=== PATIENT | female | born 1985 | race African-American/Black ===

== ENCOUNTER 2023-06-23 09:17 | Emergency (ER) | payer SELFPAY ==
[2023-06-23 09:19] VITALS: BP 153/95; PULSE 96; RESP 16; TEMP 36.5; O2SAT 100
--- NOTE | 2023-06-23 09:30 | ED.GENADULT ---
HPI - General Adult General Chief complaint: Extremity Problem,Nontraumatic Stated complaint: R THUMB PAIN Time Seen by Provider: 06/23/23 09:21 History of Present Illness HPI narrative: Srinivas Barakat is a 37 y/o female who presents today with complaints of pain to right thumb for 2 days. She denies any known trauma or injury. Related Data Allergies Allergy/AdvReac Type Severity Reaction Status Date / Time blueberry Allergy Difficulty Verified 06/23/23 09:24 Breathing quetiapine [From Seroquel] AdvReac Other Verified 06/23/23 09:24 Review of Systems Review of Systems: CONSTITUTIONAL: Denies fever, chills, or sweats. EYES: Denies visual changes, redness, or discharge. ENT: Denies rhinorrhea, congestion, sore throat, or otalgia. CARDIOVASCULAR: Denies chest pain, palpitations, or edema. RESPIRATORY: Denies cough or dyspnea. GASTROINTESTINAL: Denies abdominal pain, nausea, vomiting, or diarrhea. GENITOURINARY: Denies dysuria or hematuria. SKIN: Denies rash or itching. MUSCULOSKELETAL: Denies back pain, Complains of pain to right thumb NEUROLOGIC: Denies headache, numbness, dizziness, or weakness. PSYCHIATRIC: Denies anxiety or depression. Exam Narrative: GENERAL: Well-appearing, well-nourished, and in no acute distress. HEAD: Normocephalic, atraumatic. EYES: PERRLA and EOMI. ENT: Nares clear, no rhinorrhea or epistaxis. Mucous membranes moist. Oropharynx without tonsillar hypertrophy exudate or other lesions. Bilateral TMs pearly willett nonbulging NECK: Supple. No adenopathy or masses. No carotid bruits or JVD CHEST: Clear to auscultation. No respiratory distress. No wheezes rales or rhonchi HEART: Regular rate and rhythm. No murmur heard. Normal peripheral pulses. ABDOMEN: Soft, nontender, nondistended, normal active bowel sounds. EXTREMITIES: Normal range of motion. Swelling around right thumbnail obvious for paronychia SKIN: Warm, dry, no rash. NEURO: No focal deficits. Alert and oriented x3. PSYCH: Normal mood and affect. Course Vital Signs Vital signs: Vital Signs Temperature 36.5 C 06/23/23 09:19 Pulse Rate 96 06/23/23 09:19 Respiratory Rate 16 09/28/23 09:19 Blood Pressure 153/95 H 06/23/23 09:19 Pulse Oximetry 100 06/23/23 09:19 Oxygen Delivery Room Air 06/23/23 09:19 Temperature 36.5 C 06/23/23 09:19 Pulse Rate 96 06/23/23 09:19 Respiratory Rate 16 06/23/23 09:19 Blood Pressure 153/95 H 06/23/23 09:19 Pulse Oximetry 100 06/23/23 09:19 Oxygen Delivery Room Air 06/23/23 09:19 Procedures Abscess I/D hand: Date of Incision: 06/23/23 Time of Incision: 09:51 Side (if applicable): right Local Anesthetic: none Technique: needle aspiration (stab incision with 21g needle ) Amount of fluid expressed (mL): 2 Packing used?: none I&D Results: Pus and Blood Abcess I&D Additional Comments: patient reports pain reilef after expressing a moderate amount of pus Medical Decision Making MDM Narrative Medical decision making narrative: On exam pt is noted to have swelling around paronychia to right thumb. NO Felon present Moderate swelling and pain noted on exam Talked with pt about doing an incision to get the area to drain and start oral antibiotics. Patient verbalizes understanding and agreement Moderate amount of pus removed from right thumb, pt tolerated and reports of pain relief after procedure Patient encouraged to continue antibiotics as ordered, follow up with PCP in1 week Return to the ED for any worsening symptoms or concerns. Differential Diagnosis Differential Diagnosis: paronychia/ acute infection/ felon Medical Records Medical records reviewed: Yes I reviewed the external patient's medical records. Vital Signs Vital Signs: Vital Signs Temperature 36.5 C 06/23/23 09:19 Pulse Rate 96 06/23/23 09:19 Respiratory Rate 16 06/23/23 09:19 Blood Pressure 153/
[2023-06-23] MEDS: NAPROXEN 500 MG TABLET PO (09:34)
[2023-06-23] MEDS: CEPHALEXIN 500 MG CAPSULE PO (09:35)
== END 2023-06-23 09:54 | disposition home or self-care (01) ==
LOC: ANHED 09:44
PROVIDERS: Emergency Provider Nurse Practitioner Family
DX: L03.011 Cellulitis of right finger (principal)
CPT/HCPCS: 10060; 26010; 87070; 87077; 87186; 87205; 99283; A9270

== ENCOUNTER 2023-07-14 13:46 | Emergency (ER) | payer SELFPAY ==
--- NOTE | ~2023-07-14 | XR_ITS ---
Right Hand Technique: PA, oblique, and lateral views were obtained. Clinical History: Pain and swelling Findings: No acute fracture or dislocation is seen. Osseous alignment is anatomic. Joint spaces are p reserved. Soft tissues are unremarkable. Impression: Unremarkable right hand. Reviewed, dictated and finalized at location . Impression: Unremarkable right hand.
[2023-07-14 13:50] VITALS: BP 122/75; PULSE 100; RESP 18; TEMP 36.1; O2SAT 100
[2023-07-14] MEDS: LIDO 1%/EPINEPHRINE 1:100,000 20 ML VIAL INFILTRATE (15:24)
--- NOTE | 2023-07-14 16:38 | ED.GENADULT ---
HPI - General Adult General Chief complaint: Extremity Injury, Upper Stated complaint: left thumb infection Time Seen by Provider: 07/14/23 14:49 History of Present Illness HPI narrative: Patient is a 37-year-old female who presents ER with infection to her left thumb. Ongoing over the last week and a half. She has been having drainage from around the fingernail of the affected finger. It all began when she had acrylic nails that then broke off and dug into the area. No fevers or chills. No streaking up the arm. There is some skin sloughing of the affected thumb. The thumb feels swollen and has increased pain with bending. Related Data Allergies Allergy/AdvReac Type Severity Reaction Status Date / Time blueberry Allergy Difficulty Verified 06/23/23 09:24 Breathing quetiapine [From Seroquel] AdvReac Other Verified 06/23/23 09:24 Review of Systems Musculoskeletal: Musculoskeletal: Reports arthralgias and Reports joint swelling Integumentary/Breasts: Skin/Breast: Denies erythema and Denies rash Comments: Infection left thumb PMFSH Past Medical History Medical History (Updated 07/14/23 @ 21:36 by Julio Ames MD) Healthy female adult Surgical History Surgical History (Updated 07/14/23 @ 21:36 by Julio Ames MD) No pertinent past surgical history Exam Narrative: GENERAL: Well-appearing, well-nourished, and in no acute distress. HEAD: Normocephalic, atraumatic. CHEST: Clear to auscultation. No respiratory distress. HEART: Regular rate and rhythm. Normal peripheral pulses. EXTREMITIES: Left thumb with paronychia over the radial aspect. Swelling extending into the fat pad of the finger and down towards the first MCP no overt cellulitis. SKIN: Warm, dry, no rash. NEURO: Alert and oriented x3. PSYCH: Normal mood and affect. Course Course Emergency Course: Patient tolerated drainage well. A extra piece of fingernail/acrylic nail was removed from the affected area. Significant amounts of pus were expressed. Loculations probed and broken up. Discharged on oral antibiotic. Vital Signs Vital signs: Vital Signs Temperature 96.9 F L 07/14/23 13:50 Pulse Rate 100 07/14/23 13:50 Respiratory Rate 18 07/14/23 13:50 Blood Pressure 122/75 07/14/23 13:50 Pulse Oximetry 100 07/14/23 13:50 Temperature 96.9 F L 07/14/23 13:50 Pulse Rate 100 07/14/23 13:50 Respiratory Rate 18 07/14/23 13:50 Blood Pressure 122/75 07/14/23 13:50 Pulse Oximetry 100 07/14/23 13:50 Procedures Abscess I/D thumb: Date of Incision: 07/14/23 Time of Incision: 16:30 Side (if applicable): right Local Anesthetic: lidocaine 1% and with epi Amount of anesthesia used (mL): 1.5 Technique: incised with #11 blade Packing used?: none I&D Results: Pus and Other (retained nail) Medical Decision Making Vital Signs Vital Signs: Vital Signs Temperature 96.9 F L 07/14/23 13:50 Pulse Rate 100 07/14/23 13:50 Respiratory Rate 18 07/14/23 13:50 Blood Pressure 122/75 07/14/23 13:50 Pulse Oximetry 100 07/14/23 13:50 Temperature 96.9 F L 07/14/23 13:50 Pulse Rate 100 07/14/23 13:50 Respiratory Rate 18 07/14/23 13:50 Blood Pressure 122/75 07/14/23 13:50 Pulse Oximetry 100 07/14/23 13:50 Imaging Data Radiologist's impression: ITS Impressions Hand X-Ray 07/14/23 14:27 Impression: Unremarkable right hand. Discharge Plan Discharge Clinical Impression: Paronychia Patient Disposition: Home, Self-Care Condition: Stable Instructions: Antibiotic Form, Paronychia (ED) Additional Instructions: Return the ER if you have fever over 100.4 ?F, you cannot keep down food or water, you lose consciousness, you have additional concerns. Prescriptions: New sulfamethoxazole-trimethoprim [Bactrim DS] 800-160 mg tablet 1 tablet PO Q12H Qty: 14 0RF hydrocodone-aceta
== END 2023-07-14 16:56 | disposition home or self-care (01) ==
PROVIDERS: Emergency Provider Emergency Medicine
DX: L03.012 Cellulitis of left finger (principal)
CPT/HCPCS: 26010; 73130; 99283

== ENCOUNTER 2023-07-18 12:14 | Emergency (ER) | payer SELFPAY ==
--- NOTE | ~2023-07-18 | XR_ITS ---
XR hand RT min 3V 07/18/2023 12:33 Indication: Right hand pain after recent injury Procedure: 3 views right hand Comparison: 07/14/2023 Findings: There is a nondisplaced intra-articular fracture proximal aspect of the first distal phalan x. Mild soft tissue swelling. No other fracture. No foreign bodies. Impression: 1: Nondisplaced intra-articular fracture first distal phalanx. Reviewed, dictated and finalized at location B. Impression: 1: Nondisplaced intra-articular fracture first distal phalanx.
--- NOTE | ~2023-07-18 | CT_ITS ---
EXAMINATION: CT hand RT w con DATE: 07/18/2023 14:56 INDICATION: Cellulitis. Assess for abscess. TECHNIQUE: High resolution computed tomography (CT) of the right hand was performed with 100 mL Omnip aque-350 intravenous contrast. Additional sagittal and coronal reconstructions were performed. Automa albino exposure control and iterative reconstruction technique were employed. The dose-length product wa s 502.28 mGy-cm. COMPARISON: Right hand radiographs dated 07/18/2023 FINDINGS: There is osteolysis along a nondisplaced intra-articular fracture at the base of the right first dist al phalanx. There is prominent soft tissue swelling about the first digit with soft tissue gas tracki ng 3 cm proximally from the level of the fracture along the dorsal/ulnar side of the proximal phalanx which is concerning for necrotizing fasciitis. No evident abscess. Extensive soft tissue swelling an d subcutaneous edema extending approximately in the hand across the dorsal aspect of the metacarpals consistent with cellulitis. Alignment remains essentially anatomic. No other fractures identified. Th ere are some mild joint space narrowing at the first interphalangeal joint which appears new since ra diographs from 4 days prior consistent with associated septic arthritis. Remaining joint spaces appea r normal. IMPRESSION: 1. Nondisplaced intra-articular fracture of the base of the right first distal phalanx with new osteo lysis consistent with osteomyelitis and soft tissue gas extending along the proximal phalanx, the lat ter concerning for necrotizing fasciitis. Dr. Hernandez discussed these findings with Dr. Wolf at 3: 30 PM. Reviewed, dictated and finalized at location A. IMPRESSION: 1. Nondisplaced intra-articular fracture of the base of the right first distal phalanx with new osteolysis consistent with osteomyelitis and soft tissue gas e xtending along the proximal phalanx, the latter concerning for necrotizing fasc iitis. Dr. Hernandez discussed these findings with Dr. Wolf at 3:30 PM.
[2023-07-18 12:17] VITALS: BP 102/82; PULSE 96; RESP 18; TEMP 37.1; O2SAT 100
[2023-07-18] MEDS: HYDROmorphone HCL INJ (*CRX) 1 MG/ML SYR 0.5 MG IV PUSH (13:09)
[2023-07-18] MEDS: ceFAZolin 1 GM/NS 50 ML 1 GM/50 ML BAG IVPB (13:10)
[2023-07-18 14:02] LABS: Basophils Percent Auto 0.3 % (0.2-1.2); Eosinophils Percent Auto 0.4 % (0-4.4); Hematocrit 29.8 % (37.0-47.0); Hemoglobin 9.2 g/dL (12.0-15.0); Immature Granulocyte Absolute 0.03 K/mm3 (0.00-0.031); Immature Granulocyte Percent A 0.3 % (0-0.5); Lymphocytes Absolute Auto 0.79 K/mm3 (0.9-3.2); Lymphocytes Percent Auto 7.1 % (18.3-44.2); Mean Corpuscular HGB Conc 30.9 g/dl (32-36); Mean Corpuscular Hemoglobin 24.8 pg (26-34); Mean Corpuscular Volume 80.3 fl (80-100); Mean Platelet Volume 9.8 fl (7.4-10.4); Monocytes Absolute Auto 1.1 K/mm3 (0.1-0.6); Monocytes Percent Auto 9.8 % (2.6-8.5); Neutrophils Absolute Auto 9.2 K/mm3 (1.3-6.7); Neutrophils Percent Auto 82.1 % (45.5-73.1); Platelet Count Result 318 k/mm3 (150-375); Red Blood Count 3.71 M/mm3 (4.2-5.4); Red Cell Distribution Width 17.1 % (11.5-14.5); White Blood Count 11.2 K/mm3 (4.5-10.0)
[2023-07-18 14:15] LABS: Lactic Acid Reflex 0.8 mmol/L (0.7-2.0)
[2023-07-18 14:27] LABS: Alanine Aminotransferase 12 U/L (6-35); Albumin Level 4.4 g/dL (3.5-5.1); Alkaline Phosphatase 92 U/L (38-126); Anion Gap 11 mmol/L (8-16); Aspartate Amino Transferase 14 U/L (14-36); Bilirubin,Total 0.4 mg/dL (0.2-1.3); Blood Urea Nitrogen 17 mg/dL (7-17); Calcium 9.2 mg/dL (8.4-10.2); Carbon Dioxide 20 mmol/L (22-30); Chloride 99 mmol/L (98-107); Estimated CRCL calculation 42 ml/min; Estimated Glomerular Filt Rate > 60; Glucose 273 mg/dL (65-110); Potassium 4.4 mmol/L (3.4-5.0); Sodium 130 mmol/L (137-145)
[2023-07-18 14:30] LABS: CRP 14.7 mg/dL (<1.0)
[2023-07-18 14:44] LABS: Prothrombin Time 13.7 Seconds (11.1-14.7)
[2023-07-18 14:45] LABS: Partial Thromboplastin Time 34.7 SECONDS (22.3-36.8)
--- NOTE | 2023-07-18 15:48 | ED.UPPEXIN ---
HPI - Extremity Injury (Upper) General Chief Complaint: Extremity Injury, Upper Stated Complaint: right thumb swelling Time Seen by Provider: 07/18/23 12:45 History of Present Illness HPI narrative: Pt smashed right thumb in car door and developed paronychia. Pt was seen here 07/14 and had drainage of paronychia. x rays at that time read as negative. Pt says that the pain and swelling in her thumb has increased and gotten much worse over the last days or so. Pt says she has pain up into her wrist and forearm. Pt denies fever. Pt has some tenderness in her right axilla. Related Data Allergies Allergy/AdvReac Type Severity Reaction Status Date / Time blueberry Allergy Difficulty Verified 07/18/23 12:15 Breathing quetiapine [From Seroquel] AdvReac Other Verified 07/18/23 12:15 Review of Systems Review of Systems: All systems reviewed & are unremarkable except as noted in HPI and below PMFSH Past Medical History Medical History (Updated 07/18/23 @ 16:09 by Chapis Wolf III, DO) Healthy female adult Surgical History Surgical History (Updated 07/14/23 @ 21:36 by Jluio Ames MD) No pertinent past surgical history Exam Const: General: healthy appearing Nutritional Appearance: well nourished Orientation/consciousness: patient oriented x3 Limitations: no limitations Resp: Effort & Inspection: normal respiratory effort Auscultation: clear to auscultation bilaterally Cardio: Rate: regular rate Rhythm: regular rhythm GI: GI Palp: Yes Soft to palpation Auscultation: normal bowel sounds Skin: Other: swelling and erythematous right thumb extremely tender Neuro: General: patient oriented x3, moves all extremities and no focal motor deficits Speech: normal speech Extrem: Other: very swollen and erythematous right 1st distal phalynx. right axillary nodes Psych: Mental Status: mental status grossly normal Affect: normal affect Attitude: cooperative Course Vital Signs Vital signs: Vital Signs Temperature 98.8 F 07/18/23 12:17 Pulse Rate 96 07/18/23 12:17 Respiratory Rate 18 07/18/23 12:17 Blood Pressure 102/82 07/18/23 12:17 Pulse Oximetry 100 07/18/23 12:17 Oxygen Delivery Room Air 07/18/23 12:17 Temperature 98.7 F 10/23/23 16:34 Pulse Rate 95 07/18/23 16:34 Respiratory Rate 20 07/18/23 16:34 Blood Pressure 127/81 07/18/23 16:34 Pulse Oximetry 98 07/18/23 16:34 Oxygen Delivery Room Air 07/18/23 12:17 MDM - Extremity Injury (Upper) MDM Narrative Medical decision making narrative: concern for abscess or osteo or even NEC with degree of pain and swelling. will order labs and CT. Will give dose of ancep while waiting. Pt has intrarticular fx 1st distal phalynx on x ray. ct shows this as well as osteo and gas tracking concerning for NEC. Discussed with pt and boyfriend and would prefer [facility]. discussed with Dr Diggs hand surgeon who recommends transfer to ER where they will see her. discussed with Dr Posadas and agrees to accept to ER. said give cefipime and vanc if it will not delay transfer ([facility] will) Lab Data 07/18/23 13:53 07/18/23 13:53 Labs: Lab Results 07/18/23 Range/Units 13:53 WBC 11.2 H (4.5-10.0) K/mm3 RBC 3.71 L (4.2-5.4) M/mm3 Hgb 9.2 L (12.0-15.0) g/dL Hct 29.8 L (37.0-47.0) % MCV 80.3 (80-100) fl MCH 24.8 L (26-34) pg MCHC 30.9 L (32-36) g/dl RDW 17.1 H (11.5-14.5) % Plt Count 318 (150-375) k/mm3 MPV 9.8 (7.4-10.4) fl Immature Gran % (Auto) 0.3 (0-0.5) % Neut % (Auto) 82.1 H (45.5-73.1) % Lymph % (Auto) 7.1 L (18.3-44.2) % Geary % (Auto) 9.8 H (2.6-8.5) % Eos % (Auto) 0.4 (0-4.4) % Baso % (Auto) 0.3 (0.2-1.2) % Lymph # (Auto) 0.79 L (0.9-3.2) K/mm3 Geary # (Auto) 1.1 H (0.1-0.6) K/mm3 Eos # (Auto) 0.0 (0-0.3) K/mm3 Baso # (Auto) 0.0 (0.0-0.1) K/mm3 Abs Immat Gran (auto) 0.03 (0.00-0.031) K/mm3 Absol
[2023-07-18] MEDS: HYDROmorphone HCL INJ (*CRX) 1 MG/ML SYR IV PUSH (16:07)
[2023-07-18] MEDS: CEFEPIME 2 GM/NS 50 ML 2 GM/50 ML BAG IVPB (16:07)
[2023-07-18 16:34] VITALS: BP 127/81; PULSE 95; RESP 20; TEMP 37.1; O2SAT 98
== END 2023-07-18 16:56 | disposition short-term general hospital (02) ==
PROVIDERS: Emergency Provider Emergency Medicine
DX: M86.8X4 Other osteomyelitis, hand (principal); M72.6 Necrotizing fasciitis; S62.524A Nondisplaced fracture of distal phalanx of right thumb, initial encounter for closed fracture; W23.0XXA Caught, crushed, jammed, or pinched between moving objects, initial encounter
CPT/HCPCS: 36415; 73130; 73201; 80053; 83605; 85025; 85610; 85730; 86140; 87040; 96365; 96366; 96375; 96376; 99285; J0690; J0692; J1170; Q9967

== ENCOUNTER 2023-10-07 18:06 | Emergency (ER) | payer SELFPAY ==
[2023-10-07 18:20] VITALS: BP 135/75; PULSE 90; RESP 18; TEMP 36.4; O2SAT 100
[2023-10-07 18:23] LABS: Glucose Point of Care 356 mg/dl (65-105)
[2023-10-07 18:38] LABS: Basophils Percent Auto 0.3 % (0.2-1.2); Eosinophils Percent Auto 0.3 % (0-4.4); Hematocrit 37.3 % (37.0-47.0); Hemoglobin 11.2 g/dL (12.0-15.0); Immature Granulocyte Absolute 0.02 K/mm3 (0.00-0.031); Immature Granulocyte Percent A 0.3 % (0-0.5); Lymphocytes Absolute Auto 1.15 K/mm3 (0.9-3.2); Lymphocytes Percent Auto 15.2 % (18.3-44.2); Mean Corpuscular Hemoglobin 24.4 pg (26-34); Mean Corpuscular Volume 81.3 fl (80-100); Mean Platelet Volume 10.2 fl (7.4-10.4); Monocytes Absolute Auto 0.3 K/mm3 (0.1-0.6); Monocytes Percent Auto 3.6 % (2.6-8.5); Neutrophils Absolute Auto 6.1 K/mm3 (1.3-6.7); Neutrophils Percent Auto 80.3 % (45.5-73.1); Platelet Count Result 431 k/mm3 (150-375); Red Blood Count 4.59 M/mm3 (4.2-5.4); Red Cell Distribution Width 18.8 % (11.5-14.5); White Blood Count 7.6 K/mm3 (4.5-10.0)
[2023-10-07 18:52] LABS: Alanine Aminotransferase 28 U/L (6-35); Albumin Level 4.9 g/dL (3.5-5.1); Alkaline Phosphatase 103 U/L (38-126); Anion Gap 12 mmol/L (8-16); Aspartate Amino Transferase 33 U/L (14-36); Bilirubin,Total 0.4 mg/dL (0.2-1.3); Blood Urea Nitrogen 14 mg/dL (7-17); Calcium 10.2 mg/dL (8.4-10.2); Carbon Dioxide 27 mmol/L (22-30); Chloride 101 mmol/L (98-107); Estimated CRCL calculation 54 ml/min; Estimated Glomerular Filt Rate > 60; Glucose 377 mg/dL (65-110); Lipase 43 U/L (23-300); Sodium 140 mmol/L (137-145)
[2023-10-07 19:58] VITALS: BP 147/93; PULSE 82; RESP 19; TEMP 36.4; O2SAT 100
--- NOTE | 2023-10-07 20:15 | ED.GENADULT ---
HPI - General Adult General Chief complaint: Nausea/Vomiting/Diarrhea Stated complaint: N/V/D Time Seen by Provider: 10/07/23 19:47 History of Present Illness HPI narrative: This is a 38-year-old female presenting with nausea and vomiting. Symptoms started at 4:00 a.m.. There is associated with diffuse abdominal pain. Patient has had this occur in the past. She uses marijuana daily. Patient has been told she has vomiting. Related Data Allergies Allergy/AdvReac Type Severity Reaction Status Date / Time blueberry Allergy Difficulty Verified 07/18/23 12:15 Breathing quetiapine [From Seroquel] AdvReac Other Verified 07/18/23 12:15 PMFSH Past Medical History Medical History Diabetes Healthy female adult Surgical History Surgical History No pertinent past surgical history Social History Social History Other substance usage details: Marijuana Exam Narrative: APPEARANCE: Patient is moaning throughout the interview, she will not sit still Head: atraumatic. EYES: EOMI, NOSE: Atraumatic NECK: Trachea midline RESPIRATORY: No increased rate of breathing, CTAB CARDIOVASCULAR: RRR, ABDOMINAL: Non-distended, abdomen is soft nontender no guarding or rebound MUSCULOSKELETAl: No obvious deformities NEURO: Alert. Moving 4/4 extremities SKIN:: Warm, dry. Normal color PSYCHIATRIC: Normal affect Course Vital Signs Vital signs: Vital Signs Temperature 97.5 F L 10/07/23 18:20 Pulse Rate 90 10/07/23 18:20 Respiratory Rate 18 10/07/23 18:20 Blood Pressure 135/75 10/07/23 18:20 Pulse Oximetry 100 10/07/23 18:20 Oxygen Delivery Room Air 10/07/23 18:20 Temperature 97.5 F L 10/07/23 19:58 Pulse Rate 101 H 10/07/23 22:22 Respiratory Rate 15 10/07/23 22:22 Blood Pressure 111/75 10/07/23 22:22 Pulse Oximetry 98 10/07/23 22:22 Oxygen Delivery Room Air 10/07/23 18:20 Medical Decision Making [facility] Narrative Medical decision making narrative: -Course: 38-year-old female presenting with nausea and vomiting. History and physical are consistent with cyclic vomiting due to marijuana use. Patient given symptomatic treatment. She has been resting comfortably in the emergency department. Tolerating p.o.. Patient will be discharged instructions stop using marijuana -DDX includes but is not limited to: Cyclic vomiting, gastroenteritis, flu, COVID, biliary pathology, appendicitis, colitis -Co-morbidities complicating care: Daily marijuana use, diabetes -Independent interpretation of studies: Laboratory studies within normal limits. Blood sugar elevated at 350 with no evidence of DKA. -Interventions: 2 L normal saline, 5 mg of Haldol, 4 mg Zofran, 20 mg Pepcid, Benadryl 25mg, compazine 10mg -Shared decision making / Disposition: Discharge Vital Signs Vital Signs: Vital Signs Temperature 97.5 F L 10/07/23 18:20 Pulse Rate 90 10/07/23 18:20 Respiratory Rate 18 10/07/23 18:20 Blood Pressure 135/75 10/07/23 18:20 Pulse Oximetry 100 10/07/23 18:20 Oxygen Delivery Room Air 10/07/23 18:20 Temperature 97.5 F L 10/07/23 19:58 Pulse Rate 101 H 10/07/23 22:22 Respiratory Rate 15 10/07/23 22:22 Blood Pressure 111/75 10/07/23 22:22 Pulse Oximetry 98 10/07/23 22:22 Oxygen Delivery Room Air 10/07/23 18:20 Lab Data 10/07/23 18:20 10/07/23 18:20 Labs: Lab Results 10/07/23 10/07/23 10/07/23 Range/Units 18:15 18:20 20:17 WBC 7.6 (4.5-10.0) K/mm3 RBC 4.59 (4.2-5.4) M/mm3 Hgb 11.2 L (12.0-15.0) g/dL Hct 37.3 (37.0-47.0) % MCV 81.3 (80-100) fl MCH 24.4 L (26-34) pg MCHC 30.0 L (32-36) g/dl RDW 18.8 H (11.5-14.5) % Plt Count 431 H (150-375) k/mm3 MPV 10.2 (7.4-10.4) fl Immature Gran % (Auto) 0.
[2023-10-07] MEDS: HALOPERIDOL LACTATE 5 MG/ML VIAL IM (20:16)
[2023-10-07 20:21] LABS: Glucose Point of Care 406 mg/dl (65-105)
--- NOTE | 2023-10-07 20:48 | PC.NURSE ---
While attempting to get IV access on pt. Pt stated IM going to im so thirsty, please get me some water . This RN made pt aware she cannot have something to drink until she is not dry heaving/nauseous. Pt states I just want to leave this place if I cant get no water . Provider made aware
[2023-10-07 21:04] LABS: Influenza A QL RT-PCR Negative (Negative); Influenza B QL RT-PCR Negative (Negative); RSV RNA, RT-PCR Negative (Negative); SARS-CoV-2 RNA PCR Negative (Negative)
[2023-10-07] MEDS: SODIUM CHLORIDE 0.9% IV 2,000 ML 999 ML IV CONT (21:33)
[2023-10-07] MEDS: ONDANSETRON INJ 4 MG/2 ML VIAL IV PUSH (21:34)
[2023-10-07] MEDS: FAMOTIDINE 20 MG/2 ML VIAL IV PUSH (21:35)
[2023-10-07 22:22] VITALS: BP 111/75; PULSE 101; RESP 15; O2SAT 98
[2023-10-07 22:30] LABS: Appearance Urine Cloudy (Clear); Bacteria Urine None Seen /hpf; Bilirubin Urine Negative (Negative); Blood Urine Trace (Negative); Color Urine Yellow (Yellow); Glucose Urine UA 3+ mg/dL (Negative); Ketones Urine 1+ mg/dL (Negative); Leukocyte Esterase Ur Negative LEU/UL (Negative); Need Manual Microscopic Reviewed; Nitrate Urine Negative (Negative); Protein Urine 1+ mg/dL (Negative); RBC Urine 0-2 /hpf (0-2); Specific Grav Ur 1.029 (1.001-1.035); Squamous Epithelial Cell Urine Occasional /hpf (Few); Urobilinogen Urine 0.2 mg/dL (<2.0); WBC Urine 0-5 /hpf
[2023-10-07] MEDS: diphenhydrAMINE HCl INJ 50 MG/ML VIAL 25 MG IV PUSH (22:34)
[2023-10-07] MEDS: PROCHLORPERAZINE EDISYLATE 10 MG/2 ML VIAL IM (22:34)
[2023-10-07 22:53] LABS: Add Urine Microscopic? YES
[2023-10-08 00:41] VITALS: BP 126/76; PULSE 96; RESP 16; O2SAT 100
== END 2023-10-08 00:43 | disposition home or self-care (01) ==
LOC: ANHED 21:28
PROVIDERS: Emergency Medicine; Emergency Provider Emergency Medicine
DX: R11.15 Cyclical vomiting syndrome unrelated to migraine (principal); F12.90 Cannabis use, unspecified, uncomplicated; Z20.822 Contact with and (suspected) exposure to COVID-19; E11.9 Type 2 diabetes mellitus without complications
CPT/HCPCS: 36415; 80053; 81001; 82948; 83690; 85025; 87637; 96361; 96372; 96374; 96375; 99284; J0780; J1200; J1630; J2405; J7030

== ENCOUNTER 2023-11-23 10:34 | Emergency (ER) | payer MEDICAID, SELFPAY ==
[2023-11-23] VITALS (10 sets, daily range): BP systolic 102–156; BP diastolic 72–102; PULSE 81–103; RESP 14–20; TEMP 36.4–36.9; O2SAT 100
--- NOTE | ~2023-11-23 | CT_ITS ---
EXAMINATION: CT abdomen pelvis w con DATE: 11/23/2023 12:27 INDICATION: Generalized abdominal pain. Nausea and vomiting. TECHNIQUE: Computed tomography (CT) of the abdomen and pelvis was performed with 100 mL Omnipaque 350 intravenous contrast. Automated exposure control and iterative reconstruction technique were employe d. The dose-length product was 168.40 mGy-cm. COMPARISON: None. FINDINGS: The visualized portions of the lung bases are clear without pneumonia or pleural effusion. The heart size is normal. No pericardial effusion. There is wall thickening of distal esophagus. The liver and spleen are normal. There are changes of cholecystectomy. The pancreas and adrenal glands ar e normal. There is cortical thinning of the kidneys. There are no dilated loops of bowel. The appendi x is normal. There is asymmetric fat in right inguinal canal that may be a hernia. There are no patho logically enlarged lymph nodes. There is no free intraperitoneal fluid. Lumbar levocurvature is noted . IMPRESSION: 1. Wall thickening of distal esophagus, consistent with esophagitis. Reviewed, dictated and finalized at location A. MANAGEMENT ADVISER
--- NOTE | ~2023-11-23 | XR_ITS ---
EXAMINATION: XR chest 1V portable DATE: 11/23/2023 12:04 INDICATION: Nausea, vomiting and diarrhea. Possible diabetic ketoacidosis. TECHNIQUE: frontal view of the chest was obtained. COMPARISON: None FINDINGS: The lungs are clear with no focal airspace opacities, pulmonary edema, pleural effusion or pneumothor ax. The cardiomediastinal silhouette is normal. Likely cholecystectomy clips in right upper quadrant. Visualized bones and soft tissues are unremarkable. IMPRESSION: 1. No acute cardiopulmonary disease. Reviewed, dictated and finalized at location B. [employer]
--- NOTE | 2023-11-23 10:40 | ED.NAVMDI ---
HPI - Nausea/Vomiting/Diarrhea General Chief complaint: Nausea/Vomiting/Diarrhea Stated complaint: N/V/D x 2 days History of Present Illness HPI Narrative: 38-year-old female history of insulin-dependent diabetes reports for evaluation for nausea and vomiting x3 days. Patient states she ran out of her insulin 4-5 days ago. She reports multiple episodes of emesis, generalized abdominal and flank pain. Denies diarrhea, dysuria or hematuria, urinary frequency or urgency, cough or congestion, fever. She is currently on her period. Patient is also requesting for us to take a suture in her right thumb. States she had sutures placed 6 weeks ago and never got the removed. Related Data Home Medications Medication Instructions Recorded Confirmed insulin detemir U-100 100 unit/mL 15 unit subcut TID 11/23/23 11/23/23 (3 mL) subcutaneous pen (Levemir FlexPen) Allergies Allergy/AdvReac Type Severity Reaction Status Date / Time No Known Allergies Allergy Verified 11/23/23 10:40 Review of Systems Review of Systems: CONSTITUTIONAL: Denies fever, chills, or sweats. EYES: Denies visual changes, redness, or discharge. ENT: Denies rhinorrhea, congestion, sore throat, or otalgia. CARDIOVASCULAR: Denies chest pain, palpitations, or edema. RESPIRATORY: Denies cough or dyspnea. GASTROINTESTINAL: See HPI GENITOURINARY: Denies dysuria or hematuria. SKIN: Denies rash or itching. MUSCULOSKELETAL: Denies back pain, joint pain, or myalgia. NEUROLOGIC: Denies headache, numbness, or weakness. PSYCHIATRIC: Denies anxiety or depression. Exam Narrative: GENERAL: Ill-appearing, moaning, writhing in exam bed HEAD: Normocephalic, atraumatic. EYES: PERRLA and EOMI. ENT: Nares clear, no rhinorrhea or epistaxis. Mucous membranes dry NECK: Supple. CHEST: Clear to auscultation. No respiratory distress. HEART: Regular rate and rhythm. No murmur heard. Normal peripheral pulses. ABDOMEN: Normoactive bowel sounds. Generalized abdominal tenderness with voluntary guarding. No rebound or rigidity. No CVA tenderness. EXTREMITIES: Normal range of motion. No edema. 1 suture to R thumb in place. No surrounding erythema, induration, fluctuation, drainage. SKIN: Warm, dry, no rash. NEURO: No focal deficits. Alert and oriented x3 Course Vital Signs Vital signs: Vital Signs Temperature 97.6 F 11/23/23 10:32 Pulse Rate 93 11/23/23 10:32 Respiratory Rate 20 11/23/23 10:32 Blood Pressure 156/102 H 11/23/23 10:32 Pulse Oximetry 100 11/23/23 10:32 Oxygen Delivery Room Air 11/23/23 10:32 Temperature 98.5 F 11/23/23 16:25 Pulse Rate 92 11/23/23 16:25 Respiratory Rate 15 11/23/23 16:25 Blood Pressure 118/77 11/23/23 16:25 Pulse Oximetry 100 11/23/23 16:25 Oxygen Delivery Room Air 11/23/23 10:32 MDM - Nausea/Vomiting/Diarrhea MDM Narrative Medical decision making narrative: 38-year-old female with history of insulin-dependent diabetes reports for evaluation for nausea, vomiting and generalized abdominal pain x3 days. See HPI for further history. Vitals significant for elevated blood pressure, otherwise unremarkable. She is afebrile. Exam is significant for the above. CBC is without leukocytosis. Chemistries remarkable for elevated BUN of 32 and creatinine 1.4, likely dehydration. Lactic acid also elevated to 27. She has normal bicarb, no anion gap. Urinalysis without ketonuria. VBG shows normal pH. There is blood on the UA, she is currently on her period. COVID, flu and RSV are negative. Lipase normal. Chest x-ray shows no acute cardiopulmonary disease. Mag and phos are elevated which again is likely secondary to hemoconcentration and dehydration. Chest x-ray shows no acute cardiopulmonary disease. CT abdomen pelvis shows wall thickening of distal esophagus, consistent with esophagitis. Labs and imaging discussed with the patient. Suture to R thumb was removed without complications. She r
[2023-11-23] MEDS: SODIUM CHLORIDE 0.9% IV 1,000 ML 999 ML IV CONT ×2 (10:48→10:49)
[2023-11-23] MEDS: ONDANSETRON INJ 4 MG/2 ML VIAL IV PUSH (10:48)
[2023-11-23 11:27] LABS: Fractional Inspired Oxygen 21 %; HCO3 VBG 29.7 mEq/l (24.0-30.0); PCO2 VBG 54.9 mmHg (42.0-48.0); PO2 VBG 31.3 mmHg (35.0-45.0); pH VBG 7.351 (7.300-7.400)
[2023-11-23 11:29] LABS: Device ROOM AIR
[2023-11-23 11:45] LABS: Basophils Percent Auto 0.4 % (0.2-1.2); Hematocrit 37.6 % (37.0-47.0); Hemoglobin 11.7 g/dL (12.0-15.0); Immature Granulocyte Absolute 0.03 K/mm3 (0.00-0.031); Immature Granulocyte Percent A 0.4 % (0-0.5); Lymphocytes Absolute Auto 1.17 K/mm3 (0.9-3.2); Lymphocytes Percent Auto 16.4 % (18.3-44.2); Mean Corpuscular HGB Conc 31.1 g/dl (32-36); Mean Corpuscular Hemoglobin 24.4 pg (26-34); Mean Corpuscular Volume 78.3 fl (80-100); Mean Platelet Volume 10.1 fl (7.4-10.4); Monocytes Absolute Auto 0.3 K/mm3 (0.1-0.6); Monocytes Percent Auto 4.2 % (2.6-8.5); Neutrophils Absolute Auto 5.6 K/mm3 (1.3-6.7); Neutrophils Percent Auto 78.6 % (45.5-73.1); Platelet Count Result 434 k/mm3 (150-375); Red Cell Distribution Width 18.6 % (11.5-14.5); White Blood Count 7.1 K/mm3 (4.5-10.0)
[2023-11-23 11:54] LABS: Lactic Acid Reflex 3.7 mmol/L (0.7-2.0)
[2023-11-23 11:59] LABS: Appearance Urine Cloudy (Clear); Bacteria Urine 1+ /hpf; Beta-Hydroxybutyrate/Acetoacetate 0.58 mmol/L (0.02-0.27); Bilirubin Urine Negative (Negative); Blood Urine 3+ (Negative); Color Urine Yellow (Yellow); Glucose Urine UA 3+ mg/dL (Negative); Ketones Urine Negative (Negative); Leukocyte Esterase Ur Negative LEU/UL (Negative); Need Manual Microscopic Reviewed; Nitrate Urine Negative (Negative); Protein Urine 1+ mg/dL (Negative); Specific Grav Ur 1.025 (1.001-1.035); Squamous Epithelial Cell Urine Moderate /hpf (Few); Urobilinogen Urine 0.2 mg/dL (<2.0); WBC Urine 0-5 /hpf
[2023-11-23 12:00] LABS: Alanine Aminotransferase 23 U/L (6-35); Albumin Level 4.6 g/dL (3.5-5.1); Alkaline Phosphatase 110 U/L (38-126); Anion Gap 11 mmol/L (8-16); Aspartate Amino Transferase 23 U/L (14-36); Bilirubin,Total 0.4 mg/dL (0.2-1.3); Blood Urea Nitrogen 32 mg/dL (7-17); Calcium 9.9 mg/dL (8.4-10.2); Carbon Dioxide 28 mmol/L (22-30); Chloride 94 mmol/L (98-107); Estimated CRCL calculation 36 ml/min; Estimated Glomerular Filt Rate 51; Glucose 609 mg/dL (65-110); Lipase 81 U/L (23-300); Magnesium 2.5 mg/dL (1.6-2.3); Potassium 4.2 mmol/L (3.4-5.0); Sodium 133 mmol/L (137-145)
[2023-11-23 12:02] LABS: Add Urine Microscopic? YES
[2023-11-23] MEDS: HALOPERIDOL LACTATE 5 MG/ML VIAL IM (12:06)
[2023-11-23 12:17] LABS: Influenza A QL RT-PCR Negative (Negative); Influenza B QL RT-PCR Negative (Negative); RSV RNA, RT-PCR Negative (Negative); SARS-CoV-2 RNA PCR Negative (Negative)
[2023-11-23 14:38] LABS: Reflex Lactic Acid Yes or No Add Lactic
[2023-11-23 15:01] LABS: Glucose Point of Care 475 mg/dl (65-105)
[2023-11-23] MEDS: INSULIN HUMAN REGULAR (*BKC) 100 UNITS/ML 10 UNITS IV PUSH (15:08)
[2023-11-23 15:17] LABS: Lactic Acid 1.7 mmol/L (0.7-2.0)
[2023-11-23 15:57] LABS: Glucose Point of Care 240 mg/dl (65-105)
[2023-11-23] MEDS: IBUPROFEN 600 MG TABLET PO (16:18)
--- NOTE | 2023-11-23 16:18 | PC.NURSE ---
pt states their jaw began feeling tight which has happened to them before. pt requested ibuprofen which helped them in the past. provider notified
== END 2023-11-23 16:40 | disposition home or self-care (01) ==
PROVIDERS: Emergency Provider Physician Assistant
DX: K52.9 Noninfective gastroenteritis and colitis, unspecified (principal); K20.90 Esophagitis, unspecified without bleeding; E11.65 Type 2 diabetes mellitus with hyperglycemia; E86.0 Dehydration; S61.031D Puncture wound without foreign body of right thumb without damage to nail, subsequent encounter; Z20.822 Contact with and (suspected) exposure to COVID-19; T38.3X6A Underdosing of insulin and oral hypoglycemic [antidiabetic] drugs, initial encounter; Z91.138 Patient's unintentional underdosing of medication regimen for other reason; Z79.4 Long term (current) use of insulin; X58.XXXD Exposure to other specified factors, subsequent encounter
CPT/HCPCS: 15853; 36415; 71045; 74177; 80053; 81001; 81025; 82010; 82803; 82948; 83605; 83690; 83735; 84100; 85025; 87637; 96361; 96372; 96374; 96375; 99284; A9270; J1630; J1815; J2405; J7030; Q9967

== ENCOUNTER 2023-11-27 20:44 | Emergency (ER) | payer MEDICAID, SELFPAY ==
[2023-11-27 20:46] VITALS: BP 133/98; PULSE 98; RESP 18; TEMP 37.2; O2SAT 98
--- NOTE | 2023-11-27 20:53 | ECG_ITS ---
Measurements Intervals [place] Rate: 96 P: 65 HI: 125 QRS: 58 QRSD: 74 T: 41 QT: 351 QTc: 445 Interpretive Statements SINUS RHYTHM POSSIBLE RIGHT ATRIAL ENLARGEMENT NONSPECIFIC T-WAVE ABNORMALITY- INF/LAT LEADS BORDERLINE ECG NO PREVIOUS ECG AVAILABLE FOR COMPARISON Electronically Signed On 11-28-2023 6:47:13 GUARD MANAGER by Nikhil Diaz D.O.
[2023-11-27 21:04] LABS: Basophils Percent Auto 0.4 % (0.2-1.2); Eosinophils Percent Auto 0.7 % (0-4.4); Hematocrit 36.9 % (37.0-47.0); Hemoglobin 11.5 g/dL (12.0-15.0); Immature Granulocyte Absolute 0.01 K/mm3 (0.00-0.031); Immature Granulocyte Percent A 0.2 % (0-0.5); Lymphocytes Absolute Auto 2.15 K/mm3 (0.9-3.2); Lymphocytes Percent Auto 40.2 % (18.3-44.2); Mean Corpuscular HGB Conc 31.2 g/dl (32-36); Mean Corpuscular Hemoglobin 24.2 pg (26-34); Mean Corpuscular Volume 77.7 fl (80-100); Mean Platelet Volume 9.6 fl (7.4-10.4); Monocytes Absolute Auto 0.5 K/mm3 (0.1-0.6); Monocytes Percent Auto 9.5 % (2.6-8.5); Neutrophils Absolute Auto 2.6 K/mm3 (1.3-6.7); Platelet Count Result 462 k/mm3 (150-375); Red Blood Count 4.75 M/mm3 (4.2-5.4); Red Cell Distribution Width 17.4 % (11.5-14.5); White Blood Count 5.4 K/mm3 (4.5-10.0)
[2023-11-27 21:14] LABS: Alanine Aminotransferase 19 U/L (6-35); Albumin Level 4.3 g/dL (3.5-5.1); Alkaline Phosphatase 73 U/L (38-126); Anion Gap 9 mmol/L (8-16); Aspartate Amino Transferase 30 U/L (14-36); Bilirubin,Total 0.8 mg/dL (0.2-1.3); Blood Urea Nitrogen 46 mg/dL (7-17); Calcium 9.3 mg/dL (8.4-10.2); Carbon Dioxide 31 mmol/L (22-30); Chloride 90 mmol/L (98-107); Estimated CRCL calculation 35 ml/min; Estimated Glomerular Filt Rate 51; Glucose 294 mg/dL (65-110); Lipase 59 U/L (23-300); Sodium 130 mmol/L (137-145)
[2023-11-27 21:40] LABS: Influenza A QL RT-PCR Negative (Negative); Influenza B QL RT-PCR Negative (Negative); SARS-CoV-2 RNA PCR Negative (Negative)
--- NOTE | 2023-11-27 21:50 | ED.GENADULT ---
HPI - General Adult General Chief complaint: Nausea/Vomiting/Diarrhea Stated complaint: n/v/d Time Seen by Provider: 11/27/23 21:07 Source: patient Mode of arrival: EMS Limitations: no limitations History of Present Illness HPI narrative: This is a 38-year-old female with PMH of insulin-dependent diabetes who presents to the ED via EMS for chief complaint of generalized abdominal pain and N/V/D for 6 days. Reports she was seen 3 days ago and told that she had a negative workup. Patient reports several episodes of vomiting and is unable to tell me how many. She reports she is ?vomiting buckets. Endorses 3-4 episodes of diarrhea. Patient states that she is ?wasting away.? She is telling me to look at her and raising her arms up during the exam. Denies fevers, chills, GI bleeding symptoms, cough, chest pain, shortness of breath, back pain. Related Data Allergies Allergy/AdvReac Type Severity Reaction Status Date / Time blueberry Allergy Difficulty Verified 07/18/23 12:15 Breathing haloperidol [From Haldol] AdvReac Intermediate tongue Verified 11/28/23 01:44 protrusion quetiapine [From Seroquel] AdvReac Other Verified 07/18/23 12:15 Review of Systems Review of Systems: All systems as dictated in HPI [facility] Past Medical History Medical History Diabetes Healthy female adult Surgical History Surgical History No pertinent past surgical history Social History Social History Other substance usage details: Marijuana Exam Narrative: GENERAL: Tearful and wailing in the bed. HEAD: Normocephalic, atraumatic. EYES: PERRLA and EOMI. ENT: Nares clear, no rhinorrhea or epistaxis. Mucous membranes moist. Oropharynx without tonsillar hypertrophy exudate or other lesions. NECK: Supple. No adenopathy or masses. CHEST: No respiratory distress. Clear to auscultation. No wheezes rales or rhonchi HEART: Regular rate and rhythm. No murmur heard. Normal peripheral pulses. ABDOMEN: Soft, nontender, nondistended, normal active bowel sounds. MSK: Normal range of motion. No edema. SKIN: Warm, dry, no rash. NEURO: Alert and oriented x3. No focal deficits. PSYCH: Anxious mood. Full affect. Course Course Emergency Course: Re-evaluation: nursing staff called myself and attending over for adverse effect to the Haldol. On evaluation tongue is sticking out and she is able to tell us that feels like it is sticking out. There is no tongue swelling, lip swelling or signs of angioedema or anaphylaxis. Re-evaluation 2343: Benadryl is helping to resolve the onset of likely extrapyramidal symptom with Haldol. She is resting comfortably in bed. Vital Signs Vital signs: Vital Signs Temperature 98.9 F 11/27/23 20:46 Pulse Rate 98 11/27/23 20:46 Respiratory Rate 18 11/27/23 20:46 Blood Pressure 133/98 H 11/27/23 20:46 Pulse Oximetry 98 11/27/23 20:46 Oxygen Delivery Room Air 11/27/23 20:46 Temperature 98.7 F 11/28/23 01:25 Pulse Rate 77 11/28/23 01:25 Respiratory Rate 15 11/28/23 01:25 Blood Pressure 127/68 11/28/23 01:25 Pulse Oximetry 100 11/28/23 01:25 Oxygen Delivery Room Air 11/27/23 20:46 Medical Decision Making MDM Narrative Medical decision making narrative: This is a 38-year-old female who presents to the ED for chief complaint of abdominal pain, vomiting and diarrhea for the past 6 days. Vitals are normal. Exam is unremarkable. No focal abdominal tenderness or evidence of acute abdomen. Lab work shows normal white count on the CBC. Slight anemia that is stable is detected. CMP remarkable for slight hyponatremia, hypochloremia. No elevation of the anion gap. BUN elevated to 46 and creatinine to 1.40, consistent with dehydration. Sugar is elevated to 294. She has not been taking her insulin as
[2023-11-27] MEDS: SODIUM CHLORIDE 0.9% IV 1,000 ML 999 ML IV CONT (22:05)
[2023-11-27] MEDS: HALOPERIDOL LACTATE 5 MG/ML VIAL IM (22:05)
[2023-11-27] MEDS: KETOROLAC 15 MG/ML VIAL (*BKC) IV PUSH (22:08)
[2023-11-27] MEDS: diphenhydrAMINE HCl INJ 50 MG/ML VIAL IV PUSH (22:54)
--- NOTE | 2023-11-27 22:54 | PC.NURSE ---
Tech in room answering pts call light to find pt standing at edge of bed with her tongue sticking out and unable to speak well. This RN in room and noticed immediately pts tongue swollen and protruding out of mouth. Dr. Banks at bedside and verbal orders given for 50mg IV benedryl. Pt assisted back to bed, meds given. All monitoring on and pt resting in bed.
[2023-11-27 23:07] VITALS: BP 115/75; PULSE 74; RESP 15; TEMP 37.8; O2SAT 100
[2023-11-27] MEDS: ACETAMINOPHEN 500 MG TABLET 1000 MG PO (23:35)
[2023-11-28 00:31] VITALS: BP 100/73; PULSE 92
[2023-11-28 00:32] VITALS: BP 95/77; PULSE 93
[2023-11-28 00:33] VITALS: BP 84/70; PULSE 113
[2023-11-28] MEDS: SODIUM CHLORIDE 0.9% IV 1,000 ML 999 ML IV CONT (00:39)
[2023-11-28] MEDS: diphenhydrAMINE HCl INJ 50 MG/ML VIAL IV PUSH (00:41)
[2023-11-28 01:01] VITALS: BP 128/84; PULSE 87; RESP 16; O2SAT 100
[2023-11-28 01:25] VITALS: BP 127/68; PULSE 77; RESP 15; TEMP 37.1; O2SAT 100
== END 2023-11-28 01:27 | disposition home or self-care (01) ==
PROVIDERS: Emergency Medicine; Emergency Provider Physician Assistant
DX: K52.9 Noninfective gastroenteritis and colitis, unspecified (principal); E86.0 Dehydration; Z20.822 Contact with and (suspected) exposure to COVID-19; E11.9 Type 2 diabetes mellitus without complications; R94.31 Abnormal electrocardiogram [ECG] [EKG]; Z79.4 Long term (current) use of insulin
CPT/HCPCS: 36415; 80053; 83690; 85025; 87636; 93005; 96361; 96372; 96374; 96375; 99284; A9270; J1200; J1630; J1885; J7030

== ENCOUNTER 2024-04-05 21:53 | Inpatient (IN) | payer MEDICAID, SELFPAY ==
--- NOTE | ~2024-04-05 | XR_ITS ---
EXAMINATION: XR ankle LT min 3V DATE: 04/05/2024 22:38 INDICATION: Left ankle swelling. Fall. TECHNIQUE: 3 views of left ankle were obtained. COMPARISON: None. FINDINGS: Bone alignment is normal. No fracture. Joint spaces are normal. There is ankle soft tissue swelling. IMPRESSION: 1. No fracture. Reviewed, dictated and finalized at location E. IMPRESSION: 1. No fracture.
--- NOTE | ~2024-04-05 | XR_ITS ---
EXAMINATION: XR finger 1st RT min 2V DATE: 04/05/2024 22:38 INDICATION: Right thumb swelling. Fall. TECHNIQUE: 3 views of right thumb were obtained. COMPARISON: Right hand radiographs 07/18/2023 FINDINGS: There is dorsal subluxation of first distal phalanx with respect to the proximal phalanx. N o fracture. There are erosions at first interphalangeal joint. IMPRESSION: 1. Erosions at first interphalangeal joint, consistent with septic arthritis. Reviewed, dictated and finalized at location E.
--- NOTE | ~2024-04-05 | XR_ITS ---
EXAMINATION: XR foot LT min 3V DATE: 04/05/2024 22:38 INDICATION: Left foot swelling. Fall. TECHNIQUE: 3 views of left foot were obtained. COMPARISON: None. FINDINGS: Alignment is normal. No fracture. There are erosions of tuft of first distal phalanx. Joint spaces are normal. IMPRESSION: 1. Erosions of tuft of first distal phalanx, consistent with osteomyelitis. Reviewed, dictated and finalized at location E.
--- NOTE | ~2024-04-05 | US_ITS ---
Pelvic ultrasound. Clinical History: First trimester , cramping Technique: Realtime transabdominal scanning of the pelvis was performed. Color flow Doppler and Doppl er spectral analysis were performed. Patient refused transvaginal imaging. Findings: The uterus is anteverted. The endometrial stripe has a thickness of 17 mm. No intrauterine gestational sac is identified. The right ovary measures 1.5 x 0.8 x 1.0 cm. No significant right ovarian or adnexal mass is seen. The left ovary measures 2.8 x 2.8 x 2.0 cm. No significant left ovarian or adnexal mass is seen. There is no evidence of free fluid in the cul de sac. Impression: Positive test without intrauterine gestational sac. Differential diagnosis includes early n ormal , spontaneous , or nonvisualized ectopic . Correlate clinically. Cont inued follow-up with serial beta hCG, and repeat ultrasound as warranted, is advised. Reviewed, dictated and finalized at location . Impression: Positive test without intrauterine gestational sac. Differential diag nosis includes early normal , spontaneous , or nonvisualized e ctopic . Correlate clinically. Continued follow-up with serial beta hC G, and repeat ultrasound as warranted, is advised.
--- NOTE | ~2024-04-05 | US_ITS ---
EXAMINATION: US OB <=14 wk fetus w TV DATE: 04/08/2024 11:43 INDICATION: Prior tubal ligation presenting with positive ECG and concern for tubal TECHNIQUE: Real-time pelvic ultrasound utilizing both a transvaginal and transabdominal probe was pe rformed. The interpreting radiologist was not present for the study. COMPARISON: None. FINDINGS: The uterus measures 10.6 x 5.4 x 6.5 cm. The endometrial complex measures 11 mm in thickness. There is no evident intrauterine gestational sac. The right ovary is not visualized. There is a 2.9 x 1.8 x 3.2 centrally anechoic peripherally hypoech oic structure with prominent peripheral vascular flow in the left adnexal region but appearing to abu t the uterus near the cornua. Differential would include corpus luteum cyst within the left ovary or potentially a gestational sac within the left fallopian tube. There is no free fluid in the pelvis. IMPRESSION: 1. No intrauterine gestational sac. Differential would include early, failed or ectopic . 2. 2.9 x 1.8 x 3.2 cm complex cystic lesion at the left adnexal region abutting the uterine fundus im mediately adjacent to the cornua with differential including either corpus luteum cyst within the ova ry but could also represent a gestational sac within a tubal . Reviewed, dictated and finalized at location A. IMPRESSION: 1. No intrauterine gestational sac. Differential would include early, failed or ectopic . 2. 2.9 x 1.8 x 3.2 cm complex cystic lesion at the left adnexal region abutting the uterine fundus immediately adjacent to the cornua with differential includ ing either corpus luteum cyst within the ovary but could also represent a gesta tional sac within a tubal .
--- NOTE | ~2024-04-05 | XR_ITS ---
XR chest PICC line Ordering provider: J Carlos Lopez DO History: 38 years Female with . picc line placement . Comparison: November 23, 2023 FINDINGS: Left PICC line with the tip overlying the superior vena cava. MEDIASTINUM: The cardiac silhouette is not enlarged. LUNGS: No infiltrates, effusions or pneumothorax. OTHER: No free air under the diaphragm. IMPRESSION: No acute cardiopulmonary pathology. Reviewed, dictated and finalized at location A.
[2024-04-05 21:54] VITALS: BP 92/66; PULSE 80; RESP 15; TEMP 36.5; O2SAT 100
[2024-04-05 22:26] LABS: Basophils Percent Auto 0.4 % (0.2-1.2); Eosinophils Absolute Auto 0.1 K/mm3 (0-0.3); Eosinophils Percent Auto 1.2 % (0-4.4); Hematocrit 27.7 % (37.0-47.0); Hemoglobin 8.9 g/dL (12.0-15.0); Immature Granulocyte Absolute 0.01 K/mm3 (0.00-0.031); Immature Granulocyte Percent A 0.1 % (0-0.5); Lymphocytes Absolute Auto 1.86 K/mm3 (0.9-3.2); Mean Corpuscular HGB Conc 32.1 g/dl (32-36); Mean Corpuscular Hemoglobin 25.7 pg (26-34); Mean Corpuscular Volume 80.1 fl (80-100); Mean Platelet Volume 9.4 fl (7.4-10.4); Monocytes Absolute Auto 0.6 K/mm3 (0.1-0.6); Monocytes Percent Auto 8.7 % (2.6-8.5); Neutrophils Absolute Auto 4.3 K/mm3 (1.3-6.7); Neutrophils Percent Auto 62.6 % (45.5-73.1); Platelet Count Result 300 k/mm3 (150-375); Red Blood Count 3.46 M/mm3 (4.2-5.4); Red Cell Distribution Width 17.8 % (11.5-14.5); White Blood Count 6.9 K/mm3 (4.5-10.0)
[2024-04-05 22:35] LABS: Alanine Aminotransferase 14 U/L (6-35); Albumin Level 4.2 g/dL (3.5-5.1); Alkaline Phosphatase 83 U/L (38-126); Anion Gap 7 mmol/L (4-12); Aspartate Amino Transferase 22 U/L (14-36); Bilirubin,Total 0.3 mg/dL (0.2-1.3); Blood Urea Nitrogen 19 mg/dL (7-17); Carbon Dioxide 23 mmol/L (22-30); Chloride 104 mmol/L (98-107); Estimated Glomerular Filt Rate 51; Glucose 330 mg/dL (65-110); Potassium 4.3 mmol/L (3.4-5.0); Sodium 134 mmol/L (137-145)
[2024-04-05 23:36] LABS: Lactic Acid Reflex 0.6 mmol/L (0.7-2.0)
[2024-04-05 23:50] LABS: Hemoglobin A1C 13.4 % (<5.7)
[2024-04-05 23:53] LABS: CRP < 0.5 mg/dL (<1.0)
[2024-04-06] VITALS (9 sets, daily range): BP systolic 88–138; BP diastolic 60–82; PULSE 70–88; RESP 14–18; TEMP 36.3–36.6; O2SAT 98–100; BMI 23.2
--- NOTE | 2024-04-06 00:01 | ED.LOWEXIN ---
HPI - Extremity Injury (Lower) General Chief Complaint: Extremity Injury, Lower <Lin Hanks PA-C - Last Filed: 04/06/24 19:02> Stated Complaint: toe pain-fall <ANTOLIN Gooden Last Filed: 04/06/24 19:02> Time Seen by Provider: 04/05/24 22:53 <ANTOLIN Gooden Last Filed: 04/06/24 19:02> Source: patient <ANTOLIN Gooden Last Filed: 04/06/24 19:02> Mode of arrival: EMS <ANTOLIN Gooden Last Filed: 04/06/24 19:02> Limitations: no limitations <ANTOLIN Gooden Last Filed: 04/06/24 19:02> History of Present Illness HPI Narrative: This is a 38 year old female that presents to the ER for left great toe infection. Reports worsening swelling and pain to the toe. Reports abnormal drainage. Ongoing over the last couple of weeks. Worsening over the last couple of days with swelling to the foot as well. Reports history of DM. She does not take her insulin regularly. She additionally endorses worsening swelling and pain in her right thumb. Reports history of infection in this thumb for which she had surgery in June of last year. This was done at [facility]. Denies fevers. <ANTOLIN Gooden Last Filed: 04/06/24 19:02> Related Data Home Medications: Home Medications Medication Instructions Recorded Confirmed insulin detemir U-100 100 unit/mL 15 unit subcut TID 11/23/23 11/23/23 (3 mL) subcutaneous pen (Levemir FlexPen) <ANTOLIN Gooden Last Filed: 04/06/24 19:02> Allergies/Adverse Reactions: Allergies Allergy/AdvReac Type Severity Reaction Status Date / Time blueberry Allergy Difficulty Verified 04/05/24 22:02 Breathing haloperidol [From Haldol] AdvReac Intermediate tongue Verified 04/05/24 22:02 protrusion quetiapine [From Seroquel] AdvReac Other Verified 04/05/24 22:02 <ANTOLIN Gooden Last Filed: 04/06/24 19:02> Review of Systems Review of Systems: CONSTITUTIONAL: Denies fever SKIN: Reports redness and swelling MUSCULOSKELETAL: Reports joint pain, and myalgia. NEUROLOGIC: Denies numbness <Lin Hanks PA-C - Last Filed: 04/06/24 19:02> All systems reviewed & are unremarkable except as noted in HPI and below <Lin Hanks PA-C - Last Filed: 04/06/24 19:02> [facility] Past Medical History Medical History: Medical History Diabetes Healthy female adult <Lin Hanks PA-C - Last Filed: 04/06/24 19:02> Surgical History Surgical History: Surgical History No pertinent past surgical history <Lin Hanks PA-C - Last Filed: 04/06/24 19:02> Social History Social History: Social History (System 11/28/23 @ 09:02 by Juan Pablo Lagos) Other substance usage details: Marijuana <ANTOLIN Gooden Last Filed: 04/06/24 19:02> Exam Narrative: GENERAL: Well-appearing, well-nourished, and in no acute distress. HEAD: Normocephalic, atraumatic. EYES: EOMI. CHEST: Clear to auscultation. No respiratory distress. No wheezes rales or rhonchi HEART: Regular rate and rhythm. No murmur heard. Normal peripheral pulses. EXTREMITIES: Edema and bruising to the left great toe with 2cm circular ulceration to the distal toe with abnormal drainage. Swelling extending into the foot. Normal DP pulse. Normal sensation. Right thumb with edema, tender to palpation at the MCP and interphalangeal joint. Unable to flex at the interphalangeal joint SKIN: Warm, dry, no rash. NEURO: No focal deficits. Alert and oriented x3. PSYCH: Normal mood and affect <Lin Hanks PA-C - Last Filed: 04/06/24 19:02> Course Course Emergency Course: 0646: Patient found to be on bedside test. Patient informed of results. She is very distraught. LMP was 2 months ago. She reports that she has had a tubal ligation that she does not want the . We are bowen
[2024-04-06] MEDS: CEFEPIME 2 GM/NS 50 ML 2 GM/50 ML BAG IVPB (00:20)
[2024-04-06] MEDS: ACETAMINOPHEN 500 MG TABLET 1000 MG PO (00:20)
[2024-04-06] MEDS: oxyCODONE HCL (*CRX) 5 MG TAB IR PO (00:20)
[2024-04-06 00:21] LABS: Erythrocyte Sedimentation Rate 88 mm/hr (0-20)
[2024-04-06] MEDS: metroNIDAZOLE 500 MG/ISO 100ML 500 MG/100 ML BAG 100 MG IVPB ×3 (01:04→18:34)
[2024-04-06] MEDS: VANCOMYCIN 1,250 MG/NS 250 ML 1,250 MG/250 ML BAG 166.67 MG IVPB (02:07)
[2024-04-06] MEDS: SODIUM CHLORIDE 0.9% IV 1,000 ML 999 ML IV CONT (04:18)
[2024-04-06] MEDS: SODIUM CHLORIDE 0.9% IV 500 ML 999 ML IV CONT (04:19)
[2024-04-06] MEDS: HYDROcodone/acetaminophen (*CRX) 5-325 MG TABLET 1 TAB PO ×3 (04:20→22:26)
--- NOTE | 2024-04-06 07:43 | PC.NURSE ---
Assumed care of pt. Pt went to Ultrasound, tech returns with pt stating will not get off cell phone phone to complete exam. Tech states she requested pt end call, pt stated I paid for this call I'm not hanging up Pt remains on the phone in room. Will not allow RN to exam right foot.
[2024-04-06 08:50] LABS: Glucose Point of Care 318 mg/dl (65-105)
--- NOTE | 2024-04-06 08:50 | PC.NURSE ---
Dr. Payton informed blood glucose 316. Orders received. Breakfast tray ordered
--- NOTE | 2024-04-06 08:54 | PC.NURSE ---
RN verified with pharmacist John all antibiotics are safe to use during .
[2024-04-06] MEDS: INSULIN HUMAN REGULAR (*BKC) 100 UNITS/ML 7 UNITS IV PUSH (08:59)
[2024-04-06 10:51] LABS: Glucose Point of Care 123 mg/dl (65-105)
[2024-04-06] MEDS: CEFEPIME 1 GM/NS 50 ML 1 GM/50 ML BAG IVPB ×2 (12:20→23:55)
[2024-04-06] MEDS: ONDANSETRON INJ 4 MG/2 ML VIAL IV PUSH (18:35)
[2024-04-06] MEDS: ACETAMINOPHEN 325 MG TABLET 650 MG PO (18:35)
[2024-04-06 18:44] LABS: Glucose Point of Care 300 mg/dl (65-105)
[2024-04-06 20:48] LABS: Glucose Point of Care 281 mg/dl (65-105)
[2024-04-06] MEDS: INSULIN ASPART (*BKC) 100 UNITS/ML SUB-Q (21:39)
--- NOTE | 2024-04-07 | ECHO_ITS ---
Patient Info Name: Srinivas Barakat Age: 38 years : 1985 Gender: Female Ht: 60 in Wt: 119 lbs BSA: 1.52 m2 HR: 79 bpm BP: 107 / 66 mmHg Technical Quality: Good Exam Date: 04/07/2024 10:56 AM Exam Location: Echo Lab Patient Status: Inpatient Admit Date: 04/06/2024 Staff Ordering Physician: Alexsandra Gambino APRN Double End Tenoner Setter: Ronak Hinson RDCS Attending Provider: Alexsandra Gambino APRN Referring Physician: Maki CARLSON; Exam Type: CA echo doppler color flow Study Info Indications - septic arthritis Complete two-dimensional, color flow and Doppler transthoracic echocardiogram is performed. Summary 1. Complete two-dimensional, color flow and Doppler transthoracic echocardiogram is performed. 2. Left ventricular chamber dimension is normal. 3. Left ventricular systolic function is normal, estimated at 60-65%. 4. There is mild concentric increased left ventricular wall thickness. 5. The left ventricular diastolic function is normal. 6. E/e' 6 is not elevated. 7. Left atrial chamber dimension is mildly enlarged. 8. There is trace mitral valve regurgitation. 9. There is trace tricuspid valve regurgitation. 10. No pulmonary hypertension, estimated pulmonary arterial systolic pressure is 34 mmHg. 11. There is trace pulmonic regurgitation. 12. Dilated inferior vena cava with >50% collapse upon inspiration consistent with elevated right atrial pressure, 10 mmHg. Left Ventricle E/e' 6 is not elevated. Left ventricular chamber dimension is normal. Left ventricular systolic function is normal, estimated at 60-65%. There is mild concentric increased left ventricular wall thickness. The left ventricular diastolic function is normal. Right Ventricle Right ventricular systolic function is normal and with normal TAPSE 2.0 cm. Right ventricular chamber dimension is normal. Left Atria Left atrial chamber dimension is mildly enlarged. Right Atria Right atrial chamber dimension is normal. Aortic Valve The aortic valve is trileaflet. There is no aortic valve stenosis. There is no aortic valve regurgitation. Pulmonic Valve There is trace pulmonic regurgitation. Mitral Valve There is no mitral valve stenosis. There is trace mitral valve regurgitation. Tricuspid Valve There is trace tricuspid valve regurgitation. No pulmonary hypertension, estimated pulmonary arterial systolic pressure is 34 mmHg. Pericardium/Pleural There is no pericardial effusion. Inferior Vena Cava Dilated inferior vena cava with >50% collapse upon inspiration consistent with elevated right atrial pressure, 10 mmHg. Aorta The aortic root size at the sinus of Valsalva is normal. Left Ventricular Outflow Tract Name Value Normal LVOT 2D LVOT Diameter 1.8 cm LVOT Doppler LVOT Peak Gradient 8 mmHg LVOT Mean Gradient 4 mmHg LVOT VTI 25 cm LVOT VTI/AV VTI Ratio 0.8 LVOT Stroke Volume 67 ml LVOT CO 5.1 l/min LVOT CI 3.4 l/min/m2 Pulmonic Valve
[2024-04-07] MEDS: metroNIDAZOLE 500 MG/ISO 100ML 500 MG/100 ML BAG 100 MG IVPB ×3 (00:34→17:21)
[2024-04-07] MEDS: ONDANSETRON INJ 4 MG/2 ML VIAL IV PUSH (02:34)
[2024-04-07 05:27] LABS: Glucose Point of Care 281 mg/dl (65-105)
[2024-04-07 05:32] VITALS: BP 107/66; PULSE 79; RESP 14; TEMP 36.2; O2SAT 100
--- NOTE | 2024-04-07 07:05 | PM.IMHP ---
H&P: HPI History of Present Illness Date/Time: 04/07/24 07:05 Chief Complaint: This is a 38-year-old female with a past medical history significant for type 1 diabetes with documented noncompliance. She reported to the emergency room with complaints of pain and color changes to her left greater toe. She provides the following history. On 03/31 as she was out drinking with her friends and dancing on table when she fell off and suffered a cut to her left great toe. She states she has been soaking it at home and putting antibacterial ointment on it. Over the last few days she has been having fever and shows and throbbing pain to her left toe. Last night she took the dressing off and noticed it looked black and she was concerned so she came to the emergency room. She also reports having dizziness, nausea, and vomiting. She did just find other that she is possibly . She states she had a missed menstrual cycle and has been having symptoms of early . She took a home test which was positive. She was concerned this might of been a tubal as she has had tubal ligation after her last . In regards to her right thumb, she states she had a similar infection about 1 year ago requiring surgery and IV antibiotics at [facility]. About 1 month ago her thumb started to have swelling and she no longer is able to bend it. There is tenderness with manipulation. When asked about her insulin regimen she states she takes Levemir but she is unsure of the dose. She states that she knowingly does not manage her diabetes as well as she should citing that she is very busy with work and frequently forgets to take her insulin prior to leaving. In the ER labs were significant for white blood cells 6.9, hemoglobin 8.9, MCH 25.7, ESR 88, sodium 134, potassium 4.3, BUN 19, creatinine 1.4, and glucose 330. Beta hCG was positive and ultrasound was completed without intrauterine gestational sac present. Repeat hCG will be completed today. X-ray of her right hand shows erosions at 1st interphalangeal l joint consistent with septic arthritis, left foot x-ray shows erosions of 1st distal phalanx consistent with osteomyelitis. She was started on cefepime, vancomycin, and Flagyl IV. Blood cultures were drawn as well as wound culture. Lactic acid was normal. The ER discussed her case with [facility] who has accepted her for transfer for her septic joint pending bed availability. In the interim she was admitted to the hospitalist service for IV antibiotics and general surgery consult. Review of Systems Review of Systems: All systems reviewed & are unremarkable except as noted in HPI and below PMFSH Past Medical History Medical History Diabetes Healthy female adult Osteomyelitis Surgical History Surgical History Hx of hand surgery Right thumb reconstruction after osteomyelitis Social History Social History (Updated 04/07/24 @ 16:16 by Alexsandra Gambino APRN) Social History: Patient has 3 children. Her 2 boys were delivered via . Her daughter was vaginal delivery. Her boys live with their father. Her daughter lives with her. Her and her daughter stay at her boyfriend's brother's house. She states she is safe and has no concerns for abuse. She works 14 hour days at [employer]. She designates Spencer Barakat (cousin) as her healthcare proxy. Smoking status: Former smoker Tobacco type: cigarettes Second hand tobacco smoke exposure: Yes Alcohol intake: current Drinks per week: 1 Alcohol use details: Social drinker Substance use: current Substance use type: marijuana Other substance usage details: Marijuana, no history of IV drug use Last use: 05 april 2024 Do You Feel Safe in your Home?: Yes Lack of Transportation: No Lack of Food: Never True Current Housing: [facility] Have [facility]
[2024-04-07 07:49] LABS: Glucose Point of Care 240 mg/dl (65-105)
[2024-04-07 08:14] LABS: Basophils Percent Auto 0.4 % (0.2-1.2); Cholesterol 159 mg/dL (0-200); Eosinophils Absolute Auto 0.1 K/mm3 (0-0.3); HDL Direct 45 mg/dL; Hematocrit 28.6 % (37.0-47.0); Hemoglobin 8.8 g/dL (12.0-15.0); Lymphocytes Absolute Auto 1.61 K/mm3 (0.9-3.2); Lymphocytes Percent Auto 32.7 % (18.3-44.2); Mean Corpuscular HGB Conc 30.8 g/dl (32-36); Mean Corpuscular Hemoglobin 25.1 pg (26-34); Mean Corpuscular Volume 81.7 fl (80-100); Mean Platelet Volume 9.9 fl (7.4-10.4); Monocytes Absolute Auto 0.5 K/mm3 (0.1-0.6); Monocytes Percent Auto 9.8 % (2.6-8.5); Neutrophils Absolute Auto 2.7 K/mm3 (1.3-6.7); Neutrophils Percent Auto 55.1 % (45.5-73.1); Platelet Count Result 279 k/mm3 (150-375); Red Cell Distribution Width 17.7 % (11.5-14.5); Triglycerides 92 mg/dL (<150); White Blood Count 4.9 K/mm3 (4.5-10.0)
[2024-04-07] MEDS: INSULIN ASPART (*BKC) 100 UNITS/ML SUB-Q ×5 (08:18→17:48)
[2024-04-07] MEDS: HYDROcodone/acetaminophen (*CRX) 5-325 MG TABLET 1 TAB PO ×2 (08:19→18:34)
[2024-04-07] MEDS: DOCUSATE SODIUM 100 MG CAPSULE PO ×2 (08:20→20:48)
[2024-04-07 08:21] LABS: Alanine Aminotransferase 25 U/L (6-35); Albumin Level 3.8 g/dL (3.5-5.1); Alkaline Phosphatase 86 U/L (38-126); Anion Gap 8 mmol/L (4-12); Aspartate Amino Transferase 45 U/L (14-36); Bilirubin,Total 0.3 mg/dL (0.2-1.3); Blood Urea Nitrogen 15 mg/dL (7-17); Calcium 8.9 mg/dL (8.4-10.2); Carbon Dioxide 20 mmol/L (22-30); Chloride 108 mmol/L (98-107); Estimated CRCL calculation 54 ml/min; Estimated Glomerular Filt Rate > 60; Glucose 242 mg/dL (65-110); Magnesium 2.2 mg/dL (1.6-2.3); Potassium 4.2 mmol/L (3.4-5.0); Sodium 136 mmol/L (137-145)
[2024-04-07 08:24] LABS: LDL Cholesterol Direct 87 mg/dL
[2024-04-07 08:33] LABS: CRP < 0.5 mg/dL (<1.0)
[2024-04-07 08:47] VITALS: O2SAT 96
[2024-04-07] MEDS: VANCOMYCIN 1,000 MG/NS 250 ML 1,000 MG/250 ML BAG 250 MG IVPB (11:21)
[2024-04-07] MEDS: CEFEPIME 1 GM/NS 50 ML 1 GM/50 ML BAG IVPB ×2 (11:26→23:43)
[2024-04-07 11:53] LABS: Glucose Point of Care 211 mg/dl (65-105)
--- NOTE | 2024-04-07 12:37 | PM.CNGS ---
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 She has been placed on broad-spectrum IV antibiotics per diabetic foot wound protocol. Continue strict blood glucose management and topical care with silver gel daily gauze dressing changes. This will likely need incision and drainage and possible debridement. I discussed with patient that distal toe amputation might be necessary, but patient is currently refusing amputation. Will continue to follow. History of Present Illness Consult details Consult date: 04/07/24 Reason for consult: other (Right great toe wound) Requesting physician: Lin Hanks PA-C Narrative: This is a 38-year-old woman who I am asked to see for a foot wound. The patient states that she has had a wound on her right great toe for about 2-3 weeks. She had fallen and hit her toe which caused her toenail to split and she then subsequently developed a wound. She has been treating this on her own at home using soaks and topical ointment. She states that she has not noticed any progression to her forefoot or up her ankle. She denies any fevers or chills. The swelling was not improving. She also has a history of a right hand wound that was treated about 1 year ago. This required surgery but she states this has been improving. A hand surgeon was contacted from the emergency department and she is on the waiting list to be transferred to [place]. The hand issues appear more chronic and do not appear to be the current infection problem. The patient is diabetic. She is poorly controlled with a hemoglobin A1c of 13.4%. Patient states that she does want to have an amputation of her toe and would rather try medical treatment or surgical debridement. Review of Systems Review of Systems: All systems reviewed & are unremarkable except as noted in HPI and below Constitutional: Constitutional: Denies chills and Denies fever(s) Eyes: Eyes: Denies change in vision ENT: Denies hearing loss, Denies neck pain and Denies sore throat Cardiovascular: Cardiovascular: Denies chest pain and Denies dyspnea Respiratory: Respiratory: Denies cough, Denies dyspnea and Denies wheezing Genitourinary: Genitourinary: Denies hematuria and Denies dysuria Musculoskeletal: Musculoskeletal: Denies arthralgias, Denies joint swelling and Denies neck pain Allergic/Immunologic: Allergic/Immunologic: Denies wheezing [facility] Past Medical History Medical History (Updated 04/07/24 @ 12:47 by J Carlos Lopez DO) Diabetes Healthy female adult Surgical History Surgical History (Updated 04/07/24 @ 12:44 by J Carlos Lopez DO) Hx of hand surgery Social History Social History Smoking status: Former smoker Tobacco type: cigarettes Second hand tobacco smoke exposure: Yes Alcohol intake: current Drinks per week: 1 Substance use: current Substance use type: marijuana Other substance usage details: Marijuana Last use: 05 april 2024 Do You Feel Safe in your Home?: Yes Lack of Transportation: No Lack of Food: Never True Current Housing: I Have Housing Concerned About Future Housing: YES Difficulty Paying Gas/Electric Bills: YES Difficulty Paying for Meds: YES Currently Unemployed: No Education
[2024-04-07 14:00] VITALS: BP 117/74; PULSE 88; RESP 20; TEMP 36.6; O2SAT 100
[2024-04-07 17:12] LABS: Glucose Point of Care 242 mg/dl (65-105)
[2024-04-07 20:00] VITALS: PULSE 88; RESP 20; O2SAT 100
[2024-04-07 20:31] LABS: Glucose Point of Care 113 mg/dl (65-105)
[2024-04-07] MEDS: INSULIN GLARGINE (*BKC) 100 UNITS/ML 8 UNITS SUB-Q (20:49)
[2024-04-07 21:01] VITALS: BP 103/71; PULSE 91; RESP 16; TEMP 36.7; O2SAT 100
[2024-04-07] MEDS: ACETAMINOPHEN 325 MG TABLET 650 MG PO (23:54)
[2024-04-08] MEDS: metroNIDAZOLE 500 MG/ISO 100ML 500 MG/100 ML BAG 100 MG IVPB ×3 (00:17→16:41)
[2024-04-08 05:10] VITALS: BP 102/69; PULSE 76; RESP 16; TEMP 36.9; O2SAT 100
[2024-04-08 07:52] LABS: Glucose Point of Care 257 mg/dl (65-105)
--- NOTE | 2024-04-08 07:54 | P.PNIM_ITS ---
Progress Note: A&P Assessment and Plan (1) Osteomyelitis: Qualifiers: Laterality: left Osteomyelitis location: foot Osteomyelitis type: unspecified type Qualified Code(s): M86.9 - Osteomyelitis, unspecified Code(s): M86.9 - Osteomyelitis, unspecified Status: Acute Assessment and Plan: Left foot x-ray shows concerns or erosion of 1st distal phalanx consistent with osteomyelitis. * Patient was started on broad-spectrum therapy with cefepime, Flagyl, vancomycin * WBC 6.9 on presentation, afebrile, lactic negative * Wound culture preliminarily is growing Gram-negative bacilli and Gram-positive cocci * Blood cultures with no growth to date * General surgery was consulted while she remains at [place]. Recs are appreciated (2) Septic arthritis: Code(s): M00.9 - Pyogenic arthritis, unspecified Status: Acute Assessment and Plan: X-ray imaging of the right hand shows erosions at 1st interphalangeal joint consistent with septic arthritis * Patient is on vancomycin, cefepime, Flagyl * Echocardiogram ordered * Blood cultures with no growth to date * While her thumb is edematous it does not have erythema (3) Diabetes mellitus: Qualifiers: Diabetes mellitus complication detail: with foot ulcer Diabetes mellitus complication status: with skin complications Diabetes mellitus superintendent terminal insulin use: with superintendent terminal use Diabetes mellitus type: due to underlying condition Qualified Code(s): E08.621 - Diabetes mellitus due to underlying condition with foot ulcer; L97.509 - Non-pressure chronic ulcer of other part of unspecified foot with unspecified severity; Z79.4 - group home (current) use of insulin Code(s): E11.9 - Type 2 diabetes mellitus without complications Status: Acute Assessment and Plan: Uncontrolled type 1 diabetic. Hemoglobin A1c 13.4% on admission * Patient was started on basal bolus insulin with NovoLog 3 units t.i.d. with meals and moderate sliding scale. * Also added on Lantus 12 units HS * A.c. HS Accu-Cheks, hypoglycemia protocol ordered, diabetic diet * Patient requires tight glucose control given multiple infections however given her possible will need close monitoring of blood sugars to prevent hypoglycemia episodes. (4) Positive test: Code(s): Z32.01 - Encounter for test, result positive Status: Acute Assessment and Plan: Beta hCG was positive on admission 4068. * ultrasound does not show gestational sac * Will repeat beta hCG today--Repeat was 3241 * Case was discussed with Dr Torres, OB-BLENDING TANK HELPER who reviewed pelvic ultrasound images. She will see the patient in the morning and discuss options but most likely will need a laparoscopic lateral salpingectomy with D&C. This might be able to be coordinated with general surgery for I&D vs debridement of her left greater toe. * Should patient develop abdominal pain Dr Torres will need to be notified immediately for surgical intervention (5) Ectopic , tubal: Code(s): O00.109 - Unspecified tubal without intrauterine Status: Acute Assessment and Plan: See above Plan Feeding: Diabetic diet Analgesia: Tylenol and [place] Thromboembolic prophylaxis: SCDs Glycemic control: Basal bolus Novolog, Lantus Bowel regimen: MiraLax and Colace Lines: PIV Antibiotics: Cefepime Vanc Flagyl Disposition: Patient presented after a fall was having pain to her right hand and left foot. Imaging was obtained and is concerning for left foot osteomyelitis and right hand septic joint. She w
--- NOTE | 2024-04-08 07:54 | PM.IMPN ---
Progress Note: A&P Assessment and Plan (1) Osteomyelitis: Qualifiers: Laterality: left Osteomyelitis location: foot Osteomyelitis type: unspecified type Qualified Code(s): M86.9 - Osteomyelitis, unspecified Code(s): M86.9 - Osteomyelitis, unspecified Status: Acute Assessment and Plan: Left foot x-ray shows concerns or erosion of 1st distal phalanx consistent with osteomyelitis. Patient was started on broad-spectrum therapy with cefepime, Flagyl, vancomycin WBC 6.9 on presentation, afebrile, lactic negative Wound culture preliminarily is growing Gram-negative bacilli and Gram-positive cocci Blood cultures with no growth to date General surgery was consulted while she remains at [facility]. Recs are appreciated (2) Septic arthritis: Code(s): M00.9 - Pyogenic arthritis, unspecified Status: Acute Assessment and Plan: X-ray imaging of the right hand shows erosions at 1st interphalangeal joint consistent with septic arthritis Patient is on vancomycin, cefepime, Flagyl Echocardiogram ordered Blood cultures with no growth to date While her thumb is edematous it does not have erythema (3) Diabetes mellitus: Qualifiers: Diabetes mellitus complication detail: with foot ulcer Diabetes mellitus complication status: with skin complications Diabetes mellitus long chain quiller tender insulin use: with long chain quiller tender use Diabetes mellitus type: due to underlying condition Qualified Code(s): E08.621 - Diabetes mellitus due to underlying condition with foot ulcer; L97.509 - Non-pressure chronic ulcer of other part of unspecified foot with unspecified severity; Z79.4 - long-term (current) use of insulin Code(s): E11.9 - Type 2 diabetes mellitus without complications Status: Acute Assessment and Plan: Uncontrolled type 1 diabetic. Hemoglobin A1c 13.4% on admission Patient was started on basal bolus insulin with NovoLog 3 units t.i.d. with meals and moderate sliding scale. Also added on Lantus 12 units HS A.c. HS Accu-Cheks, hypoglycemia protocol ordered, diabetic diet Patient requires tight glucose control given multiple infections however given her possible will need close monitoring of blood sugars to prevent hypoglycemia episodes. (4) Positive test: Code(s): Z32.01 - Encounter for test, result positive Status: Acute Assessment and Plan: Beta hCG was positive on admission 2818. ultrasound does not show gestational sac Will repeat beta hCG today--Repeat was 3241 Case was discussed with Dr Torres, OB-CREDIT CARD ANALYST who reviewed pelvic ultrasound images. She will see the patient in the morning and discuss options but most likely will need a laparoscopic lateral salpingectomy with D&C. This might be able to be coordinated with general surgery for I&D vs debridement of her left greater toe. Should patient develop abdominal pain Dr Torres will need to be notified immediately for surgical intervention (5) Ectopic , tubal: Code(s): O00.109 - Unspecified tubal without intrauterine Status: Acute Assessment and Plan: See above Plan Feeding: Diabetic diet Analgesia: Tylenol and [place] Thromboembolic prophylaxis: SCDs Glycemic control: Basal bolus Novolog, Lantus Bowel regimen: MiraLax and Colace Lines: PIV Antibiotics: Cefepime Vanc Flagyl Disposition: Patient presented after a fall was having pain to her right hand and left foot. Imaging was obtained and is concerning for left foot osteomyelitis and right hand septic joint. She was started on broad-spectrum antibiotics. Emergency room consulted with [facility] who has accepted her for admission for her septic joint. She is awaiting bed placement. In the interim she was admitted to the medical floor with a General surgery consult. She is a type 1 diabetic with uncontrolled diabetes. Efforts will be made to obtain better glucose control
[2024-04-08] MEDS: HYDROcodone/acetaminophen (*CRX) 5-325 MG TABLET 1 TAB PO (08:03)
[2024-04-08] MEDS: polyethylene glycoL 3350 17 GM POWD.PACK PO (08:04)
[2024-04-08] MEDS: DOCUSATE SODIUM 100 MG CAPSULE PO (08:04)
[2024-04-08] MEDS: INSULIN ASPART (*BKC) 100 UNITS/ML SUB-Q ×5 (08:05→16:38)
[2024-04-08 08:08] LABS: Basophils Percent Auto 0.4 % (0.2-1.2); Eosinophils Absolute Auto 0.1 K/mm3 (0-0.3); Eosinophils Percent Auto 1.8 % (0-4.4); Hematocrit 31.1 % (37.0-47.0); Hemoglobin 9.9 g/dL (12.0-15.0); Immature Granulocyte Absolute 0.01 K/mm3 (0.00-0.031); Immature Granulocyte Percent A 0.2 % (0-0.5); Lymphocytes Absolute Auto 1.54 K/mm3 (0.9-3.2); Lymphocytes Percent Auto 30.5 % (18.3-44.2); Mean Corpuscular HGB Conc 31.8 g/dl (32-36); Mean Corpuscular Hemoglobin 25.4 pg (26-34); Mean Corpuscular Volume 79.9 fl (80-100); Mean Platelet Volume 9.3 fl (7.4-10.4); Monocytes Absolute Auto 0.4 K/mm3 (0.1-0.6); Monocytes Percent Auto 7.5 % (2.6-8.5); Neutrophils Percent Auto 59.6 % (45.5-73.1); Platelet Count Result 315 k/mm3 (150-375); Red Blood Count 3.89 M/mm3 (4.2-5.4); White Blood Count 5.1 K/mm3 (4.5-10.0)
[2024-04-08 08:19] LABS: Alanine Aminotransferase 21 U/L (6-35); Albumin Level 4.2 g/dL (3.5-5.1); Alkaline Phosphatase 83 U/L (38-126); Anion Gap 9 mmol/L (4-12); Aspartate Amino Transferase 23 U/L (14-36); Bilirubin,Total 0.3 mg/dL (0.2-1.3); Blood Urea Nitrogen 15 mg/dL (7-17); Calcium 9.1 mg/dL (8.4-10.2); Carbon Dioxide 22 mmol/L (22-30); Chloride 105 mmol/L (98-107); Estimated CRCL calculation 54 ml/min; Estimated Glomerular Filt Rate > 60; Glucose 234 mg/dL (65-110); Magnesium 2.2 mg/dL (1.6-2.3); Potassium 4.5 mmol/L (3.4-5.0); Sodium 136 mmol/L (137-145)
[2024-04-08 08:24] LABS: INR 0.9; Prothrombin Time 12.3 Seconds (11.1-14.7)
[2024-04-08 08:25] LABS: Partial Thromboplastin Time 24.4 Seconds (22.3-36.8)
--- NOTE | 2024-04-08 08:30 | WPDCN ---
Assessment and Plan Assessment and plan (1) of unknown anatomic location: Code(s): O36.80X0 - with inconclusive viability, not applicable or unspecified Status: Acute Assessment and Plan: - suspecting left tubal stump though (2) History of tubal ligation: Code(s): Z98.51 - Tubal ligation status Status: Acute Plan - Pt without any abdominal/pelvic pain, benign abdominal exam - Due to h/o tubal ligation and review of transabdominal US; high suspicion for tubal (possibly left) - Transvaginal US ordered for today (pt declined vaginal US previously) - Beta HCG's are not rising appropriately; so either way, this is not a viable - Repeat HCG for 04/09/24, to verify this is continuing to increase - Treatment of ectopic include methotrexate or surgery -- would not recommend methotrexate in this situation as she actively has an infection, mildly elevated liver enzymes and has multiple uncontrolled health issues, (MTX administration requires multiple f/u labs and monitoring) -- would recommend proceeding with full bilateral laparoscopic salpingectomy with D&C; risks and benefits discussed in detail Will discuss with general surgery and try to coordinate combined case (if possible) within the next couple days as she is clinically stable currently -- Once scheduled, pt to will to be NPO after midnight - Nursing staff to call sole conforming machine operator PHYSIOLOGIST member if patient acutely develops severe abdominal pain (concern for rupture) HPI Data of Consult Date/Time: 04/08/24 08:30 Requesting Physician: Alexsandra Gambino APRN Primary Care Provider: UNKNOWN,DOCTOR Consult Narrative Reason for consult: + beta HCG, h/o tubal Narrative: Srinivas is a 38 yo , LMP 02/15/24 who is admitted with osteomyelitis of her right great toe due to uncontrolled T1DM (A1c of 13.4). She has a h/o tubal ligation with her last . She reports her cycle was late and she did take an at home test that was positive. She reports this has possibly happened in the past, but then started having vaginal bleeding and her test was negative; so she didn't think this one would stick either. Beta here was 2818 (04/05) and 48 hour later increased to 3241 (04/07). Transabdominal PHYSIOLOGIST US was performed and does not show GS; possible left adnexal mass with ring of fire is noted on review of images. She denies any pelvic pain or vaginal bleeding. She is currently on IV antibiotics for her osteomyelitis with possible plans of debridement in the OR (does not appear to be scheduled yet); but also waiting to transfer to [place] for management as she does not want amputation of her toe; only debridement. Review of Systems Constitutional: Constitutional: Denies chills, Denies fever(s) and Reports poor appetite Cardiovascular: Cardiovascular: Denies chest pain Respiratory: Respiratory: Denies cough and Denies dyspnea Gastrointestinal: Gastrointestinal: Denies abdominal pain and Denies change in bowel habits Genitourinary: Genitourinary: Denies abnormal vaginal bleeding, Denies pelvic pain, Denies vaginal discharge and Denies vaginal odor Musculoskeletal: Musculoskeletal: Reports back pain (when laying in bed) Neurologic: Denies dizziness and Denies headache(s) Endocrine: Endocrine: Reports polyuria PMFSH Past Medical History Medical History Diabetes Healthy female adult Osteomyelitis Surgical History Surgical History Hx of hand surgery Right thumb reconstruction after osteomyelitis Social History Social History (Updated 04/07/24 @ 16:16 by Alexsandra Gambino APRN) Social History: Patient has 3 children. Her 2 boys were delivered via . Her daughter was vaginal delivery. Her boys live with their father. Her daughter lives
[2024-04-08 08:40] LABS: Vancomycin Trough 5.8 ug/mL (10.0-20.0)
[2024-04-08 09:19] LABS: Iron 120 ug/dL (37-170)
[2024-04-08 09:29] LABS: Percent Iron Saturation 38 % (20-50)
[2024-04-08] MEDS: VANCOMYCIN 1,000 MG/NS 250 ML 1,000 MG/250 ML BAG 250 MG IVPB ×2 (10:10→20:35)
[2024-04-08 10:31] LABS: Folic Acid 5.1 ng/mL (2.76->20)
[2024-04-08 11:53] LABS: Glucose Point of Care 231 mg/dl (65-105)
[2024-04-08] MEDS: CEFEPIME 1 GM/NS 50 ML 1 GM/50 ML BAG IVPB (12:28)
[2024-04-08 13:47] VITALS: BP 149/84; PULSE 86; RESP 14; TEMP 36.4; O2SAT 100
[2024-04-08 16:36] LABS: Glucose Point of Care 193 mg/dl (65-105)
--- NOTE | 2024-04-08 18:19 | PM.PNGS ---
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 Will have to consider incision and drainage. This could also ultimately require amputation of the distal phalanx of the great toe. Patient is refusing amputation at this time. Will discuss again tomorrow and decide on incision and drainage or distal amputation. (2) Positive test: Code(s): Z32.01 - Encounter for test, result positive Status: Acute Assessment and Plan: Tubal suspected. Dr. Torres discussing proceeding with laparoscopic salpingectomy. Will try to coordinate surgeries tomorrow. Subjective Subjective Date/Time Seen: 04/08/24 18:19 Interval history: Still having some swelling and tenderness to left great toe. No significant drainage. Exam Extrem: Other: Left great toe diabetic foot wound with edema and induration of the plantar and medial surface. 1 cm x 1 cm superficial wound the tip of the lateral toe. No expressible purulence fluid. No signs of gangrene or ischemia. Objective Data Vital Signs Vital Signs: Vital Signs - 24 hr 04/07/24 20:00 04/07/24 21:01 04/08/24 05:10 Temperature 36.7 C 36.9 C Pulse Rate 88 91 76 Respiratory Rate 20 16 16 Blood Pressure 103/71 102/69 Pulse Oximetry 100 100 100 Oxygen Delivery Room Air Fraction of Inspired Oxygen 21 04/08/24 08:00 04/08/24 13:47 Temperature 36.4 C Pulse Rate 86 Respiratory Rate 14 Blood Pressure 149/84 H Pulse Oximetry 100 Oxygen Delivery Room Air Fraction of Inspired Oxygen Intake/Output Intake/Output: Intake & Output 04/05/24 04/06/24 04/07/24 04/08/24 23:59 23:59 23:59 23:59 Intake Total 2150 1750 900 Balance 2150 1750 900 Meds/Results Medications: Active Medications Generic Name Dose Route Start Last Admin Trade Name Freq PRN Reason Stop Dose Admin Acetaminophen 650 mg 04/06/24 03:10 04/07/24 23:54 Acetaminophen 325 Mg Tablet PO 650 mg Q4H PRN Administration Mild Pain (1-3) or Fever Hydrocodone Bitart/Acetaminophen 1 tab 04/06/24 03:10 04/08/24 08:03 Hydrocodone/Acetaminophen (*Crx) 5-325 Mg Tablet PO 1 tab Q4H PRN Administration Pain Rated 4-6 Dextrose 12.5 gm 04/07/24 07:27 Dextrose 50% 25 Gm/50 Ml Syringe IV PUSH PRN PRN Hypoglycemia Protocol Docusate Sodium 100 mg 04/07/24 09:00 04/08/24 08:04 Docusate Sodium 100 Mg Capsule PO 100 mg Q12HR DORA Administration Glucagon 1 mg 04/07/24 07:27 Glucagon For Inj 1 Mg Vial IM PRN PRN Hypoglycemia Protocol Glucose 15 gm 04/07/24 07:27 Glucose Oral Gel 15 Gm Of Glucse In 37.5 Gm Tube PO PRN PRN Hypoglycemia Protocol Cefepime HCl 1 gm in 50 mls @ 100 mls/hr 04/06/24 12:00 04/08/24 12:58 Maxipime 1 Gm/Ns 50 Ml IVPB Infused Q12H DORA Infusion Metronidazole 500 mg in 100 mls @ 100 mls/hr 04/06/24 09:00 04/08/24 16:41 Flagyl 500 Mg/Iso Soln 100 Ml IVPB 100 mls/hr Q8H DORA Administration Dextrose 1,000 mls @ 100 mls/hr 04/07/24 07:27 Dextrose 5% 1,000 Ml IVPB PRN PRN Hypoglycemia Protocol Vancomycin HCl 1,000 mg in 250 mls @ 250 mls/hr 04/08/24 10:00 04/08/24 11:10 Vancomycin 1,000 Mg/Ns 250 Ml IVPB Infused Q12H DORA Infusion Insulin Aspart 3 - 6 units 04/07/24 08:00 04/08/24 16
--- NOTE | 2024-04-08 18:26 | PC.NURSE ---
pt refusing to sign consent until she can talk to surgeon again tomorrow. consent for surgery and blood on pt chart waiting to be signed
[2024-04-08 19:53] LABS: Chlamydia trachomatis NOT DETECTED (NOT DETECTE); Neisseria gonorrhoeae PCR NOT DETECTED (NOT DETECTE)
[2024-04-08 20:00] VITALS: O2SAT 100
[2024-04-08] MEDS: INSULIN GLARGINE (*BKC) 100 UNITS/ML 12 UNITS SUB-Q (20:35)
[2024-04-08] MEDS: ACETAMINOPHEN 325 MG TABLET 650 MG PO (20:45)
[2024-04-08 21:00] VITALS: BP 152/93; PULSE 101; RESP 16; TEMP 36.2; O2SAT 99
[2024-04-08 22:05] LABS: Glucose Point of Care 188 mg/dl (65-105)
[2024-04-09] VITALS (17 sets, daily range): BP systolic 105–157; BP diastolic 68–98; PULSE 72–100; RESP 13–20; TEMP 36.2–37.4; O2SAT 94–100
[2024-04-09] MEDS: CEFEPIME 1 GM/NS 50 ML 1 GM/50 ML BAG IVPB ×3 (00:30→23:13)
[2024-04-09] MEDS: metroNIDAZOLE 500 MG/ISO 100ML 500 MG/100 ML BAG 100 MG IVPB ×3 (01:00→16:50)
[2024-04-09] MEDS: HYDROcodone/acetaminophen (*CRX) 5-325 MG TABLET 1 TAB PO ×2 (02:00→07:05)
[2024-04-09 05:28] LABS: Basophils Percent Auto 0.4 % (0.2-1.2); Eosinophils Absolute Auto 0.1 K/mm3 (0-0.3); Eosinophils Percent Auto 1.3 % (0-4.4); Hematocrit 27.5 % (37.0-47.0); Hemoglobin 8.8 g/dL (12.0-15.0); Immature Granulocyte Absolute 0.01 K/mm3 (0.00-0.031); Immature Granulocyte Percent A 0.2 % (0-0.5); Lymphocytes Absolute Auto 1.61 K/mm3 (0.9-3.2); Lymphocytes Percent Auto 29.9 % (18.3-44.2); Mean Corpuscular Hemoglobin 25.4 pg (26-34); Mean Corpuscular Volume 79.3 fl (80-100); Mean Platelet Volume 9.4 fl (7.4-10.4); Monocytes Absolute Auto 0.5 K/mm3 (0.1-0.6); Monocytes Percent Auto 9.9 % (2.6-8.5); Neutrophils Absolute Auto 3.1 K/mm3 (1.3-6.7); Neutrophils Percent Auto 58.3 % (45.5-73.1); Platelet Count Result 276 k/mm3 (150-375); Red Blood Count 3.47 M/mm3 (4.2-5.4); White Blood Count 5.4 K/mm3 (4.5-10.0)
[2024-04-09 05:40] LABS: Alanine Aminotransferase 20 U/L (6-35); Albumin Level 3.4 g/dL (3.5-5.1); Alkaline Phosphatase 69 U/L (38-126); Anion Gap 5 mmol/L (4-12); Aspartate Amino Transferase 36 U/L (14-36); Bilirubin,Total 0.3 mg/dL (0.2-1.3); Blood Urea Nitrogen 19 mg/dL (7-17); Calcium 9.2 mg/dL (8.4-10.2); Carbon Dioxide 25 mmol/L (22-30); Chloride 104 mmol/L (98-107); Estimated CRCL calculation 49 ml/min; Estimated Glomerular Filt Rate > 60; Glucose 337 mg/dL (65-110); Magnesium 2.2 mg/dL (1.6-2.3); Potassium 4.6 mmol/L (3.4-5.0); Sodium 134 mmol/L (137-145)
--- NOTE | 2024-04-09 07:16 | PM.GYNPNOP ---
FASHION CONSULTANT - A/P Assessment and plan (1) Ectopic , tubal: Qualifiers: Intrauterine status: without intrauterine Laterality: left Qualified Code(s): O00.102 - Left tubal without intrauterine Code(s): O00.109 - Unspecified tubal without intrauterine Status: Acute (2) History of tubal ligation: Code(s): Z98.51 - Tubal ligation status Status: Acute Plan - TV FASHION CONSULTANT US was performed 04/08/24 and is concerning for left tubal . - Beta continuing to rise inappropriately: 2818 (04/05) --> 3241 (04/07) --> 4208 (04/09) - Not a good candidate for methotrexate, therefore to proceed with surgical intervention to treat ectopic - T&S UTD; Rh positive; no need for rhogam - Pt to remain NPO until surgery; normal diet can resume after surgery - Proceed with bilateral laparoscopic salpingectomy, D&C-- combined case with Dr. Lopez who will debride her right greater toe - Post-op management: pain to be controlled with Percocet PRN, stool softeners BID, anti-emetics PRN Time Spent With Patient Time: Total time spent is greater than 50% in coordination of care (as documented) at patient's floor/unit and/or counseling patient: Time with patient: less than 15 minutes FASHION CONSULTANT- PN:Subj Post-Op Subjective Date/time seen: 04/09/24 07:07 Interval history: No issues overnight. TV FASHION CONSULTANT US was performed 04/08/24 and is concerning for left tubal . NPO for surgery today. No vaginal bleeding or pelvic pain. No fevers, chills. Using restroom without issues. Review of Systems Constitutional: Constitutional: Denies chills and Denies fever(s) Cardiovascular: Cardiovascular: Denies chest pain Respiratory: Respiratory: Denies dyspnea Gastrointestinal: Gastrointestinal: Denies abdominal pain and Denies change in stool character Genitourinary: Genitourinary: Denies abnormal vaginal bleeding, Denies dysuria, Denies pelvic pain and Denies vaginal discharge Musculoskeletal: Musculoskeletal: Reports back pain Comments: + toe pain Neurologic: Denies dizziness and Denies headache(s) Exam Const: General: cooperative, healthy appearing, comfortable and no acute distress Resp: Effort & Inspection: normal respiratory effort Auscultation: clear to auscultation bilaterally Cardio: Rate: regular rate GI: GI Palp: No abdominal tenderness, Yes Soft to palpation and No Tenderness to palpation present (GI) : Other: deferred to OR Neuro: General: patient oriented x3 Psych: Appearance: grossly normal FASHION CONSULTANT - PN: Obj Data Vital Signs Vital Signs: Vital Signs - 24 hr 04/07/24 21:01 04/08/24 05:10 04/08/24 08:00 Temperature 98.1 F 98.5 F Pulse Rate 91 76 Respiratory Rate 16 16 Blood Pressure 103/71 102/69 Pulse Oximetry 100 100 Oxygen Delivery Room Air 04/08/24 13:47 Temperature 97.6 F Pulse Rate 86 Respiratory Rate 14 Blood Pressure 149/84 H Pulse Oximetry 100 Oxygen Delivery Intake/Output Intake/Output: Intake & Output 04/05/24 04/06/24 04/07/24 04/08/24 23:59 23:59 23:59 23:59 Intake Total 2150 1750 1240 Output Total 1000 Balance 2150 1750 240 Meds/Results Medications: Active Medications Generic Name Dose Route Start Last Admin Trade Name Freq PRN Reason Stop Dose Admin Acetaminophen 650 mg 04/06/24 03:10 04/08/24 20:45 Acetaminophen 325 Mg Tablet PO 650 mg Q4H PRN Administration Mild Pain (1-3) or Fever Hydrocodone Bitart/Acetaminophen 1 tab 04/06/24 03:10 04/08/24 08:03 Hydrocodone/Acetaminophen (*Crx) 5-325 Mg Tablet PO 1 tab Q4H PRN Administration Pain Rated 4-6 Dextrose 12.5 gm 04/07/24 07:27 Dextrose 50% 25 Gm/50 Ml Syringe IV PUSH PRN PRN Hypoglycemia Protocol Docusate Sodium 100 mg 04/07/24 09:00 04/08/24 20:35 Docusate Sodium 100 Mg Capsule PO 100 mg Q12HR DORA Administration Glucagon 1 mg 04/07/24 07:27
--- NOTE | 2024-04-09 07:17 | WPDHPUPDATE1 ---
History and Physical Update Update Date/Time: 04/09/24 07:17 History and Physical has been reviewed, including an updated exam of the patient. There are NO changes in the patient's condition. Risks, benefits, and alternatives have been discussed and questions answered. Patient agrees to proceed with bilateral laparoscopic salpingectomy with D&C.
--- NOTE | 2024-04-09 07:52 | P.PNIM_ITS ---
Progress Note: A&P Assessment and Plan (1) Ectopic , tubal: Qualifiers: Intrauterine status: without intrauterine Laterality: left Qualified Code(s): O00.102 - Left tubal without intrauterine Code(s): O00.109 - Unspecified tubal without intrauterine Status: Acute Assessment and Plan: Beta hCG was positive on admission 2818. * ultrasound does not show gestational sac * Will repeat beta hCG today--Repeat was 3241 * Case was discussed with Dr Torres, OB-CHRISTIAN MINISTRIES PROFESSOR who reviewed pelvic ultrasound images. She will see the patient in the morning and discuss options but most likely will need a laparoscopic lateral salpingectomy with D&C. This might be able to be coordinated with general surgery for I&D vs debridement of her left greater toe. * Should patient develop abdominal pain Dr Torres will need to be notified immediately for surgical intervention (2) Osteomyelitis: Qualifiers: Laterality: left Osteomyelitis location: foot Osteomyelitis type: unspecified type Qualified Code(s): M86.9 - Osteomyelitis, unspecified Code(s): M86.9 - Osteomyelitis, unspecified Status: Acute Assessment and Plan: Left foot x-ray shows concerns or erosion of 1st distal phalanx consistent with osteomyelitis. * Patient was started on broad-spectrum therapy with cefepime, Flagyl, vancomycin * WBC 6.9 on presentation, afebrile, lactic negative * Wound culture preliminarily is growing Gram-negative bacilli and Gram-positive cocci * Blood cultures with no growth to date * General surgery was consulted while she remains at [place]. Recs are appreciated (3) Septic arthritis: Code(s): M00.9 - Pyogenic arthritis, unspecified Status: Acute Assessment and Plan: X-ray imaging of the right hand shows erosions at 1st interphalangeal joint consistent with septic arthritis, although this appear chronic and not an acute issue. * Patient is on vancomycin, cefepime, Flagyl * Echocardiogram showed normal LV systolic function with an EF estimated at 60- 65%, normal LV diastolic, no concerns for vegetation * Blood cultures with no growth to date * While her thumb is edematous it does not have erythema (4) Diabetes mellitus: Qualifiers: Diabetes mellitus complication detail: with foot ulcer Diabetes mellitus complication status: with skin complications Diabetes mellitus terminal makeup operator insulin use: with assisted use Diabetes mellitus type: due to underlying condition Qualified Code(s): E08.621 - Diabetes mellitus due to underlying condition with foot ulcer; L97.509 - Non-pressure chronic ulcer of other part of unspecified foot with unspecified severity; Z79.4 - technician terminal and repeater (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 Hemoglobin A1c 13.4% on admission * Patient was started on basal bolus insulin. Increasing NovoLog to 5 units t.i.d. with meals and moderate sliding scale. * Increased Lantus to 15 units HS * A.c. HS Accu-Cheks, hypoglycemia protocol ordered, diabetic diet Plan Feeding: Diabetic diet Analgesia: Tylenol and [place] Thromboembolic prophylaxis: SCDs Glycemic control: Basal bolus Novolog, Lantus Bowel regimen: MiraLax and Colace Lines: PIV Antibiotics: Cefepime Vanc Flagyl Disposition: Patient presented after a fall was having pain to her right hand and left foot. Imaging was obtained and is concerning for left foot osteomyeli tis and right hand septic joint (appears chr
--- NOTE | 2024-04-09 07:52 | PM.IMPN ---
Progress Note: A&P Assessment and Plan (1) Ectopic , tubal: Qualifiers: Intrauterine status: without intrauterine Laterality: left Qualified Code(s): O00.102 - Left tubal without intrauterine Code(s): O00.109 - Unspecified tubal without intrauterine Status: Acute Assessment and Plan: Beta hCG was positive on admission 2818. ultrasound does not show gestational sac Will repeat beta hCG today--Repeat was 3241 Case was discussed with Dr Torres, OB-RN CLINICIAN who reviewed pelvic ultrasound images. She will see the patient in the morning and discuss options but most likely will need a laparoscopic lateral salpingectomy with D&C. This might be able to be coordinated with general surgery for I&D vs debridement of her left greater toe. Should patient develop abdominal pain Dr Torres will need to be notified immediately for surgical intervention (2) Osteomyelitis: Qualifiers: Laterality: left Osteomyelitis location: foot Osteomyelitis type: unspecified type Qualified Code(s): M86.9 - Osteomyelitis, unspecified Code(s): M86.9 - Osteomyelitis, unspecified Status: Acute Assessment and Plan: Left foot x-ray shows concerns or erosion of 1st distal phalanx consistent with osteomyelitis. Patient was started on broad-spectrum therapy with cefepime, Flagyl, vancomycin WBC 6.9 on presentation, afebrile, lactic negative Wound culture preliminarily is growing Gram-negative bacilli and Gram-positive cocci Blood cultures with no growth to date General surgery was consulted while she remains at [place]. Recs are appreciated (3) Septic arthritis: Code(s): M00.9 - Pyogenic arthritis, unspecified Status: Acute Assessment and Plan: X-ray imaging of the right hand shows erosions at 1st interphalangeal joint consistent with septic arthritis, although this appear chronic and not an acute issue. Patient is on vancomycin, cefepime, Flagyl Echocardiogram showed normal LV systolic function with an EF estimated at 60-65%, normal LV diastolic, no concerns for vegetation Blood cultures with no growth to date While her thumb is edematous it does not have erythema (4) Diabetes mellitus: Qualifiers: Diabetes mellitus complication detail: with foot ulcer Diabetes mellitus complication status: with skin complications Diabetes mellitus correction insulin use: with continuous churn buttermaker use Diabetes mellitus type: due to underlying condition Qualified Code(s): E08.621 - Diabetes mellitus due to underlying condition with foot ulcer; L97.509 - Non-pressure chronic ulcer of other part of unspecified foot with unspecified severity; Z79.4 - prison (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 Hemoglobin A1c 13.4% on admission Patient was started on basal bolus insulin. Increasing NovoLog to 5 units t.i.d. with meals and moderate sliding scale. Increased Lantus to 15 units HS A.c. HS Accu-Cheks, hypoglycemia protocol ordered, diabetic diet Plan Feeding: Diabetic diet Analgesia: Tylenol and [place] Thromboembolic prophylaxis: SCDs Glycemic control: Basal bolus Novolog, Lantus Bowel regimen: MiraLax and Colace Lines: PIV Antibiotics: Cefepime Vanc Flagyl Disposition: Patient presented after a fall was having pain to her right hand and left foot. Imaging was obtained and is concerning for left foot osteomyelitis and right hand septic joint (appears chronic). She was started on broad-spectrum antibiotics. In the interim she was admitted to the medical floor with a General surgery consult. She is a type 2 diabetic with uncontrolled diabetes. Efforts will be made to obtain better glucose control in setting of infection. Echocardiogram without vegetation. She was found to have concerns for ecto
[2024-04-09 07:57] LABS: Glucose Point of Care 286 mg/dl (65-105)
--- NOTE | 2024-04-09 09:00 | PC.NURSE ---
Lab here to draw blood and pt found to not be in her room. Pt eventually found by hospital security sitting on the bench at the bus stop in front of the hospital. Pt smoking at cigarette stating to security officers that she was to have surgery this morning and is really nervous so she needed to smoke. Refused to return to her room until she has finished smoking.
--- NOTE | 2024-04-09 09:20 | PC.NURSE ---
Pt returned to her room per WC accompanied by hospital staff. No change in status noted. Offers no complaints.
[2024-04-09 10:09] LABS: Vancomycin Trough 10.9 ug/mL (10.0-20.0)
[2024-04-09] MEDS: LACTATED RINGERS 1,000 ML 30 ML IV CONT ×2 (11:20→14:50)
--- NOTE | 2024-04-09 11:50 | WPDANESEPPF ---
Anes - Initial Pre Proc Eval Procedure: Operation Date: 04/09/24 12:30 Proposed Procedures p Incision and Drainage Left Great Toe, - J Carlos Lopez, DO s Laparoscopic Bilateral Salpingectomy - Roslyn Torres MD Date/Time: 04/09/24 11:50 Surgeon: Alexsandra Gambino APRN Pre Op Diagnosis: Diabetic Foot Infection/Osteomyelitis Patient Data Age: 38 Gender: F Height: 1.52 m Weight: 54 kg Last Vital Signs Temp 97.9 F 04/09/24 06:15 Pulse 72 04/09/24 08:00 Resp 18 04/09/24 08:00 BP 106/71 04/09/24 06:15 Pulse Ox 98 04/09/24 08:00 O2 Del Method Room Air 04/09/24 08:00 FiO2 21 04/09/24 08:00 Allergies Allergy/AdvReac Type Severity Reaction Status Date / Time blueberry Allergy Difficulty Verified 04/05/24 22:02 Breathing haloperidol [From Haldol] AdvReac Intermediate tongue Verified 04/05/24 22:02 protrusion quetiapine [From Seroquel] AdvReac Other Verified 04/05/24 22:02 Home Medications Medication Instructions Recorded Confirmed Type insulin detemir U-100 100 unit/mL 15 unit subcut TID 11/23/23 04/06/24 History (3 mL) subcutaneous pen (Levemir FlexPen) Laboratory Tests 04/08/24 04/08/24 04/08/24 11:44 16:28 18:18 WBC RBC Hgb Hct MCV MCH MCHC RDW Plt Count MPV Immature Gran % (Auto) Neut % (Auto) Lymph % (Auto) Garvin % (Auto) Eos % (Auto) Baso % (Auto) Lymph # (Auto) Garvin # (Auto) Eos # (Auto) Baso # (Auto) Abs Immat Gran (auto) Absolute Neuts (auto) Absolute Nucleated RBC Nucleated RBC % Sodium Potassium Chloride Carbon Dioxide Anion Gap BUN Creatinine Estim Creat Clear Calc Estimated GFR Glucose POC Capillary Glucose 231 H mg/dl 193 H mg/dl (65-105) (65-105) Calcium Magnesium Total Bilirubin AST ALT Alkaline Phosphatase Total Protein Albumin Beta HCG, Quant Vancomycin Trough C. trachomatis (PCR) Not detected (NOT DETECTE) N. gonorrhoeae (PCR) Not detected (NOT DETECTE) 04/08/24 04/09/24 04/09/24 20:34 05:19 07:51 WBC 5.4 K/mm3 (4.5-10.0) RBC 3.47 L M/mm3 (4.2-5.4) Hgb 8.8 L g/dL (12.0-15.0) Hct 27.5 L % (37.0-47.0) MCV 79.3 L fl (80-100) MCH 25.4 L pg (26-34) MCHC 32.0 g/dl (32-36) RDW 18.0 H % (11.5-14.5) Plt Count 276 k/mm3 (150-375) MPV 9.4 fl (7.4-10.4) Immature Gran % (Auto) 0.2 % (0-0.5) Neut % (Auto) 58.3 % (45.5-73.1) Lymph % (Auto) 29.9 % (18.3-44.2) Garvin % (Auto) 9.9 H % (2.6-8.5) Eos % (Auto) 1.3 % (0-4.4) Baso % (Auto) 0.4 % (0.2-1.2) Lymph # (Auto) 1.61 K/mm3 (0.9-3.2) Garvin # (Auto) 0.5 K/mm3 (0.1-0.6) Eos # (Auto) 0.1 K/mm3 (0-0.3) Baso # (Auto) 0.0 K/mm3 (0.0-0.1) Abs Immat Gran (auto) 0.01 K/mm3 (0.00-0.031) Absolute Neuts (auto) 3.1 K/mm3 (1.3-6.7) Absolute Nucleated RBC 0.000 K/mm3 (0.0-0.012) Nucleated RBC % 0.0 % (0.0-0.2) Sodium 134 L mmol/L (137-145) Potassium 4.6 mmol/L (3.4-5.0) Chloride 104 mmol/L (98-107) Carbon Dioxide 25 mmol/L (22-30) Anion Gap 5 mmol/L (4-12) BUN 19 H mg/dL (7-17) Creatinine 1.00 mg/dL (0.7-1.0) Estim Creat Clear Calc 49 ml/min Estimated GFR
--- NOTE | 2024-04-09 11:57 | PM.PNGS ---
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 She does not want amputation, knowing that this will potentially take a long time to heal. Will proceed with incision and drainage of left great toe. Discussed procedure, risks, benefits, and alternatives. (2) Positive test: Code(s): Z32.01 - Encounter for test, result positive Status: Acute Assessment and Plan: Tubal suspected. Dr. Torres discussing proceeding with laparoscopic salpingectomy. Will try to coordinate surgeries tomorrow. Subjective Subjective Date/Time Seen: 04/09/24 11:57 Interval history: Patient still having drainage of toe wound. Having pain. No fevers. Exam Extrem: Other: left great toe diabetic wound, swelling and erythema. scant drainage. Objective Data Vital Signs Vital Signs: Vital Signs - 24 hr 04/08/24 13:47 04/08/24 20:00 04/08/24 21:00 Temperature 36.4 C 36.2 C L Pulse Rate 86 101 H Respiratory Rate 14 16 Blood Pressure 149/84 H 152/93 H Pulse Oximetry 100 100 99 Oxygen Delivery Room Air Fraction of Inspired Oxygen 04/09/24 06:15 04/09/24 08:00 Temperature 36.6 C Pulse Rate 72 72 Respiratory Rate 18 18 Blood Pressure 106/71 Pulse Oximetry 98 98 Oxygen Delivery Room Air Fraction of Inspired Oxygen 21 Intake/Output Intake/Output: Intake & Output 04/06/24 04/07/24 04/08/24 04/09/24 23:59 23:59 23:59 23:59 Intake Total 2150 1750 1490 1580 Output Total 1000 Balance 2150 5090 273 3129 Meds/Results Medications: Active Medications Generic Name Dose Route Start Last Admin Trade Name Freq PRN Reason Stop Dose Admin Acetaminophen 650 mg 04/06/24 03:10 04/08/24 20:45 Acetaminophen 325 Mg Tablet PO 650 mg Q4H PRN Administration Mild Pain (1-3) or Fever Hydrocodone Bitart/Acetaminophen 1 tab 04/06/24 03:10 04/09/24 07:05 Hydrocodone/Acetaminophen (*Crx) 5-325 Mg Tablet PO 1 tab Q4H PRN Administration Pain Rated 4-6 Dextrose 12.5 gm 04/07/24 07:27 Dextrose 50% 25 Gm/50 Ml Syringe IV PUSH PRN PRN Hypoglycemia Protocol Docusate Sodium 100 mg 04/07/24 09:00 04/09/24 08:22 Docusate Sodium 100 Mg Capsule PO Not Given Q12HR DORA Glucagon 1 mg 04/07/24 07:27 Glucagon For Inj 1 Mg Vial IM PRN PRN Hypoglycemia Protocol Glucose 15 gm 04/07/24 07:27 Glucose Oral Gel 15 Gm Of Glucse In 37.5 Gm Tube PO PRN PRN Hypoglycemia Protocol Cefepime HCl 1 gm in 50 mls @ 100 mls/hr 04/06/24 12:00 04/09/24 01:00 Maxipime 1 Gm/Ns 50 Ml IVPB Infused Q12H DORA Infusion Metronidazole 500 mg in 100 mls @ 100 mls/hr 04/06/24 09:00 04/09/24 10:31 Flagyl 500 Mg/Iso Soln 100 Ml IVPB 100 mls/hr Q8H DORA Administration Dextrose 1,000 mls @ 100 mls/hr 04/07/24 07:27 Dextrose 5% 1,000 Ml IVPB PRN PRN Hypoglycemia Protocol Vancomycin HCl 1,000 mg in 250 mls @ 250 mls/hr 04/09/24 12:00 Vancomycin 1,000 Mg/Ns 250 Ml IVPB Q8H DORA Insulin Aspart 3 - 6 units 04/07/24 08:00 04/09/24 08:21 Insulin Aspart (*Bkc) 100 Units/Ml SUB-Q Not Given TIDWM [facility] Protocol Insulin Aspart 1 - 3 units 04/06/24 21:00 04/08/24 21:25 Insulin Aspart (*Bkc) 100 Units/Ml SUB-Q Not Given HS DORA Protocol Insu
[2024-04-09 11:58] LABS: Glucose Point of Care 244 mg/dl (65-105)
--- NOTE | 2024-04-09 12:00 | WPDHPUPDATE1 ---
History and Physical Update Update Date/Time: 04/09/24 12:00 History and Physical has been reviewed, including an updated exam of the patient. There are NO changes in the patient's condition. Risks, benefits, and alternatives have been discussed and questions answered. Patient agrees to proceed with procedure.
[2024-04-09] MEDS: VANCOMYCIN 1,000 MG/NS 250 ML 1,000 MG/250 ML BAG 250 MG IVPB ×2 (12:39→21:22)
[2024-04-09] MEDS: BUPIVACAINE/EPINEPHRINE 0.5% 50 ML VIAL 30 ML INFILTRATE (12:55)
--- NOTE | 2024-04-09 13:44 | W.PM.PROC2 ---
Procedure Note - Detailed Date of Procedure 04/09/24 Pre-op Diagnosis Tubal Thickened endometrium Diabetic Foot Infection/Osteomyelitis Post-op Diagnosis Same Procedure Performed Laparoscopic bilateral salpingectomy, suction D&C Surgeon Roslyn Torres MD Sewing Pattern Layout Technician Victor Manuel Anesthesia General and Local (11cc of 0.5% Marcaine w/ epi) Findings Uterus sounded to 10cm, stenotic cervix. No vaginal bleeding/normal cervix. Omental adhesions to the mid abdomen; taken down. The uterus was completely adhered to the anterior abdominal wall. Tubal in the left fallopian tube. Right fallopian tube atrophied; no obvious tubal segment missing or Filshie clips noted (tubal possible bipolar??). Significant amount of endometrial tissue removed. Good hemostasis at end of case. Description of Procedure Srinivas was taken to the operating room where she was placed under general endotracheal anesthesia without complications. She was then prepped and draped in the usual sterile fashion in the dorsal lithotomy position with her legs in low Justin stirrups and her arms tucked at her side with a strap over her chest. A time-out was performed and no preoperative antibiotics were indicated, but she was continued on her antibiotics for her toe osteomyelitis. My attention was turned down below where a Reinoso catheter was placed. A bivalve speculum was then placed within the vagina where the cervix was easily identified. The anterior lip of the cervix was grasped with a single-tooth tenaculum, the uterus was sounded, and a diagnostic uterine manipulator was placed without complications. My gloves were changed and my attention was turned to her abdomen. An umbilical incision was made, and a 5 mm trocar was placed under direct visualization without complications. Once intra-abdominal placement was confirmed the abdomen was insufflated with carbon dioxide gas. She was then placed in Trendelenburg and two additional 5 mm ports were placed in the left and right lower quadrants under direct visualization without complications. The above findings were noted. The omental adhesions were taken down without issue using the LigaSure device and good hemostasis was noted. The left fallopian tube with ectopic was then elevated and the mesosalpinx was serially clamped, coagulated, transected using the LigaSure device until the proximal end of the fallopian tube was reached. The proximal end of the fallopian tube was cross clamped, coagulated and transected. The left 5mm trocar was upsized to a 10-11mm port to allow the tube/ectopic to be removed w/o issue. The tube was then placed in a bag and removed from the abdomen. The same procedure was then performed on the right side without any complications. Good hemostasis was noted. The 10mm port incision site was reapproximated using a single 0-Vicryl stitch using the Zohaib Og device and the fascia was reapproximated (no pneumoperitoneum was released). All instruments were removed from the abdomen. The insufflation was released and the trocars were removed. The 3 laparoscopic incision sites were reapproximated using 4-0 Monocryl and covered with Dermabond. The incisions were then infiltrated using 0.5% Marcaine. The uterine manipulator was removed. The cervix was dilated to allow for the 7mm suction curettage. The suction curettage was placed at the fundus; suction was applied and the curettage was slowly removed while twisting in a close milner fashion. This was performed 3 times. On the last pass, minimal tissue/blood was removed. The curettage was complete and good hemostasis with minimal bleeding was noted. All instruments were removed from the vagina. The Reinoso catheter was then removed. Sponge, lap, instrument, and needle counts were correct at the end of my procedure. The patient remained under general anesthesia in a stable condition. Dr. Lopez then proceeded with his surgery. Estimated Blood Loss 20
--- NOTE | 2024-04-09 14:03 | W.PM.PROC2 ---
Procedure Note - Detailed Date of Procedure 04/09/24 Pre-op Diagnosis Diabetic Foot Infection/Osteomyelitis Post-op Diagnosis Same Procedure Performed Incision and drainage of left great toe abscess Surgeon J Carlos Lopez, DO Anesthesia General and Local ( 0.5% bupivacaine) Indications this is a 38-year-old woman who presented with a left great toe diabetic foot infection. She initially had an injury to the nail bed that developed into a deeper infection over the past few weeks. She had been trying local wound care at home but after it was worsening she decided to come to the emergency department. The patient had findings on the x-ray concerning for osteomyelitis of the distal tip of the phalanx. She has an open wound that is draining some scant purulence drainage. Discussed possibility of eventually needing amputation but patient does not want to consider amputation at this time. Discussed proceeding initially with incision and drainage to allow adequate control of the infection. She was also noted to have a tubal Dr. Torres evaluated patient decision was made to proceed with laparoscopic bilateral salpingectomy. Findings Incision and drainage of left great toe abscess was performed. The patient had some callused skin that had a carefully be removed to adequately visualize the location of the infection. I also had to cut away some of the toenail to adequately visualize the area where the infection was. An incision was carried along the plantar surface of the toe where the infection was tracking. There was some scant purulence drainage and tunneling down to the distal phalanx. No other significant abnormality was noted. Description of Procedure Procedure as well as risks, benefits, and alternatives were discussed with the patient. Written consent was obtained and placed in chart prior to procedure. Patient was brought back to surgical suite. She was placed supine on operating table. Time-out was done to confirm patient and procedure. She was intubated by the anesthesia department. Dr. Torres performed her portion of the procedure. Please refer to her operative report for details. Her left foot area was prepped and draped in sterile fashion using Betadine prep. The open wound on the tip of the left great toe was anesthetized with 0.5% bupivacaine. At a curved hemostat was then inserted into the open wound and the tracking was identified going slightly lateral and plantar. A 15 blade was used to make an incision directly over this area to open up the wound. Some of the callus skin around this area was also carefully excised using a hemostat and scissors. I then also had to cut away some of the toenail to adequately visualize the nail bed for any other signs of deeper infection. The wound bed was then probed with a curved hemostat for any other pockets of infection or any loculations. The wound was then irrigated with sterile saline and packed with quarter-inch iodoform gauze. 4 x 4 gauze and Kerlix wrap were then applied. The patient was then awakened from anesthesia, extubated, and transferred to recovery. Estimated Blood Loss 20 IV Fluids 600 Urine Output 700 Packing Yes (1/4 iodoform gauze) Complications No immediate complications Condition Stable Disposition Floor [facility] Billing Surgery - Charge Forward: Surgery Billing
[2024-04-09 14:19] LABS: Glucose Point of Care 209 mg/dl (65-105)
--- NOTE | 2024-04-09 14:20 | SUR.PHASEI ---
1420- Call to Dr. Valles patient's blood glucose 209, no new orders at this time.
[2024-04-09] MEDS: fentaNYL CITRATE INJ (*CRX) 100 MCG/2 ML VIAL 25 MCG IV PUSH ×4 (14:24→14:49)
[2024-04-09] MEDS: ONDANSETRON INJ 4 MG/2 ML VIAL IV PUSH ×2 (16:47→23:03)
[2024-04-09 17:09] LABS: Glucose Point of Care 167 mg/dl (65-105)
[2024-04-09] MEDS: HYDROmorphone HCL INJ (*CRX) 1 MG/ML SYR IV PUSH ×2 (17:24→21:15)
[2024-04-09] MEDS: INSULIN GLARGINE (*BKC) 100 UNITS/ML 15 UNITS SUB-Q (21:18)
[2024-04-09 21:34] LABS: Glucose Point of Care 194 mg/dl (65-105)
[2024-04-09] MEDS: HYDROcodone/acetaminophen (*CRX) 10-325 MG TABLET 1 TAB PO (23:03)
[2024-04-10] MEDS: metroNIDAZOLE 500 MG/ISO 100ML 500 MG/100 ML BAG 100 MG IVPB ×2 (00:10→09:53)
[2024-04-10 01:05] VITALS: BP 124/78; PULSE 81; RESP 20; TEMP 36.6; O2SAT 100
[2024-04-10] MEDS: VANCOMYCIN 1,000 MG/NS 250 ML 1,000 MG/250 ML BAG 250 MG IVPB (03:20)
[2024-04-10] MEDS: HYDROcodone/acetaminophen (*CRX) 10-325 MG TABLET 1 TAB PO ×3 (03:20→19:29)
[2024-04-10 05:05] VITALS: BP 125/77; PULSE 90; RESP 20; TEMP 36.6; O2SAT 99
[2024-04-10] MEDS: HYDROmorphone HCL INJ (*CRX) 1 MG/ML SYR IV PUSH ×4 (05:41→21:34)
[2024-04-10] MEDS: ONDANSETRON INJ 4 MG/2 ML VIAL IV PUSH ×2 (06:10→22:06)
--- NOTE | 2024-04-10 06:41 | PM.GYNPNOP ---
FLOOR SPECIALIST - A/P Assessment and plan (1) Ectopic , tubal: Qualifiers: Intrauterine status: without intrauterine Laterality: left Qualified Code(s): O00.102 - Left tubal without intrauterine Code(s): O00.109 - Unspecified tubal without intrauterine Status: Acute Plan - Left tubal managed surgically; surgery uncomplicated; awaiting pathology - Pain meds PRN (percocet 5/325 q4h, percocet 10/325 q6h) - Stool softeners (colace 100mg) BID while taking pain meds, zofran PRn - Regular/diabetic diet - Pelvic rest/no heavy lifting over 15 pounds for 2 weeks - FLOOR SPECIALIST will sign off Postoperative Procedures: Procedures Operation Date: 04/09/24 12:30 Actual Procedure Side Surgeon p Incision and Drainage Left Great Toe, Left J Carlos Lopez, DO s Laparoscopic Bilateral Salpingectomy Bilateral Roslyn Torres MD s D&C Suction and Sharp Not Applicable Roslyn Torres MD Postoperative day: 1 Postoperative status: doing well Postoperative plan: routine post-op care Time Spent With Patient Time: Total time spent is greater than 50% in coordination of care (as documented) at patient's floor/unit and/or counseling patient: Time with patient: less than 15 minutes FLOOR SPECIALIST- PN:Subj Post-Op Subjective Date/time seen: 04/10/24 06:41 Interval history: POD#1 Srinivas reports doing ok today. She's having more pain on the left side; taking the PO meds. She has tolerated CLD, had some post-op nausea, but has kept water down now. She has very light vaginal bleeding. She has voided. She has passed flatus. Review of Systems Review of Systems: All systems reviewed & are unremarkable except as noted in HPI and below (HPI) Constitutional: Constitutional: Denies chills, Denies fever(s) and Denies headache(s) Eyes: Eyes: Denies change in vision ENT: Denies dizziness and Denies headache(s) Cardiovascular: Cardiovascular: Denies chest pain and Denies rapid heart rate Respiratory: Respiratory: Denies cough Genitourinary: Genitourinary: Denies abnormal vaginal bleeding Neurologic: Denies dizziness and Denies headache(s) Exam Const: General: cooperative, healthy appearing, comfortable and no acute distress Orientation/consciousness: patient oriented x3 Resp: Effort & Inspection: normal respiratory effort Auscultation: clear to auscultation bilaterally Cardio: Rate: regular rate GI: Inspection: normal to inspection and incision (3 LSC incisions c/d/i covered with dermabond) GI Palp: Yes abdominal tenderness (appropriate) and Yes Soft to palpation Auscultation: normal bowel sounds : Other: normal bleeding on pad Skin: General skin exam: normal color Neuro: General: patient oriented x3 Psych: Appearance: grossly normal Affect: normal affect Attitude: cooperative FLOOR SPECIALIST - PN: Obj Data Vital Signs Vital Signs: Vital Signs - 24 hr 04/09/24 08:00 04/09/24 11:41 04/09/24 13:59 Temperature 99.3 F 97.3 F L Pulse Rate 72 100 87 Respiratory Rate 18 20 14 Blood Pressure 141/90 H 119/73 Pulse Oximetry 98 100 100 Oxygen Delivery Room Air Room Air Simple Face Mask Oxygen Flow Rate 8 Fraction of Inspired Oxygen 21 04/09/24 14:05 04/09/24 14:20 04/09/24 14:35 Temperature Pulse Rate 94 91 90 Respiratory Rate 13 14 16 Blood Pressure 134/86 157/98 H 133/83 Pulse Oximetry 100 100 100 Oxygen Delivery Simple Face Mask Simple Face Mask Room Air Oxygen Flow Rate 8 8 Fraction of Inspired Oxygen 04/09/24 14:50 04/09/24 15:05 04/09/24 15:20 Temperature 97.2 F L Pulse Rate 76 79 82 Respiratory Rate 14 16 14 Blood Pressure 112/84 105/68 111/72 Pulse Oximetry 94 96 96 Oxygen Delivery Room Air Room Air Room Air Oxygen Flow Rate Fraction of Inspired Oxygen 04/09/24 15:30 04/09/24 15:31 04/09/24 15:46 Temperature 97.7 F 97.6 F Pulse Rate 81 83 86 Respiratory Rate 14 16 18 Blood Pressure 116/78
[2024-04-10 06:52] LABS: Basophils Percent Auto 0.5 % (0.2-1.2); Eosinophils Absolute Auto 0.1 K/mm3 (0-0.3); Eosinophils Percent Auto 1.7 % (0-4.4); Hematocrit 26.8 % (37.0-47.0); Hemoglobin 8.3 g/dL (12.0-15.0); Immature Granulocyte Absolute 0.01 K/mm3 (0.00-0.031); Immature Granulocyte Percent A 0.2 % (0-0.5); Lymphocytes Absolute Auto 1.36 K/mm3 (0.9-3.2); Lymphocytes Percent Auto 21.1 % (18.3-44.2); Mean Corpuscular Hemoglobin 25.2 pg (26-34); Mean Corpuscular Volume 81.5 fl (80-100); Mean Platelet Volume 9.6 fl (7.4-10.4); Monocytes Absolute Auto 0.6 K/mm3 (0.1-0.6); Monocytes Percent Auto 8.9 % (2.6-8.5); Neutrophils Absolute Auto 4.4 K/mm3 (1.3-6.7); Neutrophils Percent Auto 67.6 % (45.5-73.1); Platelet Count Result 245 k/mm3 (150-375); Red Blood Count 3.29 M/mm3 (4.2-5.4); Red Cell Distribution Width 18.1 % (11.5-14.5); White Blood Count 6.4 K/mm3 (4.5-10.0)
[2024-04-10 07:05] LABS: Alanine Aminotransferase 29 U/L (6-35); Albumin Level 3.4 g/dL (3.5-5.1); Alkaline Phosphatase 68 U/L (38-126); Anion Gap 5 mmol/L (4-12); Aspartate Amino Transferase 52 U/L (14-36); Bilirubin,Total 0.4 mg/dL (0.2-1.3); Blood Urea Nitrogen 10 mg/dL (7-17); Calcium 8.7 mg/dL (8.4-10.2); Carbon Dioxide 23 mmol/L (22-30); Chloride 106 mmol/L (98-107); Estimated CRCL calculation 60 ml/min; Estimated Glomerular Filt Rate > 60; Glucose 151 mg/dL (65-110); Sodium 134 mmol/L (137-145)
[2024-04-10 07:30] LABS: Glucose Point of Care 146 mg/dl (65-105)
[2024-04-10 08:00] VITALS: PULSE 90; RESP 20; O2SAT 99
--- NOTE | 2024-04-10 08:29 | P.PNIM_ITS ---
Progress Note: A&P Assessment and Plan (1) Ectopic , tubal: Qualifiers: Intrauterine status: without intrauterine Laterality: left Qualified Code(s): O00.102 - Left tubal without intrauterine Code(s): O00.109 - Unspecified tubal without intrauterine Status: Acute Assessment and Plan: Beta hCG was positive on admission 2818. * ultrasound does not show gestational sac * POD 1 laparoscopic lateral salpingectomy with D&C and I&D of left greater toe chronic ulcer * pain medication with Percocet 5-10 mg prn * Colace BID * Pelvic rest and no heavy lifting over 15 pounds for 2 weeks. * HOUSE WORKER signed off. (2) Osteomyelitis: Qualifiers: Laterality: left Osteomyelitis location: foot Osteomyelitis type: unspecified type Qualified Code(s): M86.9 - Osteomyelitis, unspecified Code(s): M86.9 - Osteomyelitis, unspecified Status: Acute Assessment and Plan: Left foot x-ray shows concerns or erosion of 1st distal phalanx consistent with osteomyelitis. * Patient was started on broad-spectrum therapy with cefepime, Flagyl, vancomycin * WBC 6.9 on presentation, afebrile, lactic negative * Wound culture grew yeast * Blood cultures with no growth to date * POD 1 I&D of left greater toe diabetic ulcer * MRI ordered to osteomyelitis * If osteomyelitis is present patient will need 6 weeks of IV antibiotic therapy. Unfortunately she does not her primary care provider so we will need to defer to surgery to follow for these antibiotics. (3) Septic arthritis: Code(s): M00.9 - Pyogenic arthritis, unspecified Status: Acute Assessment and Plan: X-ray imaging of the right hand shows erosions at 1st interphalangeal joint consistent with septic arthritis, although this appear chronic and not an acute issue. * Patient is on vancomycin, cefepime, Flagyl * Echocardiogram showed normal LV systolic function with an EF estimated at 60- 65%, normal LV diastolic, no concerns for vegetation * Blood cultures grew yeast * While her thumb is edematous it does not have erythema (4) Diabetes mellitus: Qualifiers: Diabetes mellitus complication detail: with foot ulcer Diabetes mellitus complication status: with skin complications Diabetes mellitus spd tech insulin use: with spd tech use Diabetes mellitus type: due to underlying condition Qualified Code(s): E08.621 - Diabetes mellitus due to underlying condition with foot ulcer; L97.509 - Non-pressure chronic ulcer of other part of unspecified foot with unspecified severity; 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 Hemoglobin A1c 13.4% on admission * Patient was started on basal bolus insulin. Increasing NovoLog to 5 units t.i.d. with meals and moderate sliding scale. * Increased Lantus to 15 units HS * Fasting glucose was 151 today * A.c. HS Accu-Cheks, hypoglycemia protocol ordered, diabetic diet Plan Feeding: Diabetic diet Analgesia: Tylenol and [place] Thromboembolic prophylaxis: SCDs Glycemic control: Basal bolus Novolog, Lantus Bowel regimen: MiraLax and Colace Lines: PIV Antibiotics: Cefepime Vanc Flagyl Disposition: Patient presented after a fall was having pain to her right hand and left foot. Imaging was obtained and is concerning for left foot osteomyelitis and right hand septic joint (appears chronic). She was started on broad-spectrum antibiotics. In the interim she was ad
--- NOTE | 2024-04-10 08:29 | PM.IMPN ---
Progress Note: A&P Assessment and Plan (1) Ectopic , tubal: Qualifiers: Intrauterine status: without intrauterine Laterality: left Qualified Code(s): O00.102 - Left tubal without intrauterine Code(s): O00.109 - Unspecified tubal without intrauterine Status: Acute Assessment and Plan: Beta hCG was positive on admission 2818. ultrasound does not show gestational sac POD 1 laparoscopic lateral salpingectomy with D&C and I&D of left greater toe chronic ulcer pain medication with Percocet 5-10 mg prn Colace BID Pelvic rest and no heavy lifting over 15 pounds for 2 weeks. MANAGER OF PHOTOGRAPHY signed off. (2) Osteomyelitis: Qualifiers: Laterality: left Osteomyelitis location: foot Osteomyelitis type: unspecified type Qualified Code(s): M86.9 - Osteomyelitis, unspecified Code(s): M86.9 - Osteomyelitis, unspecified Status: Acute Assessment and Plan: Left foot x-ray shows concerns or erosion of 1st distal phalanx consistent with osteomyelitis. Patient was started on broad-spectrum therapy with cefepime, Flagyl, vancomycin WBC 6.9 on presentation, afebrile, lactic negative Wound culture grew yeast Blood cultures with no growth to date POD 1 I&D of left greater toe diabetic ulcer MRI ordered to osteomyelitis If osteomyelitis is present patient will need 6 weeks of IV antibiotic therapy. Unfortunately she does not her primary care provider so we will need to defer to surgery to follow for these antibiotics. (3) Septic arthritis: Code(s): M00.9 - Pyogenic arthritis, unspecified Status: Acute Assessment and Plan: X-ray imaging of the right hand shows erosions at 1st interphalangeal joint consistent with septic arthritis, although this appear chronic and not an acute issue. Patient is on vancomycin, cefepime, Flagyl Echocardiogram showed normal LV systolic function with an EF estimated at 60-65%, normal LV diastolic, no concerns for vegetation Blood cultures grew yeast While her thumb is edematous it does not have erythema (4) Diabetes mellitus: Qualifiers: Diabetes mellitus complication detail: with foot ulcer Diabetes mellitus complication status: with skin complications Diabetes mellitus residential insulin use: with residential use Diabetes mellitus type: due to underlying condition Qualified Code(s): E08.621 - Diabetes mellitus due to underlying condition with foot ulcer; L97.509 - Non-pressure chronic ulcer of other part of unspecified foot with unspecified severity; Z79.4 - prison (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 Hemoglobin A1c 13.4% on admission Patient was started on basal bolus insulin. Increasing NovoLog to 5 units t.i.d. with meals and moderate sliding scale. Increased Lantus to 15 units HS Fasting glucose was 151 today A.c. HS Accu-Cheks, hypoglycemia protocol ordered, diabetic diet Plan Feeding: Diabetic diet Analgesia: Tylenol and [place] Thromboembolic prophylaxis: SCDs Glycemic control: Basal bolus Novolog, Lantus Bowel regimen: MiraLax and Colace Lines: PIV Antibiotics: Cefepime Vanc Flagyl Disposition: Patient presented after a fall was having pain to her right hand and left foot. Imaging was obtained and is concerning for left foot osteomyelitis and right hand septic joint (appears chronic). She was started on broad-spectrum antibiotics. In the interim she was admitted to the medical floor with a General surgery consult. She is a type 2 diabetic with uncontrolled diabetes. Efforts will be made to obtain better glucose control in setting of infection. Echocardiogram without vegetation. She was found to have concerns for ectopic . POD 1 from laparoscopic lateral salpingectomy with D&C as well as left g
[2024-04-10] MEDS: INSULIN ASPART (*BKC) 100 UNITS/ML SUB-Q (09:52)
--- NOTE | 2024-04-10 11:05 | WPDANESPN ---
Anes - Prog Note Post-Op Date/Time: 04/10/24 11:05 Cardiovascular status: normal Respiratory status: normal Airway patency: baseline Mental status: baseline Post-Op hydration status: normal Vital Signs: Last Vital Signs Temp 36.6 C 04/10/24 05:05 Pulse 90 04/10/24 05:05 Resp 20 04/10/24 05:05 BP 125/77 04/10/24 05:05 Pulse Ox 99 04/10/24 05:05 O2 Del Method Room Air 04/09/24 20:00 O2 Flow Rate 8 04/09/24 14:20 FiO2 21 04/09/24 08:00 Pain Score (VAS): 01/03 I/O: Intake & Output 04/09/24 04/10/24 04/10/24 23:59 07:59 15:59 Intake Total 400 380 Output Total 200 Balance 400 180 Laboratory Tests 04/10/24 06:29 04/10/24 06:29 04/09/24 04/09/24 04/09/24 11:56 14:17 17:06 WBC RBC Hgb Hct MCV MCH MCHC RDW Plt Count MPV Immature Gran % (Auto) Neut % (Auto) Lymph % (Auto) [place] % (Auto) Eos % (Auto) Baso % (Auto) Lymph # (Auto) [place] # (Auto) Eos # (Auto) Baso # (Auto) Abs Immat Gran (auto) Absolute Neuts (auto) Absolute Nucleated RBC Nucleated RBC % Sodium Potassium Chloride Carbon Dioxide Anion Gap BUN Creatinine Estim Creat Clear Calc Estimated GFR Glucose POC Capillary Glucose 244 H 209 H 167 H Calcium Magnesium Total Bilirubin AST ALT Alkaline Phosphatase Total Protein Albumin Vancomycin Trough 04/09/24 04/10/24 04/10/24 20:54 06:29 07:23 WBC 6.4 RBC 3.29 L Hgb 8.3 L Hct 26.8 L MCV 81.5 MCH 25.2 L MCHC 31.0 L RDW 18.1 H Plt Count 245 MPV 9.6 Immature Gran % (Auto) 0.2 Neut % (Auto) 67.6 Lymph % (Auto) 21.1 [place] % (Auto) 8.9 H Eos % (Auto) 1.7 Baso % (Auto) 0.5 Lymph # (Auto) 1.36 [place] # (Auto) 0.6 Eos # (Auto) 0.1 Baso # (Auto) 0.0 Abs Immat Gran (auto) 0.01 Absolute Neuts (auto) 4.4 Absolute Nucleated RBC 0.000 Nucleated RBC % 0.0 Sodium 134 L Potassium 4.0 Chloride 106 Carbon Dioxide 23 Anion Gap 5 BUN 10 D Creatinine 0.80 Estim Creat Clear Calc 60 Estimated GFR > 60 Glucose 151 H POC Capillary Glucose 194 H 146 H Calcium 8.7 Magnesium 2.0 Total Bilirubin 0.4 AST 52 H ALT 29 Alkaline Phosphatase 68 Total Protein 6.0 L Albumin 3.4 L Vancomycin Trough 04/10/24 10:50 WBC RBC Hgb Hct MCV MCH MCHC RDW Plt Count MPV Immature Gran % (Auto) Neut % (Auto) Lymph % (Auto) [place] % (Auto) Eos % (Auto) Baso % (Auto) Lymph # (Auto) [place] # (Auto) Eos # (Auto) Baso # (Auto) Abs Immat Gran (auto) Absolute Neuts (auto) Absolute Nucleated RBC Nucleated RBC % Sodium Potassium Chloride Carbon Dioxide Anion Gap BUN Creatinine Estim Creat Clear Calc Estimated GFR Glucose POC Capillary Glucose Calcium Magnesium Total Bilirubin AST ALT Alkaline Phosphatase Total Protein Albumin Vancomycin Trough Pending Post-procedural complaints: nausea Patient Feedback: Patient satisfied with anesthetic care.
[2024-04-10 11:18] LABS: Glucose Point of Care 164 mg/dl (65-105)
[2024-04-10 11:27] LABS: Vancomycin Trough 20.3 ug/mL (10.0-20.0)
--- NOTE | 2024-04-10 11:42 | PM.PNGS ---
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 With concerns for bone involvement on Xray, will likely require 6 weeks of IV antibiotics. Could consider MRI or bone scan to determine for sure if this will be necessary. Subjective Subjective Date/Time Seen: 04/10/24 11:42 Interval history: Doing well. Pain controlled. No fevers. Exam Extrem: Other: Left great toe wound--scant serosanguinous drainage, no purulence or necrosis. Objective Data Vital Signs Vital Signs: Vital Signs - 24 hr 04/09/24 13:59 04/09/24 14:05 04/09/24 14:20 Temperature 36.3 C L Pulse Rate 87 94 91 Respiratory Rate 14 13 14 Blood Pressure 119/73 134/86 157/98 H Pulse Oximetry 100 100 100 Oxygen Delivery Simple Face Mask Simple Face Mask Simple Face Mask Oxygen Flow Rate 8 8 8 04/09/24 14:35 04/09/24 14:50 04/09/24 15:05 Temperature 36.2 C L Pulse Rate 90 76 79 Respiratory Rate 16 14 16 Blood Pressure 133/83 112/84 105/68 Pulse Oximetry 100 94 96 Oxygen Delivery Room Air Room Air Room Air Oxygen Flow Rate 04/09/24 15:20 04/09/24 15:30 04/09/24 15:31 Temperature 36.5 C Pulse Rate 82 81 83 Respiratory Rate 14 14 16 Blood Pressure 111/72 116/78 126/75 Pulse Oximetry 96 96 100 Oxygen Delivery Room Air Room Air Oxygen Flow Rate 04/09/24 15:46 04/09/24 16:16 04/09/24 17:16 Temperature 36.4 C 36.4 C 36.5 C Pulse Rate 86 86 85 Respiratory Rate 18 18 18 Blood Pressure 127/85 127/85 136/80 Pulse Oximetry 100 100 100 Oxygen Delivery Oxygen Flow Rate 04/09/24 20:50 04/09/24 20:00 04/10/24 01:05 Temperature 36.3 C L 36.6 C Pulse Rate 82 81 Respiratory Rate 16 20 Blood Pressure 126/83 124/78 Pulse Oximetry 100 100 100 Oxygen Delivery Room Air Oxygen Flow Rate 04/10/24 05:05 Temperature 36.6 C Pulse Rate 90 Respiratory Rate 20 Blood Pressure 125/77 Pulse Oximetry 99 Oxygen Delivery Oxygen Flow Rate Intake/Output Intake/Output: Intake & Output 04/07/24 04/08/24 04/09/24 04/10/24 23:59 23:59 23:59 23:59 Intake Total 1750 1490 3980 380 Output Total 1000 1400 200 Balance 3440 076 9745 180 Meds/Results Medications: Active Medications Generic Name Dose Route Start Last Admin Trade Name Freq PRN Reason Stop Dose Admin Acetaminophen 650 mg 04/06/24 03:10 04/08/24 20:45 Acetaminophen 325 Mg Tablet PO 650 mg Q4H PRN Administration Mild Pain (1-3) or Fever Hydrocodone Bitart/Acetaminophen 1 tab 04/06/24 03:10 04/09/24 07:05 Hydrocodone/Acetaminophen (*Crx) 5-325 Mg Tablet PO 1 tab Q4H PRN Administration Pain Rated 4-6 Hydrocodone Bitart/Acetaminophen 1 tab 04/09/24 15:31 04/10/24 09:51 Hydrocodone/Acetaminophen (*Crx) 10-325 Mg Tablet PO 1 tab Q4H PRN Administration Pain Rated 7-10 Dextrose 12.5 gm 04/07/24 07:27 Dextrose 50% 25 Gm/50 Ml Syringe IV PUSH PRN PRN Hypoglycemia Protocol Docusate Sodium 100 mg 04/07/24 09:00 04/10/24 09:53 Docusate Sodium 100 Mg Capsule PO Not Given Q12HR DORA Enoxaparin Sodium 40 mg 04/10/24 09:00 04/10/24 09:53 Enoxaparin 40 Mg/0.4 Ml Syringe SUB-Q Not Given DAILY DORA Fluconazole 400 mg 04/10/24 12:00 Fluconazole 100 Mg Tablet PO DAILY DORA Glucagon 1 mg 04/07/24 07:27 Glucagon For Inj 1 Mg Vial IM PRN PRN Hypoglycemia
--- NOTE | 2024-04-10 12:10 | PCWOUND ---
WOCN NOTE Dr Lopez requested patient be placed in a walking boot to off load toe wound. Obtained boot from Surgery and fitted it to patients left foot and leg.
[2024-04-10] MEDS: FLUCONAZOLE 100 MG TABLET 400 MG PO (12:56)
[2024-04-10] MEDS: cefTRIAXone 2 GM/NS 100 ML 2 GM/100 ML BAG IVPB (12:57)
[2024-04-10 14:00] VITALS: BP 132/87; PULSE 84; RESP 18; TEMP 36.2; O2SAT 100
[2024-04-10] MEDS: VANCOMYCIN 750 MG/NS 250 ML 750 MG/250 ML BAG 250 MG IVPB ×2 (14:26→21:34)
[2024-04-10 16:33] LABS: Glucose Point of Care 156 mg/dl (65-105)
[2024-04-10 20:12] LABS: Glucose Point of Care 101 mg/dl (65-105)
[2024-04-10 20:45] VITALS: BP 133/89; PULSE 86; RESP 18; TEMP 35.9; O2SAT 100
[2024-04-10] MEDS: MELATONIN 5 MG TABLET PO (20:48)
[2024-04-11] MEDS: HYDROcodone/acetaminophen (*CRX) 10-325 MG TABLET 1 TAB PO ×3 (01:34→12:39)
[2024-04-11] MEDS: HYDROmorphone HCL INJ (*CRX) 1 MG/ML SYR IV PUSH ×5 (04:02→23:37)
[2024-04-11 05:57] VITALS: BP 127/86; PULSE 74; RESP 18; TEMP 36; O2SAT 100
[2024-04-11] MEDS: VANCOMYCIN 750 MG/NS 250 ML 750 MG/250 ML BAG 250 MG IVPB ×2 (06:07→17:44)
[2024-04-11] MEDS: ONDANSETRON INJ 4 MG/2 ML VIAL IV PUSH (06:17)
[2024-04-11 06:28] LABS: Basophils Percent Auto 0.2 % (0.2-1.2); Eosinophils Absolute Auto 0.2 K/mm3 (0-0.3); Eosinophils Percent Auto 2.5 % (0-4.4); Hematocrit 26.1 % (37.0-47.0); Hemoglobin 8.2 g/dL (12.0-15.0); Immature Granulocyte Absolute 0.01 K/mm3 (0.00-0.031); Immature Granulocyte Percent A 0.2 % (0-0.5); Lymphocytes Absolute Auto 1.43 K/mm3 (0.9-3.2); Lymphocytes Percent Auto 23.4 % (18.3-44.2); Mean Corpuscular HGB Conc 31.4 g/dl (32-36); Mean Corpuscular Hemoglobin 25.6 pg (26-34); Mean Corpuscular Volume 81.6 fl (80-100); Mean Platelet Volume 9.3 fl (7.4-10.4); Monocytes Absolute Auto 0.7 K/mm3 (0.1-0.6); Monocytes Percent Auto 11.1 % (2.6-8.5); Neutrophils Absolute Auto 3.8 K/mm3 (1.3-6.7); Neutrophils Percent Auto 62.6 % (45.5-73.1); Platelet Count Result 244 k/mm3 (150-375); Red Cell Distribution Width 18.1 % (11.5-14.5); White Blood Count 6.1 K/mm3 (4.5-10.0)
[2024-04-11 06:39] LABS: Alanine Aminotransferase 30 U/L (6-35); Albumin Level 3.2 g/dL (3.5-5.1); Alkaline Phosphatase 67 U/L (38-126); Anion Gap 4 mmol/L (4-12); Aspartate Amino Transferase 42 U/L (14-36); Bilirubin,Total 0.3 mg/dL (0.2-1.3); Blood Urea Nitrogen 7 mg/dL (7-17); Calcium 8.8 mg/dL (8.4-10.2); Carbon Dioxide 26 mmol/L (22-30); Chloride 104 mmol/L (98-107); Estimated CRCL calculation 54 ml/min; Estimated Glomerular Filt Rate > 60; Glucose 115 mg/dL (65-110); Potassium 4.1 mmol/L (3.4-5.0); Sodium 134 mmol/L (137-145)
[2024-04-11 07:51] LABS: Glucose Point of Care 129 mg/dl (65-105)
[2024-04-11] MEDS: cefTRIAXone 2 GM/NS 100 ML 2 GM/100 ML BAG IVPB (08:46)
[2024-04-11] MEDS: ENOXAPARIN 40 MG/0.4 ML SYRINGE SUB-Q (08:47)
[2024-04-11] MEDS: FLUCONAZOLE 100 MG TABLET 400 MG PO (08:47)
[2024-04-11] MEDS: INSULIN ASPART (*BKC) 100 UNITS/ML SUB-Q (08:48)
[2024-04-11] MEDS: DOCUSATE SODIUM 100 MG CAPSULE PO (08:48)
--- NOTE | 2024-04-11 10:30 | P.PNIM_ITS ---
Progress Note: A&P Assessment and Plan (1) Ectopic , tubal: Qualifiers: Intrauterine status: without intrauterine Laterality: left Qualified Code(s): O00.102 - Left tubal without intrauterine Code(s): O00.109 - Unspecified tubal without intrauterine Status: Acute Assessment and Plan: Beta hCG was positive on admission 2818. * ultrasound does not show gestational sac * POD 1 laparoscopic lateral salpingectomy with D&C and I&D of left greater toe chronic ulcer * pain medication with Percocet 5-10 mg prn * Colace BID * Pelvic rest and no heavy lifting over 15 pounds for 2 weeks. * CENTRAL SUPPLY TECH signed off. (2) Osteomyelitis: Qualifiers: Laterality: left Osteomyelitis location: foot Osteomyelitis type: unspecified type Qualified Code(s): M86.9 - Osteomyelitis, unspecified Code(s): M86.9 - Osteomyelitis, unspecified Status: Acute Assessment and Plan: Left foot x-ray shows concerns or erosion of 1st distal phalanx consistent with osteomyelitis. * Patient was started on broad-spectrum therapy with cefepime, Flagyl, vancomycin * WBC 6.9 on presentation, afebrile, lactic negative * Wound culture grew yeast * Blood cultures with no growth to date * POD 1 I&D of left greater toe diabetic ulcer * MRI ordered to osteomyelitis * If osteomyelitis is present patient will need 6 weeks of IV antibiotic therapy. Unfortunately she does not her primary care provider so we will need to defer to surgery to follow for these antibiotics. * * - picc line/mid line * - unable to do MRI as pt has metal piercing that cannot be removed * - will consult [facility] pharmacy for antibiotics and once outpt antibiotics arranged- ok to discharged (3) Septic arthritis: Code(s): M00.9 - Pyogenic arthritis, unspecified Status: Acute Assessment and Plan: X-ray imaging of the right hand shows erosions at 1st interphalangeal joint consistent with septic arthritis, although this appear chronic and not an acute issue. * Patient is on vancomycin, cefepime, Flagyl * Echocardiogram showed normal LV systolic function with an EF estimated at 60- 65%, normal LV diastolic, no concerns for vegetation * Blood cultures grew yeast * While her thumb is edematous it does not have erythema (4) Diabetes mellitus: Qualifiers: Diabetes mellitus complication detail: with foot ulcer Diabetes mellitus complication status: with skin complications Diabetes mellitus manager intermediate insulin use: with usp use Diabetes mellitus type: due to underlying condition Qualified Code(s): E08.621 - Diabetes mellitus due to underlying condition with foot ulcer; L97.509 - Non-pressure chronic ulcer of other part of unspecified foot with unspecified severity; 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 Hemoglobin A1c 13.4% on admission * Patient was started on basal bolus insulin. Increasing NovoLog to 5 units t.i.d. with meals and moderate sliding scale. * Increased Lantus to 15 units HS * Fasting glucose was 151 today * A.c. HS Accu-Cheks, hypoglycemia protocol ordered, diabetic diet Plan Feeding: Diabetic diet Analgesia: Tylenol and [place] Thromboembolic prophylaxis: SCDs Glycemic control: Basal bolus Novolog, Lantus Bowel regimen: MiraLax and Colace Lines: PIV Antibiotics: Cefepime Vanc Flagyl Disposition: Patient presented after a fall was having pain to her right
--- NOTE | 2024-04-11 10:30 | PM.IMPN ---
Progress Note: A&P Assessment and Plan (1) Ectopic , tubal: Qualifiers: Intrauterine status: without intrauterine Laterality: left Qualified Code(s): O00.102 - Left tubal without intrauterine Code(s): O00.109 - Unspecified tubal without intrauterine Status: Acute Assessment and Plan: Beta hCG was positive on admission 2818. ultrasound does not show gestational sac POD 1 laparoscopic lateral salpingectomy with D&C and I&D of left greater toe chronic ulcer pain medication with Percocet 5-10 mg prn Colace BID Pelvic rest and no heavy lifting over 15 pounds for 2 weeks. COLOR STRAINER signed off. (2) Osteomyelitis: Qualifiers: Laterality: left Osteomyelitis location: foot Osteomyelitis type: unspecified type Qualified Code(s): M86.9 - Osteomyelitis, unspecified Code(s): M86.9 - Osteomyelitis, unspecified Status: Acute Assessment and Plan: Left foot x-ray shows concerns or erosion of 1st distal phalanx consistent with osteomyelitis. Patient was started on broad-spectrum therapy with cefepime, Flagyl, vancomycin WBC 6.9 on presentation, afebrile, lactic negative Wound culture grew yeast Blood cultures with no growth to date POD 1 I&D of left greater toe diabetic ulcer MRI ordered to osteomyelitis If osteomyelitis is present patient will need 6 weeks of IV antibiotic therapy. Unfortunately she does not her primary care provider so we will need to defer to surgery to follow for these antibiotics. - picc line/mid line - unable to do MRI as pt has metal piercing that cannot be removed - will consult [facility] pharmacy for antibiotics and once outpt antibiotics arranged- ok to discharged (3) Septic arthritis: Code(s): M00.9 - Pyogenic arthritis, unspecified Status: Acute Assessment and Plan: X-ray imaging of the right hand shows erosions at 1st interphalangeal joint consistent with septic arthritis, although this appear chronic and not an acute issue. Patient is on vancomycin, cefepime, Flagyl Echocardiogram showed normal LV systolic function with an EF estimated at 60-65%, normal LV diastolic, no concerns for vegetation Blood cultures grew yeast While her thumb is edematous it does not have erythema (4) Diabetes mellitus: Qualifiers: Diabetes mellitus complication detail: with foot ulcer Diabetes mellitus complication status: with skin complications Diabetes mellitus skilled nursing insulin use: with terminal manager use Diabetes mellitus type: due to underlying condition Qualified Code(s): E08.621 - Diabetes mellitus due to underlying condition with foot ulcer; L97.509 - Non-pressure chronic ulcer of other part of unspecified foot with unspecified severity; 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 Hemoglobin A1c 13.4% on admission Patient was started on basal bolus insulin. Increasing NovoLog to 5 units t.i.d. with meals and moderate sliding scale. Increased Lantus to 15 units HS Fasting glucose was 151 today A.c. HS Accu-Cheks, hypoglycemia protocol ordered, diabetic diet Plan Feeding: Diabetic diet Analgesia: Tylenol and [place] Thromboembolic prophylaxis: SCDs Glycemic control: Basal bolus Novolog, Lantus Bowel regimen: MiraLax and Colace Lines: PIV Antibiotics: Cefepime Vanc Flagyl Disposition: Patient presented after a fall was having pain to her right hand and left foot. Imaging was obtained and is concerning for left foot osteomyelitis and right hand septic joint (appears chronic). She was started on broad-spectrum antibiotics. In the interim she was admitted to the medical floor with a General surgery consult. She is a type 2 diabetic with uncontrolled diabetes. Efforts will be made to obtain better glucose con
[2024-04-11 12:11] LABS: Glucose Point of Care 71 mg/dl (65-105)
[2024-04-11 12:49] LABS: Glucose Point of Care 125 mg/dl (65-105)
--- NOTE | 2024-04-11 13:40 | PM.PNGS ---
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 With concerns for bone involvement on Xray, will likely require 6 weeks of IV antibiotics. Surgically stable for discharge once outpatient antibiotics arranged. Subjective Subjective Date/Time Seen: 04/11/24 13:40 Interval history: Patient improving. Pain controlled. Wants to go home. Exam Extrem: Other: Left great toe wound--scant serosanguinous drainage, no purulence or necrosis. Objective Data Vital Signs Vital Signs: Vital Signs - 24 hr 04/10/24 14:00 04/10/24 20:00 04/10/24 20:45 Temperature 36.2 C L 35.9 C L Pulse Rate 84 86 Respiratory Rate 18 18 Blood Pressure 132/87 133/89 Pulse Oximetry 100 100 Oxygen Delivery Room Air 04/11/24 05:57 Temperature 36.0 C L Pulse Rate 74 Respiratory Rate 18 Blood Pressure 127/86 Pulse Oximetry 100 Oxygen Delivery Intake/Output Intake/Output: Intake & Output 04/08/24 04/09/24 04/10/24 04/11/24 23:59 23:59 23:59 23:59 Intake Total 1490 3980 1940 598 Output Total 1000 1400 600 Balance 490 2580 1340 598 Meds/Results Medications: Active Medications Generic Name Dose Route Start Last Admin Trade Name Freq PRN Reason Stop Dose Admin Acetaminophen 650 mg 04/06/24 03:10 04/08/24 20:45 Acetaminophen 325 Mg Tablet PO 650 mg Q4H PRN Administration Mild Pain (1-3) or Fever Hydrocodone Bitart/Acetaminophen 1 tab 04/06/24 03:10 04/09/24 07:05 Hydrocodone/Acetaminophen (*Crx) 5-325 Mg Tablet PO 1 tab Q4H PRN Administration Pain Rated 4-6 Hydrocodone Bitart/Acetaminophen 1 tab 07/15/24 15:31 04/11/24 12:39 Hydrocodone/Acetaminophen (*Crx) 10-325 Mg Tablet PO 1 tab Q4H PRN Administration Pain Rated 7-10 Dextrose 12.5 gm 04/07/24 07:27 Dextrose 50% 25 Gm/50 Ml Syringe IV PUSH PRN PRN Hypoglycemia Protocol Docusate Sodium 100 mg 04/07/24 09:00 04/11/24 08:48 Docusate Sodium 100 Mg Capsule PO 100 mg Q12HR DORA Administration Enoxaparin Sodium 40 mg 04/10/24 09:00 04/11/24 08:47 Enoxaparin 40 Mg/0.4 Ml Syringe SUB-Q 40 mg DAILY DORA Administration Fluconazole 400 mg 04/10/24 12:00 04/11/24 08:47 Fluconazole 100 Mg Tablet PO 400 mg DAILY DORA Administration Glucagon 1 mg 04/07/24 07:27 Glucagon For Inj 1 Mg Vial IM PRN PRN Hypoglycemia Protocol Glucose 15 gm 04/07/24 07:27 Glucose Oral Gel 15 Gm Of Glucse In 37.5 Gm Tube PO PRN PRN Hypoglycemia Protocol Hydromorphone HCl 1 mg 04/09/24 15:31 04/11/24 08:53 Hydromorphone Hcl Inj (*Crx) 1 Mg/Ml Syr IV PUSH 1 mg Q2H PRN Administration Breakthrough Pain Rated 7-10 or NPO Hydromorphone HCl 0.5 mg 04/09/24 15:31 Hydromorphone Hcl Inj (*Crx) 1 Mg/Ml Syr IV PUSH Q2H PRN Breakthrough Pain Rated 4-6 or NPO Dextrose 1,000 mls @ 100 mls/hr 04/07/24 07:27 Dextrose 5% 1,000 Ml IVPB PRN PRN Hypoglycemia Protocol Ceftriaxone Sodium 2 gm in 100 mls @ 200 mls/hr 04/10/24 11:00 04/11/24 08:46 Rocephin 2 Gm/Ns 100 Ml IVPB 200 mls/hr DAILY DORA Administration Vancomycin HCl 750 mg in 250 mls @ 250 mls/hr 04/10/24 14:00 04/11/24 06:07 Vancomycin 750 Mg/Ns 250 Ml IVPB 250 mls/hr Q8H DORA Administration Insulin Aspart 3 - 6 units 04/07/24 08:00 04/11/24 12:22
[2024-04-11 14:00] VITALS: BP 153/85; PULSE 108; RESP 16; TEMP 36.8; O2SAT 100
[2024-04-11] MEDS: LIDOCAINE HCL 1% PF INJ 5 ML VIAL INFILTRATE (15:45)
[2024-04-11 16:57] LABS: Glucose Point of Care 160 mg/dl (65-105)
[2024-04-11 17:07] LABS: Vancomycin Trough 15.7 ug/mL (10.0-20.0)
[2024-04-11 20:45] LABS: Glucose Point of Care 107 mg/dl (65-105)
[2024-04-11 21:01] VITALS: BP 167/98; PULSE 82; RESP 20; TEMP 36.8; O2SAT 100
[2024-04-11] MEDS: CENTRAL LINE FLUSH 10 ML IV PUSH (22:19)
[2024-04-12] MEDS: HYDROmorphone HCL INJ (*CRX) 1 MG/ML SYR IV PUSH ×3 (02:41→08:50)
[2024-04-12] MEDS: VANCOMYCIN 750 MG/NS 250 ML 750 MG/250 ML BAG 250 MG IVPB (02:41)
[2024-04-12] MEDS: CENTRAL LINE FLUSH 10 ML IV PUSH ×2 (05:20→14:35)
[2024-04-12 05:34] LABS: Basophils Percent Auto 0.2 % (0.2-1.2); Eosinophils Absolute Auto 0.1 K/mm3 (0-0.3); Eosinophils Percent Auto 2.3 % (0-4.4); Hematocrit 26.3 % (37.0-47.0); Hemoglobin 8.3 g/dL (12.0-15.0); Immature Granulocyte Absolute 0.01 K/mm3 (0.00-0.031); Immature Granulocyte Percent A 0.2 % (0-0.5); Lymphocytes Absolute Auto 1.48 K/mm3 (0.9-3.2); Lymphocytes Percent Auto 27.9 % (18.3-44.2); Mean Corpuscular HGB Conc 31.6 g/dl (32-36); Mean Corpuscular Hemoglobin 25.7 pg (26-34); Mean Corpuscular Volume 81.4 fl (80-100); Mean Platelet Volume 9.4 fl (7.4-10.4); Monocytes Absolute Auto 0.7 K/mm3 (0.1-0.6); Monocytes Percent Auto 12.2 % (2.6-8.5); Neutrophils Percent Auto 57.2 % (45.5-73.1); Platelet Count Result 266 k/mm3 (150-375); Red Blood Count 3.23 M/mm3 (4.2-5.4); White Blood Count 5.3 K/mm3 (4.5-10.0)
[2024-04-12 05:47] LABS: Alanine Aminotransferase 43 U/L (6-35); Albumin Level 3.7 g/dL (3.5-5.1); Alkaline Phosphatase 73 U/L (38-126); Anion Gap 8 mmol/L (4-12); Aspartate Amino Transferase 63 U/L (14-36); Bilirubin,Total 0.1 mg/dL (0.2-1.3); Blood Urea Nitrogen 5 mg/dL (7-17); Calcium 8.6 mg/dL (8.4-10.2); Carbon Dioxide 25 mmol/L (22-30); Chloride 101 mmol/L (98-107); Estimated CRCL calculation 49 ml/min; Estimated Glomerular Filt Rate > 60; Glucose 211 mg/dL (65-110); Magnesium 1.9 mg/dL (1.6-2.3); Potassium 4.2 mmol/L (3.4-5.0); Sodium 134 mmol/L (137-145)
[2024-04-12 06:00] VITALS: BP 163/96; PULSE 88; RESP 20; TEMP 36.8; O2SAT 100
[2024-04-12 07:46] LABS: Glucose Point of Care 190 mg/dl (65-105)
--- NOTE | 2024-04-12 07:58 | P.PNIM_ITS ---
Progress Note: A&P Assessment and Plan (1) Ectopic , tubal: Qualifiers: Intrauterine status: without intrauterine Laterality: left Qualified Code(s): O00.102 - Left tubal without intrauterine Code(s): O00.109 - Unspecified tubal without intrauterine Status: Acute Assessment and Plan: Beta hCG was positive on admission 2818. * ultrasound does not show gestational sac * POD 1 laparoscopic lateral salpingectomy with D&C and I&D of left greater toe chronic ulcer * pain medication with Percocet 5-10 mg prn * Colace BID * Pelvic rest and no heavy lifting over 15 pounds for 2 weeks. * LOT PORTER signed off. (2) Osteomyelitis: Qualifiers: Laterality: left Osteomyelitis location: foot Osteomyelitis type: unspecified type Qualified Code(s): M86.9 - Osteomyelitis, unspecified Code(s): M86.9 - Osteomyelitis, unspecified Status: Acute Assessment and Plan: Left foot x-ray shows concerns or erosion of 1st distal phalanx consistent with osteomyelitis. * Patient was started on broad-spectrum therapy with cefepime, Flagyl, vancomycin * WBC 6.9 on presentation, afebrile, lactic negative * Wound culture grew yeast * Blood cultures with no growth to date * POD 1 I&D of left greater toe diabetic ulcer * MRI ordered to osteomyelitis * If osteomyelitis is present patient will need 6 weeks of IV antibiotic therapy. Unfortunately she does not her primary care provider so we will need to defer to surgery to follow for these antibiotics. * * - picc line/mid line * - unable to do MRI as pt has metal piercing that cannot be removed * - will consult [facility] pharmacy for antibiotics and once outpt antibiotics arranged- ok to discharged (3) Septic arthritis: Code(s): M00.9 - Pyogenic arthritis, unspecified Status: Acute Assessment and Plan: X-ray imaging of the right hand shows erosions at 1st interphalangeal joint consistent with septic arthritis, although this appear chronic and not an acute issue. * Patient is on vancomycin, cefepime, Flagyl * Echocardiogram showed normal LV systolic function with an EF estimated at 60- 65%, normal LV diastolic, no concerns for vegetation * Blood cultures grew yeast * While her thumb is edematous it does not have erythema (4) Diabetes mellitus: Qualifiers: Diabetes mellitus complication detail: with foot ulcer Diabetes mellitus complication status: with skin complications Diabetes mellitus supervisor long goods insulin use: with half-way use Diabetes mellitus type: due to underlying condition Qualified Code(s): E08.621 - Diabetes mellitus due to underlying condition with foot ulcer; L97.509 - Non-pressure chronic ulcer of other part of unspecified foot with unspecified severity; Z79.4 - terminal clerk (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 Hemoglobin A1c 13.4% on admission * Patient was started on basal bolus insulin. Increasing NovoLog to 5 units t.i.d. with meals and moderate sliding scale. * Increased Lantus to 15 units HS * Fasting glucose was 151 today * A.c. HS Accu-Cheks, hypoglycemia protocol ordered, diabetic diet Plan Feeding: Diabetic diet Analgesia: Tylenol and [place] Thromboembolic prophylaxis: SCDs Glycemic control: Basal bolus Novolog, Lantus Bowel regimen: MiraLax and Colace Lines: PIV Antibiotics: Cefepime Vanc Flagyl Disposition: Patient presented after a fall was having pain to her right
--- NOTE | 2024-04-12 07:58 | PM.IMPN ---
Progress Note: A&P Assessment and Plan (1) Ectopic , tubal: Qualifiers: Intrauterine status: without intrauterine Laterality: left Qualified Code(s): O00.102 - Left tubal without intrauterine Code(s): O00.109 - Unspecified tubal without intrauterine Status: Acute Assessment and Plan: Beta hCG was positive on admission 2818. ultrasound does not show gestational sac POD 1 laparoscopic lateral salpingectomy with D&C and I&D of left greater toe chronic ulcer pain medication with Percocet 5-10 mg prn Colace BID Pelvic rest and no heavy lifting over 15 pounds for 2 weeks. SCREEN PRINTING LOADER UNLOADER signed off. (2) Osteomyelitis: Qualifiers: Laterality: left Osteomyelitis location: foot Osteomyelitis type: unspecified type Qualified Code(s): M86.9 - Osteomyelitis, unspecified Code(s): M86.9 - Osteomyelitis, unspecified Status: Acute Assessment and Plan: Left foot x-ray shows concerns or erosion of 1st distal phalanx consistent with osteomyelitis. Patient was started on broad-spectrum therapy with cefepime, Flagyl, vancomycin WBC 6.9 on presentation, afebrile, lactic negative Wound culture grew yeast Blood cultures with no growth to date POD 1 I&D of left greater toe diabetic ulcer MRI ordered to osteomyelitis If osteomyelitis is present patient will need 6 weeks of IV antibiotic therapy. Unfortunately she does not her primary care provider so we will need to defer to surgery to follow for these antibiotics. - picc line/mid line - unable to do MRI as pt has metal piercing that cannot be removed - will consult [facility] pharmacy for antibiotics and once outpt antibiotics arranged- ok to discharged (3) Septic arthritis: Code(s): M00.9 - Pyogenic arthritis, unspecified Status: Acute Assessment and Plan: X-ray imaging of the right hand shows erosions at 1st interphalangeal joint consistent with septic arthritis, although this appear chronic and not an acute issue. Patient is on vancomycin, cefepime, Flagyl Echocardiogram showed normal LV systolic function with an EF estimated at 60-65%, normal LV diastolic, no concerns for vegetation Blood cultures grew yeast While her thumb is edematous it does not have erythema (4) Diabetes mellitus: Qualifiers: Diabetes mellitus complication detail: with foot ulcer Diabetes mellitus complication status: with skin complications Diabetes mellitus half-way insulin use: with intermediate manager use Diabetes mellitus type: due to underlying condition Qualified Code(s): E08.621 - Diabetes mellitus due to underlying condition with foot ulcer; L97.509 - Non-pressure chronic ulcer of other part of unspecified foot with unspecified severity; Z79.4 - intermediate teacher (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 Hemoglobin A1c 13.4% on admission Patient was started on basal bolus insulin. Increasing NovoLog to 5 units t.i.d. with meals and moderate sliding scale. Increased Lantus to 15 units HS Fasting glucose was 151 today A.c. HS Accu-Cheks, hypoglycemia protocol ordered, diabetic diet Plan Feeding: Diabetic diet Analgesia: Tylenol and [place] Thromboembolic prophylaxis: SCDs Glycemic control: Basal bolus Novolog, Lantus Bowel regimen: MiraLax and Colace Lines: PIV Antibiotics: Cefepime Vanc Flagyl Disposition: Patient presented after a fall was having pain to her right hand and left foot. Imaging was obtained and is concerning for left foot osteomyelitis and right hand septic joint (appears chronic). She was started on broad-spectrum antibiotics. In the interim she was admitted to the medical floor with a General surgery consult. She is a type 2 diabetic with uncontrolled diabetes. Efforts will be made to obtain better glucose con
[2024-04-12] MEDS: DOCUSATE SODIUM 100 MG CAPSULE PO (08:38)
[2024-04-12] MEDS: ENOXAPARIN 40 MG/0.4 ML SYRINGE SUB-Q (08:38)
[2024-04-12] MEDS: FLUCONAZOLE 100 MG TABLET 400 MG PO (08:38)
[2024-04-12] MEDS: cefTRIAXone 2 GM/NS 100 ML 2 GM/100 ML BAG IVPB (08:38)
[2024-04-12] MEDS: polyethylene glycoL 3350 17 GM POWD.PACK PO (08:38)
--- NOTE | 2024-04-12 10:11 | P.DS_ITS ---
DS: Admitting Diagnosis Discharge Date 04/12 Admitting Diagnosis wound DS: Discharge Diagnosis Discharge Diagnosis (1) Ectopic , tubal: Qualifiers: Intrauterine status: without intrauterine Laterality: left Qualified Code(s): O00.102 - Left tubal without intrauterine Code(s): O00.109 - Unspecified tubal without intrauterine Status: Acute Assessment and Plan: Beta hCG was positive on admission 2818. * ultrasound does not show gestational sac * POD 1 laparoscopic lateral salpingectomy with D&C and I&D of left greater toe chronic ulcer * pain medication with Percocet 5-10 mg prn * Colace BID * Pelvic rest and no heavy lifting over 15 pounds for 2 weeks. * LAUNDRY MACHINE MECHANIC signed off. (2) Osteomyelitis: Qualifiers: Laterality: left Osteomyelitis location: foot Osteomyelitis type: unspecified type Qualified Code(s): M86.9 - Osteomyelitis, unspecified Code(s): M86.9 - Osteomyelitis, unspecified Status: Acute Assessment and Plan: Left foot x-ray shows concerns or erosion of 1st distal phalanx consistent with osteomyelitis. * Patient was started on broad-spectrum therapy with cefepime, Flagyl, vancomycin * WBC 6.9 on presentation, afebrile, lactic negative * Wound culture grew yeast * Blood cultures with no growth to date * POD 1 I&D of left greater toe diabetic ulcer * MRI ordered to osteomyelitis * If osteomyelitis is present patient will need 6 weeks of IV antibiotic therapy. Unfortunately she does not her primary care provider so we will need to defer to surgery to follow for these antibiotics. * * - picc line/mid line * - unable to do MRI as pt has metal piercing that cannot be removed * - will consult [facility] pharmacy for antibiotics and once outpt antibiotics arranged- ok to discharged (3) Septic arthritis: Code(s): M00.9 - Pyogenic arthritis, unspecified Status: Acute Assessment and Plan: X-ray imaging of the right hand shows erosions at 1st interphalangeal joint consistent with septic arthritis, although this appear chronic and not an acute issue. * Patient is on vancomycin, cefepime, Flagyl * Echocardiogram showed normal LV systolic function with an EF estimated at 60- 65%, normal LV diastolic, no concerns for vegetation * Blood cultures grew yeast * While her thumb is edematous it does not have erythema (4) Diabetes mellitus: Qualifiers: Diabetes mellitus complication detail: with foot ulcer Diabetes mellitus complication status: with skin complications Diabetes mellitus dedicated intermodal truck driver insulin use: with dedicated intermodal truck driver use Diabetes mellitus type: due to underlying condition Qualified Code(s): E08.621 - Diabetes mellitus due to underlying condition with foot ulcer; L97.509 - Non-pressure chronic ulcer of other part of unspecified foot with unspecified severity; 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 Hemoglobin A1c 13.4% on admission * Patient was started on basal bolus insulin. Increasing NovoLog to 5 units t.i.d. with meals and moderate sliding scale. * Increased Lantus to 15 units HS * Fasting glucose was 151 today * A.c. HS Accu-Cheks, hypoglycemia protocol ordered, diabetic diet Plan Feeding: Diabetic diet Analgesia: Tylenol and [place] Thromboembolic prophylaxis: SCDs Glycemic control: Basal bolus Novolog, Lantus Bowel regimen: MiraLax and Colace Lines: PIV Antibio
--- NOTE | 2024-04-12 10:11 | PM.DS ---
DS: Admitting Diagnosis Discharge Date 04/12 Admitting Diagnosis wound DS: Discharge Diagnosis Discharge Diagnosis (1) Ectopic , tubal: Qualifiers: Intrauterine status: without intrauterine Laterality: left Qualified Code(s): O00.102 - Left tubal without intrauterine Code(s): O00.109 - Unspecified tubal without intrauterine Status: Acute Assessment and Plan: Beta hCG was positive on admission 2818. ultrasound does not show gestational sac POD 1 laparoscopic lateral salpingectomy with D&C and I&D of left greater toe chronic ulcer pain medication with Percocet 5-10 mg prn Colace BID Pelvic rest and no heavy lifting over 15 pounds for 2 weeks. NONPROFIT FUNDRAISER signed off. (2) Osteomyelitis: Qualifiers: Laterality: left Osteomyelitis location: foot Osteomyelitis type: unspecified type Qualified Code(s): M86.9 - Osteomyelitis, unspecified Code(s): M86.9 - Osteomyelitis, unspecified Status: Acute Assessment and Plan: Left foot x-ray shows concerns or erosion of 1st distal phalanx consistent with osteomyelitis. Patient was started on broad-spectrum therapy with cefepime, Flagyl, vancomycin WBC 6.9 on presentation, afebrile, lactic negative Wound culture grew yeast Blood cultures with no growth to date POD 1 I&D of left greater toe diabetic ulcer MRI ordered to osteomyelitis If osteomyelitis is present patient will need 6 weeks of IV antibiotic therapy. Unfortunately she does not her primary care provider so we will need to defer to surgery to follow for these antibiotics. - picc line/mid line - unable to do MRI as pt has metal piercing that cannot be removed - will consult [facility] pharmacy for antibiotics and once outpt antibiotics arranged- ok to discharged (3) Septic arthritis: Code(s): M00.9 - Pyogenic arthritis, unspecified Status: Acute Assessment and Plan: X-ray imaging of the right hand shows erosions at 1st interphalangeal joint consistent with septic arthritis, although this appear chronic and not an acute issue. Patient is on vancomycin, cefepime, Flagyl Echocardiogram showed normal LV systolic function with an EF estimated at 60-65%, normal LV diastolic, no concerns for vegetation Blood cultures grew yeast While her thumb is edematous it does not have erythema (4) Diabetes mellitus: Qualifiers: Diabetes mellitus complication detail: with foot ulcer Diabetes mellitus complication status: with skin complications Diabetes mellitus mcc insulin use: with longwall headgate operator use Diabetes mellitus type: due to underlying condition Qualified Code(s): E08.621 - Diabetes mellitus due to underlying condition with foot ulcer; L97.509 - Non-pressure chronic ulcer of other part of unspecified foot with unspecified severity; Z79.4 - nursing home (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 Hemoglobin A1c 13.4% on admission Patient was started on basal bolus insulin. Increasing NovoLog to 5 units t.i.d. with meals and moderate sliding scale. Increased Lantus to 15 units HS Fasting glucose was 151 today A.c. HS Accu-Cheks, hypoglycemia protocol ordered, diabetic diet Plan Feeding: Diabetic diet Analgesia: Tylenol and [place] Thromboembolic prophylaxis: SCDs Glycemic control: Basal bolus Novolog, Lantus Bowel regimen: MiraLax and Colace Lines: PIV Antibiotics: Cefepime Vanc Flagyl Disposition: Patient presented after a fall was having pain to her right hand and left foot. Imaging was obtained and is concerning for left foot osteomyelitis and right hand septic joint (appears chronic). She was started on broad-spectrum antibiotics. In the interim she was admitted to the medical floor with a General surgery consult. She is a type 2 diabe
[2024-04-12 10:55] LABS: Vancomycin Trough 17.3 ug/mL (10.0-20.0)
[2024-04-12] MEDS: HYDROcodone/acetaminophen (*CRX) 10-325 MG TABLET 1 TAB PO ×2 (11:03→14:31)
[2024-04-12 11:53] LABS: Glucose Point of Care 167 mg/dl (65-105)
--- NOTE | 2024-04-12 15:05 | PM.PNGS ---
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 With concerns for bone involvement on Xray, will likely require 6 weeks of IV antibiotics. Surgically stable for discharge. Follow-up with Dr. Lopez in our office in 2 weeks. Walking boot given to patient for ambulation. Plan I have discussed the patient's case and plan of care with Dr. Lopez. Subjective Subjective Date/Time Seen: 04/12/24 15:05 Patient reports: no new complaints, feels better and afebrile Exam Const: General: comfortable and no acute distress Extrem: Other: Left great toe wound--scant serosanguinous drainage, no purulence or necrosis. Objective Data Vital Signs Vital Signs: Vital Signs - 24 hr 04/11/24 21:01 04/12/24 06:00 04/12/24 08:00 Temperature 98.2 F 98.3 F Pulse Rate 82 88 Respiratory Rate 20 20 Blood Pressure 167/98 H 163/96 H Pulse Oximetry 100 100 Oxygen Delivery Room Air Intake/Output Intake/Output: Intake & Output 04/09/24 04/10/24 04/11/24 04/12/24 23:59 23:59 23:59 23:59 Intake Total 3980 2504 950 6118 Output Total 1400 600 350 Balance 2580 9874 864 0868 Meds/Results Medications: Active Medications Generic Name Dose Route Start Last Admin Trade Name Freq PRN Reason Stop Dose Admin Acetaminophen 650 mg 04/06/24 03:10 04/08/24 20:45 Acetaminophen 325 Mg Tablet PO 650 mg Q4H PRN Administration Mild Pain (1-3) or Fever Hydrocodone Bitart/Acetaminophen 1 tab 04/06/24 03:10 04/09/24 07:05 Hydrocodone/Acetaminophen (*Crx) 5-325 Mg Tablet PO 1 tab Q4H PRN Administration Pain Rated 4-6 Hydrocodone Bitart/Acetaminophen 1 tab 04/09/24 15:31 04/12/24 14:31 Hydrocodone/Acetaminophen (*Crx) 10-325 Mg Tablet PO 1 tab Q4H PRN Administration Pain Rated 7-10 Dextrose 12.5 gm 04/07/24 07:27 Dextrose 50% 25 Gm/50 Ml Syringe IV PUSH PRN PRN Hypoglycemia Protocol Docusate Sodium 100 mg 04/07/24 09:00 04/12/24 08:38 Docusate Sodium 100 Mg Capsule PO 100 mg Q12HR DORA Administration Enoxaparin Sodium 40 mg 04/10/24 09:00 04/12/24 08:38 Enoxaparin 40 Mg/0.4 Ml Syringe SUB-Q 40 mg DAILY DORA Administration Fluconazole 400 mg 04/10/24 12:00 04/12/24 08:38 Fluconazole 100 Mg Tablet PO 400 mg DAILY DORA Administration Glucagon 1 mg 04/07/24 07:27 Glucagon For Inj 1 Mg Vial IM PRN PRN Hypoglycemia Protocol Glucose 15 gm 04/07/24 07:27 Glucose Oral Gel 15 Gm Of Glucse In 37.5 Gm Tube PO PRN PRN Hypoglycemia Protocol Hydromorphone HCl 1 mg 04/09/24 15:31 04/12/24 08:50 Hydromorphone Hcl Inj (*Crx) 1 Mg/Ml Syr IV PUSH 1 mg Q2H PRN Administration Breakthrough Pain Rated 7-10 or NPO Hydromorphone HCl 0.5 mg 04/09/24 15:31 Hydromorphone Hcl Inj (*Crx) 1 Mg/Ml Syr IV PUSH Q2H PRN Breakthrough Pain Rated 4-6 or NPO Dextrose 1,000 mls @ 100 mls/hr 04/07/24 07:27 Dextrose 5% 1,000 Ml IVPB PRN PRN Hypoglycemia Protocol Ceftriaxone Sodium 2 gm in 100 mls @ 200 mls/hr 04/10/24 11:00 04/12/24 08:38 Rocephin 2 Gm/Ns 100 Ml IVPB 200 mls/hr DAILY DORA Administration Vancomycin HCl 750 mg in 250 mls @ 250 mls/hr 04/11/24 18:00 04/12/24 12:07 Vancomycin 750 Mg/Ns 250 Ml IVPB Not Given Q8H DORA Insulin Aspart 3 - 6 units 04/07/
== END 2024-04-12 15:15 | disposition home or self-care (01) | DRG 547 ==
LOC: ANHED 04-06 10:31 → ANH3MEDSUR 04-06 19:31
PROVIDERS: Emergency Medicine; Nurse Practitioner Acute Care; Obstetrics & Gynecology; Physician Assistant; Surgery; Admitting Provider Internal Medicine; Emergency Provider Emergency Medicine; Visit Provider Nurse Practitioner
PROC: 0Y9N0ZZ Drainage of Left Foot, Open Approach (ICD-10-PCS; principal; 2024-04-09 12:30)
PROC: 10T24ZZ Resection of Products of Conception, Ectopic, Percutaneous Endoscopic Approach (ICD-10-PCS; CPT 49320; 2024-04-09 12:30)
PROC: 10T24ZZ Resection of Products of Conception, Ectopic, Percutaneous Endoscopic Approach (ICD-10-PCS; 2024-04-09 12:30)
DX: O00.102 Left tubal pregnancy without intrauterine pregnancy (principal); B37.9 Candidiasis, unspecified; M86.9 Osteomyelitis, unspecified; E11.621 Type 2 diabetes mellitus with foot ulcer; E11.69 Type 2 diabetes mellitus with other specified complication; L97.526 Non-pressure chronic ulcer of other part of left foot with bone involvement without evidence of necrosis; M00.841 Arthritis due to other bacteria, right hand; E11.65 Type 2 diabetes mellitus with hyperglycemia; R93.89 Abnormal findings on diagnostic imaging of other specified body structures; W08.XXXA Fall from other furniture, initial encounter; Z79.4 Long term (current) use of insulin; Z91.148 Patient's other noncompliance with medication regimen for other reason; Z87.891 Personal history of nicotine dependence
CPT/HCPCS: 36415; 36569; 73140; 73610; 73630; 76801; 76817; 80053; 80061; 80202; 81025; 82607; 82746; 82948; 83036; 83540; 83550; 83605; 83735; 84702; 85025; 85610; 85652; 85730; 86140; 86850; 86900; 86901; 87040; 87070; 87205; 87491; 87591; 88302; 88305; 93306; 96361; 96365; 96366; 96367; 96375; 99285; A9270; G0378; J0692; J0696; J1170; J1650; J1815; J1836; J2250; J2405; J2704; J3010; J3370; J7030; J7040; J7120; L2116

== ENCOUNTER 2024-06-23 12:02 | Emergency (ER) | payer OTHER, MEDICAID, SELFPAY ==
[2024-06-23 12:04] VITALS: BP 102/76; PULSE 102; RESP 16; TEMP 37.1; O2SAT 100
[2024-06-23 14:27] VITALS: BP 119/85; PULSE 86; RESP 18; TEMP 36.6; O2SAT 100
--- NOTE | 2024-06-23 14:55 | ED.DENTAL ---
HPI - Dental/Oral General Chief complaint: Dental/Oral Stated complaint: tooth pain Time Seen by Provider: 06/23/24 14:09 History of Present Illness HPI Narrative: 38-year-old female with history of a dental fracture presents emergency department for worsening dental pain over the last 3 days. Patient does report decreased p.o. intake. Patient has been taking Tylenol and ibuprofen without significant improvement. Patient does not have a dentist that she is able to follow-up with. Related Data Allergies Allergy/AdvReac Type Severity Reaction Status Date / Time blueberry Allergy Difficulty Verified 06/23/24 12:02 Breathing haloperidol [From Haldol] AdvReac Intermediate tongue Verified 06/23/24 12:02 protrusion quetiapine [From Seroquel] AdvReac Other Verified 06/23/24 12:02 Review of Systems Review of Systems: All systems reviewed & are unremarkable except as noted in HPI and below PMFSH Past Medical History Medical History Diabetes Healthy female adult Osteomyelitis Surgical History Surgical History Hx of hand surgery Right thumb reconstruction after osteomyelitis Social History Social History (Updated 04/07/24 @ 16:16 by Alexsandra Gambino APRN) Social History: Patient has 3 children. Her 2 boys were delivered via . Her daughter was vaginal delivery. Her boys live with their father. Her daughter lives with her. Her and her daughter stay at her boyfriend's brother's house. She states she is safe and has no concerns for abuse. She works 14 hour days at [employer]. She designates Spencer Barakat (cousin) as her healthcare proxy. Smoking status: Former smoker Tobacco type: cigarettes Second hand tobacco smoke exposure: Yes Alcohol intake: current Drinks per week: 1 Alcohol use details: Social drinker Substance use: current Substance use type: marijuana Other substance usage details: Marijuana, no history of IV drug use Last use: 05 april 2024 Do You Feel Safe in your Home?: Yes Lack of Transportation: No Lack of Food: Never True Current Housing: I Have Housing Concerned About Future Housing: YES Difficulty Paying Gas/Electric Bills: YES Difficulty Paying for Meds: YES Currently Unemployed: No Education: High School Diploma/GED Difficulty w/ Childcare or Family Care: No Additional living arrangements comments: She and her daughter live with her boyfriend's brother Occupation/Education: occupation Additional occupation/education comments: Works at [employer] concerns: No Exam Narrative: APPEARANCE: Uncomfortable appearing secondary to dental pain HEAD: normocephalic, atraumatic. EYES: PERRLA/EOMI, conjunctivae clear. NOSE: Normal no drainage EARS:TMS clear with good light reflex. THROAT: Pharynx clear, no exudate. NECK: Supple. No adenopathy, no masses. RESPIRATORY: Airway patent, respirations nonlabored. Clear to auscultation bilaterally, no rales, rhonchi, wheezing. CARDIOVASCULAR: Regular rate and rhythm without murmurs rubs or gallops. ABDOMINAL: Soft, nontender, nondistended, normal bowel sounds MUSCULOSKELETAL: Moves all extremities. Strength/ROM intact, No edema, No calf tenderness. NEURO: Alert. Cranial nerves II through XII intact. Grossly intact SKIN: Warm, dry. Normal Color Course Vital Signs Vital signs: Vital Signs Temperature 98.8 F 06/23/24 12:04 Pulse Rate 102 H 06/23/24 12:04 Respiratory Rate 16 06/23/24 12:04 Blood Pressure 102/76 06/23/24 12:04 Pulse Oximetry 100 06/23/24 12:04 Oxygen Delivery Room Air 06/23/24 12:04 Temperature 97.8 F 06/23/24 14:27 Pulse Rate 86 06/23/24 14:27 Respiratory Rate 18 06/23/24 14:27 Blood Pressure 119/85 06/23/24 14:27 Pulse Oximetry 100 06/23/24 14:27 Oxygen Delivery Room Air 06/23/24 12:04 MDM - Dental/Oral
[2024-06-23] MEDS: AMOXICILLIN/CLAVULANATE K 875-125 MG TAB 1 TABLET PO (15:25)
[2024-06-23] MEDS: HYDROcodone/acetaminophen (*CRX) 5-325 MG TABLET 1 TAB PO (15:25)
== END 2024-06-23 15:55 | disposition home or self-care (01) ==
PROVIDERS: Emergency Provider Emergency Medicine
DX: K02.9 Dental caries, unspecified (principal); E11.9 Type 2 diabetes mellitus without complications; Z87.891 Personal history of nicotine dependence; Z79.4 Long term (current) use of insulin
CPT/HCPCS: 99283; A9270

== ENCOUNTER 2024-12-18 09:51 | Emergency (ER) | payer OTHER, MEDICAID, SELFPAY ==
[2024-12-18 09:54] VITALS: BP 106/72; PULSE 74; RESP 18; TEMP 36.8; O2SAT 100
--- NOTE | 2024-12-18 10:03 | ED_ITS ---
HPI - Dental/Oral General Chief complaint: Dental/Oral Stated complaint: dental pain Time Seen by Provider: 12/18/24 09:53 History of Present Illness HPI Narrative: 39-year-old female presenting to the emergency department today with dental pain. She has previous dental caries and over 2 days ago she knows that she had a dental fracture in the left posterior maxillary premolar area. [place] a crack while she was eating food. She has pain with cold and sweet foods and liquids. She has tried stopping it with gauze to relieve the pain. Tried topical Orajel and Tylenol without relief. No trismus or difficulty opening her jaw. No difficulty tolerating secretions. No phonation changes. No swelling in the neck or jaw. No facial swelling or vision trouble. Teeth map: 2 1. Dental fracture with dental caries Related Data Allergies Allergy/AdvReac Type Severity Reaction Status Date / Time blueberry Allergy Difficulty Verified 12/18/24 10:02 Breathing haloperidol (From Haldol) AdvReac Intermediate tongue Verified 12/18/24 10:02 protrusion quetiapine (From Seroquel) AdvReac Other Verified 12/18/24 10:02 PENDING SALE TO [facility] Past Medical History Medical History Diabetes Healthy female adult Osteomyelitis Surgical History Surgical History Hx of hand surgery Right thumb reconstruction after osteomyelitis Social History Social History (Updated 04/07/24 @ 16:16 by Alexsandra Gambino, PUBLIC RELATIONS DIRECTOR) Social History: Patient has 3 children. Her 2 boys were delivered via C- section. Her daughter was vaginal delivery. Her boys live with their father. Her daughter lives with her. Her and her daughter stay at her boyfriend's brother's house. She states she is safe and has no concerns for abuse. She works 14 hour days at [employer]. She designates Spencer Barakat (cousin) as her healthcare proxy. Smoking status: Former smoker Tobacco type: cigarettes Second hand tobacco smoke exposure: Yes Alcohol intake: current Drinks per week: 1 Alcohol use details: Social drinker Substance use: current Substance use type: marijuana Other substance usage details: Marijuana, no history of IV drug use Last use: 05 april 2024 Do You Feel Safe in your Home?: Yes Lack of Transportation: No Lack of Food: Never True Current Housing: I Have Housing Concerned About Future Housing: YES Difficulty Paying Gas/Electric Bills: YES Difficulty Paying for Meds: YES Currently Unemployed: No Education: High School Diploma/GED Difficulty w/ Childcare or Family Care: No Additional living arrangements comments: She and her daughter live with her boyfriend's brother Occupation/Education: occupation Additional occupation/education comments: Works at [employer] concerns: No Exam 2 Narrative: GENERAL: Tearful but not any acute distress HEAD: [Normocephalic, atraumatic.] EYES: [PERRLA and EOMI.] ENT: Nares clear, no rhinorrhea or epistaxis. Mucous membranes moist. Dental fracture with dental caries noted over tooth 16. No periapical abscess, no fluctuance. Tenderness palpation and percussion. NECK: Supple. CHEST: [Clear to auscultation. No respiratory distress.] HEART: [Regular rate and rhythm]. No murmur heard. [Normal peripheral pulses.] ABDOMEN: [Soft, nondistended], [nontender], [No rigidity or guarding] EXTREMITIES: Normal range of motion. [No edema.] SKIN: Warm, dry, no rash. NEURO: [No focal deficits]. Alert and oriented [x3.] PSYCH: [Normal mood and affect.] Course Vital Signs Vital signs: Vital Signs Temperature 36.8 C 12/18/24 09:54 Pulse Rate 74 12/18/24 09:54 Respiratory Rate 18 12/18/24 09:54 Blood Pressure 106/72 12/18/24 09:54 Pulse Oximetry 100 12/18/24 09:54 Temperature 36.8 C 12/18/24 09:54 Pulse Rate 74 12/18/24 09:54 Respiratory Rate 18 12/18/24 09:54 Blood Pressure 106/72 12/18/24 09:54 Pulse Oximetry 100 12/18/24 09:54 Procedures Nerve Block Nerve Block 1: Nerve block date: 12/26/24 Nerve block time: 10:18 Local Anesthetic: bupivacaine 0.5% Amount of anesthesia used (mL): 3 Side: left Intraoral Nerve Block: other (Superior posterior alveolar nerve block) Procedure Successful: Yes Patient Tolerated Procedure: well and no complications Complications: none MDM - Dental/Oral MDM Narrative Medical decision making narrative: 39-year-old female presenting with dental trauma and dental pain. She bit something hard 2 days ago and felt a crack in her left side maxillary tooth 16. Has evidence of a dental fracture dental caries. Patient is hemodynamic stable vitals and not any acute distress. She is afebrile. No jaw swelling or pear apical abscess. No fluctuance. Tenderness with percussion and with certain foods. Patient was given Toradol and a superior posterior alveolar nerve block was conducted with analgesia achieved. Patient was given Augmentin and discharged home with a prescription for [place] and Augmentin. She will follow-up with dentistry. Medical Records Attestation: I reviewed the patient's medical records. Discharge Plan Discharge Clinical Impression: Fracture of tooth, Dental caries Patient Disposition: Home, Self-Care Condition: Stable Instructions: Antibiotic Form, Acute Dental Trauma (ED), Toothache (ED) Additional Instructions: You will have to follow-up with a dentist regarding her dental fracture. We have given your nerve block and pain medicines. We will send you home with antibiotics and pain medicines. Return with any new or worsening concerns but you do need to see a dentist for definitive care. Patient Language: Scottish Prescriptions: No Action insulin degludec [Tresiba FlexTouch U-200] 200 unit/mL (3 mL) insulin pen 18 unit subcut HS Qty: 9 0RF doxycycline monohydrate 100 mg capsule 100 mg PO BID Qty: 80 0RF fluconazole 200 mg tablet 200 mg PO DAILY Qty: 80 0RF Baqsimi 3 mg/actuation spray,non-aerosol 3 mg intranasal ONCE Qty: 2 0RF Rx Instructions: as a single dose hydrocodone-acetaminophen 5-325 mg Tablet 1 tablet PO Q4-6H PRN (Reason: Pain Rated 4-6) Qty: 20 0RF amoxicillin-pot clavulanate 875-125 mg tablet 1 tablet PO Q12H Qty: 14 0RF hydrocodone-acetaminophen 5-325 mg tablet 1 tablet PO Q8H PRN (Reason: pain) Qty: 14 0RF Follow-up/Referrals: PHYSICIAN,CONSULTING BUSINESS DEVELOPER [Primary Care Provider] -
[2024-12-18] MEDS: AMOXICILLIN/CLAVULANATE K 875-125 MG TAB 1 TABLET PO (10:31)
[2024-12-18] MEDS: KETOROLAC 30 MG/ML VIAL (*BKC) IM (10:31)
--- OUTSIDE RECORDS SUMMARY | 2024-12-18 11:16 | XMS_ITS | Clinical Summary ---
Author Organization [facility] Address [address] [place] [address] Care Team Providers Care Manager Medicare Name Role Phone Unavailable Primary Care Provider Unavailabl e Source Comments [facility],non-owned Affiliates and Associated Physician Practices is amultiple site organization consisting of ambulatory clinics and hospital sitesin [place], [place], [place] and [place]. This disclosure is being madepursuant to the Care Everywhere program and may not contain all information available regarding this patient. Last updated 18.[employer] Allergies Active Allergy Reactions Criticality Noted Date Comments Blueberry Flavor Anaphylaxis 01/05/2010 Quetiapine Other 08/03/2021 Medications * Be aware that medications may not be up to date on this document. Alwaysverify current medications with the patient. Medication Sig Dispensed Refills Start Date End Date Status promethazine (PHENERGAN) 25 MG tablet Take 1 Tab by mouth every 6 hours as needed for Nausea/Vomiting. 10 Tab 0 03/11/2013 Active metFORMIN (GLUCOPHAGE) 500 MG tablet Take 500 mg by mouth 2 times daily with morning and evening meal Active naproxen (NAPROSYN) 500 MG tablet Take 1 tablet by mouth 2 times daily 24 tablet 08/08/2019 Active insulin NPH (HUMULIN N; NOVOLIN N) vial Active ondansetron (ZOFRAN) 4 MG tablet Take 1 (one) tablet by mouth every 6 hours as needed for Nausea/Vomiting 10 tablet 08/03/2021 Active acetaminophen (Tylenol) 500 MG tablet Take 1 (one) tablet by mouth every 4 hours as needed for Fever or Pain Maximum allowable Acetaminophen amount = 4 Grams (4000 mg) / 24 hours. 20 tablet 05/19/2024 Active ibuprofen (Motrin) 600 MG tablet Take 1 (one) tablet by mouth every 6 hours as needed for Pain 30 tablet 05/19/2024 Active metoclopramide (Reglan) 10 MG tablet Take 0.5 (one-half) tablet by mouth 3 times daily before meals 10 tablet 05/19/2024 Active Active Problems Problem Noted Date Diagnosed Date Diabetic ketoacidosis withou t coma associated with type 1 diabetes mellitus 05/01/2021 Social History Tobacco Use Types Packs/Day Years Used Date Smoking Tobacco: Former Cigarettes Smokeless Tobacco: Former Tobacco Cessation:Counseling Given: Not Answered Alcohol Use Standard Drinks/Week Comments Not Currently 0 (1 standard drink = 0.6 oz pur e alcohol) AUDIT-C Answer Date Recorded Q1: How often do you have a drink containing alc ohol? Monthly or less 07/29/2022 Q2: How many drinks containi ng alcohol do you have on a typical day when you are drinking? 1 or 2 07/29/2022 Q3: How often do you have si x or more drinks on one occasion? Never 07/29/2022 Sex and Gender Information Value Date Recorded Sex Assigned at Not on file Gender Identity Not on file Sexual Orientation Not on file Last Filed Vital Signs Vital Sign Reading Time Taken Comments Blood Pressure 115/77 05/19/2024 12:37 PM CDT Pulse 87 05/19/2024 12:37 PM CDT Temperature 37 C (98.6 F) 05/19/2024 12:37 PM CDT Respiratory Rate 20 05/19/2024 12:37 PM CDT Oxygen Saturation 99% 05/19/2024 12:37 PM CDT Inhaled Oxygen Concentration - - Weight 58.5 kg (129 lb) 05/19/2024 12:37 PM CDT Height 167.6 cm (5' 6 ) 05/19/2024 12:37 PM CDT Body Mass Index 20.82 05/19/2024 12:37 PM CDT Plan of Treatment Health Maintenance Due Date Last Done Comments PAP SMEAR 1986 HIV SCREENING 2001 HEPATITIS C SCREENING 09/19/2004 DTAP/TDAP/TD VACCINES (1 - Tdap) 2005 HEPATITIS B VACCINE (1 of 3 - 19+ 3-dose series) 2005 PNEUMOCOCCAL VACCINE (1 of 2 - PCV) 2005 COVID-19 VACCINE (2 - 2023-2 5 season) 2024 07/02/2021 INFLUENZA VACCINE (#1) 2024 DEPRESSION SCREENING 09/26/2024 ZOSTER VACCINE (1 of 2) 2036 HIB VACCINE Aged Out No longer eligi ble based on patient's age to complete this topic HPV VACCINE Aged Out No longer eligi ble based on patient's age to complete this topic MENINGOCOCCAL (Group B) VACC INE SHARED DECISION-MAKING Aged Out No longer eligibl e based on patient's age to complete this topic MENINGOCOCCAL GROUPS A/C/Y/W VACCINE Aged Out No longer eligible b ased on patient's age to complete this topic Advance Directives * Full Code (Latest Code Status on File) Date Activated Date Inactivated Comments 05/01/2021 5:10 PM 05/03/2021 12:18 AM
--- OUTSIDE RECORDS SUMMARY | 2024-12-18 12:26 | XMS_ITS | Clinical Summary ---
Author Organization [facility] Address [address] [place] [address] Care Team Providers Care Vegetable Washer Name Role Phone Unavailable Primary Care Provider Unavailabl e Source Comments [facility],non-owned Affiliates and Associated Physician Practices is amultiple site organization consisting of ambulatory clinics and hospital sitesin [place], [place], [place] and [place]. This disclosure is being madepursuant to the Care Everywhere program and may not contain all information available regarding this patient. Last updated 18.[employer] Allergies Active Allergy Reactions Criticality Noted Date [...]
== END 2024-12-18 10:36 | disposition home or self-care (01) ==
LOC: ANHED 10:34
PROVIDERS: Emergency Provider Student in an Organized Health Care Education/Training Program
DX: K03.81 Cracked tooth (principal); K02.9 Dental caries, unspecified; E11.9 Type 2 diabetes mellitus without complications; Z87.891 Personal history of nicotine dependence; Z79.4 Long term (current) use of insulin
CPT/HCPCS: 64400; 64999; 96372; 99283; A9270; J1885

== ENCOUNTER 2025-06-10 18:56 | Emergency (ER) | payer SELFPAY ==
[2025-06-10] VITALS (22 sets, daily range): BP systolic 134–161; BP diastolic 81–97; PULSE 77–113; RESP 15–27; TEMP 36.3; O2SAT 98–100
--- NOTE | ~2025-06-10 | XR_ITS ---
EXAM/PROCEDURE: XR abdomen obstructive series - 06/10/2025 21:30 CDT HISTORY: 39 years old Female with poss SBO COMPARISON: None available. TECHNIQUE: AP view(s) of the abdomen. FINDINGS: The bowel gas pattern is normal. There is no evidence for obstruction. No free intraperitoneal air is identified on this supine radiograph. The visualized soft tissue shadows are unremarkable. No gross bony abnormalities are seen. Cholecystectomy clips are seen. Visualized portions of lung bases are clear. IMPRESSION: No acute process. Reviewed, dictated and finalized at location N. IMPRESSION: No acute process.
--- NOTE | ~2025-06-10 | CT_ITS ---
CT abdomen pelvis w con Clinical History: abd pain, n/v . Comparison: Abdominal x-ray today CT abdomen and pelvis 11/23/2023 Technique: Axial images lung bases to symphysis pubis 100 mL Omnipaque 350 Coronal, sagittal reformats CT images acquired with automatic exposure control for dose reduction DLP: 203 mGy-cm Findings: Lung bases: Clear. Visualized heart and pericardium: Unremarkable. Liver: Unremarkable. Gallbladder: Removed. Spleen: Unremarkable. Pancreas: Unremarkable. Adrenal glands: Unremarkable. Kidneys: Right kidney- No hydronephrosis. No renal stones. Left kidney- No hydronephrosis. No renal stones. Distal esophagus/stomach: Small hiatal hernia. Small bowel loops: Normal caliber and wall thickness. Colon: Normal caliber and wall thickness. Appendix not identified. Nodes: No enlarged nodes. Peritoneum: No ascites. No free air. Urinary bladder: Unremarkable. Uterus: Unremarkable. Adnexa: No masses. Bones: No acute bony abnormality. Soft tissues: Unremarkable. Aorta: No aneurysm or dissection. IVC: Unremarkable. Main portal vein/SMV/splenic vein: Patent. IMPRESSION: 1. No acute findings. Reviewed, dictated and finalized at location R. IMPRESSION: 1. No acute findings.
--- OUTSIDE RECORDS SUMMARY | 2025-06-10 19:26 | XMS_ITS | Clinical Summary ---
Author Organization [facility] Address [address] [place] [address] Care Team Providers Care Raw Scales Operator Name Role Phone Unavailable Primary Care Provider Unavailabl e Source Comments [facility],non-owned Affiliates and Associated Physician Practices is amultiple site organization consisting of ambulatory clinics and hospital sitesin [place], [place], [place] and [place]. This disclosure is being madepursuant to the Care Everywhere program and may not contain all informatio navailable regarding this patient. Last updated 18.[facility] Allergies Active Allergy Reactions Criticality Noted Date Comments Blueberry Flavor Anaphylaxis 01/05/2010 Quetiapine Other 08/03/2021 Medications * This document contains information received from the source organization and may not represent a complete record from that organization. * Be aware that medications may not be up to date on this document. Alwaysverify current medications with the patient. promethazine (PHENERGAN) 25 MG tablet Take 1 Tab by mouth every 6 hours as needed for Nausea/Vomiting. 10 Tab 0 3 Active metFORMIN (GLUCOPHAGE) 500 MG tablet Take 500 mg by mouth 2 times daily with morning and evening meal Active naproxen (NAPROSYN) 500 MG tablet Take 1 tablet by mouth 2 times daily 24 tablet 9 Active insulin NPH (HUMULIN N; NOVOLIN N) vial Active ondansetron (ZOFRAN) 4 MG tablet Take 1 (one) tablet by mouth every 6 hours as needed for Nausea/Vomiting 10 tablet 1 Active acetaminophen (Tylenol) 500 MG tablet Take 1 (one) tablet by mouth every 4 hours as needed for Fever or Pain Maximum allowable Acetaminophen amount = 4 Grams (4000 mg) / 24 hours. 20 tablet 4 Active ibuprofen (Motrin) 600 MG tablet Take 1 (one) tablet by mouth every 6 hours as needed for Pain 30 tablet 4 Active metoclopramide (Reglan) 10 MG tablet Take 0.5 (one-half) tablet by mouth 3 times daily before meals 10 tablet 4 Active Active Problems Problem Noted Date Diagnosed [...] more drinks on one occasion? Never 07/29/2022 Comments No Sex and Gender Information Value Date Recorded Sex Assigned at Not on file Legal Sex Female 6:32 AM [employer] Gender Identity Not on file Sexual Orientation [...] 12:37 PM CDT Height 167.6 cm (5' 6) 05/19/2024 12:37 PM CDT Body Mass Index 20.82 05/19/2024 12:37 PM CDT Plan of Treatment Health Maintenance Due Date Last Done Comments HIV SCREENING 2001 HEPATITIS C SCREENING 09/19/2004 DTAP/TDAP/TD VACCINES (1 - Tdap) 2005 HEPATITIS B VACCINE (1 of 3 - 19+ 3-dose series) 2005 PNEUMOCOCCAL VACCINE (1 of 2 - PCV) 2005 PAP SMEAR 2007 HPV VACCINE (1 - 3-dose SCDM series) 2013 DEPRESSION SCREENING 09/26/2024 COVID-19 VACCINE (2 - 2024-2 6 season) 2025 07/02/2021 INFLUENZA VACCINE (#1) 2025 ZOSTER VACCINE (1 of 2) 2036 HIB VACCINE Aged Out No longer eligi ble based on patient's age to complete this topic MENINGOCOCCAL (Group B) VACC INE SHARED DECISION-MAKING Aged Out No longer eligibl e based on patient's age to complete this topic MENINGOCOCCAL GROUPS A/C/Y/W VACCINE Aged Out No longer eligible b ased on patient's age to complete this topic Insurance [place] MEDICAID HOME STATE HE[employer] PLAN [facility] INDIVIDUAL EXCHANGE BENEFIT PLAN [place] * Guarantor: MABEL CURRIE Account Type Relation to Patient Date of Phone Billing Address Personal/Family [address] [place] [address] SELF PAY NO INSURANCE Member Subscriber Plan / Payer (Ef fective for All Dates) Name:Mabel Mayes Member ID:Not on file Relation to Subscriber:Not on file Name:MABEL CURRIE Subscriber ID:Not on file Address: [address] [place], [place] [id number] Payer ID:Not on file Group ID:Not on file Type:Self Pay Address: [place], [place] * Guarantor: MABEL CURRIE Account Type Relation to Patient Date of Phone Billing Address Personal/Family [address] [place] [address] SELF PAY NO INSURANCE Member Subscriber Plan / Payer (Ef fective for All Dates) Name:Mabel Mayes Member ID:Not on file Relation to Subscriber:Not on file Name:MABEL CURRIE Subscriber ID:Not on file Address: [address] Payer ID:Not on file Group ID:Not on file Type:Self Pay Address: [place], [place] * Guarantor: MABEL CURRIE Account Type Relation to Patient Date of Phone Billing Address Personal/Family [address] [place] [address] SELF PAY NO INSURANCE Member Subscriber Plan / Payer (Ef fective for All Dates) Name:Mabel Mayes Member ID:Not on file Relation to Subscriber:Not on file Name:MABEL CURRIE Subscriber ID:Not on file Address: [address] [place], [place] [id number] Payer ID:Not on file Group ID:Not on file Type:Self Pay Address: [place], [place] * Guarantor: MABEL CURRIE Account Type Relation to Patient Date of Phone Billing Address Personal/Family 1985 [facility] [address] Advance Directives * Full Code (Latest Code Status on File) Date Activated Date Inactivated Comments 05/01/2021 5:10 PM 05/03/2021 12:18 AM
[2025-06-10] MEDS: SODIUM CHLORIDE 0.9% IV 1,000 ML 999 ML IV CONT ×2 (20:42→23:35)
--- NOTE | 2025-06-10 20:42 | ED_ITS ---
HPI - Nausea/Vomiting/Diarrhea General Chief complaint: Nausea/Vomiting/Diarrhea Stated complaint: vomiting Time Seen by Provider: 06/10/25 20:33 Source: patient Mode of arrival: ambulatory Limitations: no limitations History of Present Illness HPI Narrative: This is a 39-year-old female with history of type 1 diabetes who presents the ED for nausea, vomiting, abdominal pain. Patient states for the past 3 days, she has been having vomiting in the bed in a metal to tolerate solids or liquids. She has had too many episodes of emesis to count. She has not been able to sleep due to this. She has also been having diffuse abdominal pain. She has also been having some intermittent diarrhea. Denies fevers, chills, chest pain, shortness of breath, rashes, changes in urination. Related Data Allergies Allergy/AdvReac Type Severity Reaction Status Date / Time blueberry Allergy Difficulty Verified 06/10/25 19:19 Breathing haloperidol (From Haldol) AdvReac Intermediate tongue Verified 06/10/25 19:19 protrusion quetiapine (From Seroquel) AdvReac Other Verified 06/10/25 19:19 Review of Systems 2 Review of Systems: Gen.: Denies fevers or chills Eyes: Denies eye pain or visual change ENT: Denies congestion Respiratory: Denies shortness of breath or cough CV: Denies chest pain or palpitations GI: As per HPI denies burning, urgency, frequency or hematuria Musculoskeletal: Denies back pain or muscle pain Neuro: Denies numbness, tingling, weakness or focal weakness Skin: Denies rash Except as documented, all other systems reviewed and negative [facility] Past Medical History Medical History Osteomyelitis Diabetes Healthy female adult Surgical History Surgical History Hx of hand surgery Right thumb reconstruction after osteomyelitis Social History Social History Social History: Patient has 3 children. Her 2 boys were delivered via C- section. Her daughter was vaginal delivery. Her boys live with their father. Her daughter lives with her. Her and her daughter stay at her boyfriend's brother's house. She states she is safe and has no concerns for abuse. She works 14 hour days at [employer]. She designates Spencer Barakat (cousin) as her healthcare proxy. Smoking status: Former smoker Tobacco type: cigarettes Second hand tobacco smoke exposure: Yes Alcohol intake: current Drinks per week: 1 Alcohol use details: Social drinker Substance use: current Substance use type: marijuana Other substance usage details: Marijuana, no history of IV drug use Last use: 05 april 2024 Do You Feel Safe in your Home?: Yes Lack of Transportation: No Lack of Food: Never True Current Housing: I Have Housing Concerned About Future Housing: YES Difficulty Paying Gas/Electric Bills: YES Difficulty Paying for Meds: YES Currently Unemployed: No Education: High School Diploma/GED Difficulty w/ Childcare or Family Care: No Additional living arrangements comments: She and her daughter live with her boyfriend's brother Occupation/Education: occupation Additional occupation/education comments: Works at [employer] concerns: No Exam 2 Narrative: APPEARANCE: Actively vomiting EYES: EOMI HEENT: Normocephalic, atraumatic, OMM RESPIRATORY: No respiratory distress Clear to auscultation bilaterally with no rhonchi wheezing or rales. CARDIOVASCULAR: Regular rate and rhythm without murmurs rubs or gallops. ABDOMINAL: Soft, mild diffuse tenderness to palpation without rebound or guarding MUSCULOSKELETAl: Moves all extremities. No clubbing, cyanosis or edema. NEURO: Awake and alert. Following commands, speech normal, no focal deficits SKIN:: Warm, dry. No rashes lesions or abrasions PSYCHIATRIC: Normal affect/mood, Course Vital Signs Vital signs: Vital Signs Temperature 97.4 F L 06/10/25 19:20 Pulse Rate 102 H 06/10/25 19:20 Respiratory Rate 16 06/10/25 19:20 Blood Pressure 151/93 H 06/10/25 19:20 Pulse Oximetry 98 06/10/25 19:20 Oxygen Delivery Room Air 06/10/25 19:20 Temperature 97.4 F L 06/10/25 19:20 Pulse Rate 84 06/11/25 01:46 Respiratory Rate 21 H 06/11/25 01:46 Blood Pressure 126/70 06/11/25 01:46 Pulse Oximetry 100 06/10/25 21:15 Oxygen Delivery Room Air 06/10/25 19:20 MDM - Nausea/Vomiting/Diarrhea MDM Narrative Medical decision making narrative: 39-year-old female that presents to the ED for nausea, vomiting, abdominal pain. On initial evaluation, patient was actively vomiting, afebrile, hemodynamically stable. She had diffuse tenderness to palpation but no rebound or guarding. She had a leukocytosis of 14.8 and mild anemia at 10.8. She had mildly elevated creatinine of 1.12. Glucose was elevated at 320. No anion gap. UA consistent with a UTI. Patient was given Zofran and Reglan with no improvement of her symptoms. Because she continued to have symptoms, CT abdomen/pelvis was obtained. This showed no acute process. After patient was given Haldol, she did have significant improvement of her symptoms. UDS was positive for cannabinoids. Suspect that patient does have cannabinoid hyperemesis. She will be given prescriptions for Zofran and Keflex. She was advised follow-up with her PCP the next week for evaluation. Patient was agreeable to this plan. Given strict return precautions. Differential Diagnosis Differential diagnosis: Likely gastroenteritis, drug-induced nausea and vomiting, dehydration and other (DKA, HHS) Medical Records Attestation: I reviewed the patient's medical records. Lab Data Attestation: I reviewed the patient's lab results. 06/10/25 20:43 06/10/25 20:43 Labs: Lab Results 06/10/25 06/10/25 06/10/25 Range/Units 20:29 20:43 20:52 WBC 14.8 H (4.5-10.0) K/mm3 RBC 4.21 (4.2-5.4) M/mm3 Hgb 10.8 L (12.0-15.0) g/dL Hct 34.6 L (37.0-47.0) % MCV 82.2 (80-100) fl MCH 25.7 L (26-34) pg MCHC 31.2 L (32-36) g/dl RDW 18.0 H (11.5-14.5) % Plt Count 364 (150-375) k/mm3 MPV 9.6 (7.4-10.4) fl Immature Gran % (Auto) 0.3 (0-0.5) % Neut % (Auto) 86.1 H (45.5-73.1) % Lymph % (Auto) 6.1 L (18.3-44.2) % [place] % (Auto) 6.3 (2.6-8.5) % Eos % (Auto) 0.9 (0-4.4) % Baso % (Auto) 0.3 (0.2-1.2) % Lymph # (Auto) 0.91 (0.9-3.2) K/mm3 [place] # (Auto) 0.9 H (0.1-0.6) K/mm3 Eos # (Auto) 0.1 (0-0.3) K/mm3 Baso # (Auto) 0.0 (0.0-0.1) K/mm3 Abs Immat Gran (auto) 0.04 H (0.00-0.031) K/mm3 Absolute Neuts (auto) 12.8 H (1.3-6.7) K/mm3 Absolute Nucleated RBC 0.000 (0.0-0.012) K/mm3 Nucleated RBC % 0.0 (0.0-0.2) % Sodium 139 (137-145) mmol/L Potassium 4.3 (3.4-5.0) mmol/L Chloride 106 (98-107) mmol/L Carbon Dioxide 22 (22-30) mmol/L Anion Gap 11 (4-12) mmol/L BUN 15 D (7-17) mg/dL Creatinine 1.12 H (0.7-1.0) mg/dL Estim Creat Clear Calc 43 ml/min Estimated GFR 54 L (59 - ) Glucose 320 H (65-110) mg/dL POC Capillary Glucose 316 H (65-105) mg/dl Calcium 9.7 (8.4-10.2) mg/dL Total Bilirubin 0.6 (0.2-1.3) mg/dL AST 32 (14-36) U/L ALT 19 (6-35) U/L Alkaline Phosphatase 121 (38-126) U/L Total Protein 9.0 H (6.3-8.2) g/dL Albumin 4.9 (3.5-5.1) g/dL Beta-Hydroxybutyrate/Acetoacetate 1.11 H (0.02-0.27) mmol/L Urine Color Yellow (Yellow) Urine Appearance Clear (Clear) Urine pH 5.5 (5.0-9.0) Ur Specific [place] 1.026 (1.001-1.035) Urine Protein 2+ H (Negative) mg/dL Urine Glucose (UA) 3+ H (Negative) mg/dL Urine Ketones 1+ H (Negative) mg/dL Ur Blood (Man) 1+ H (Negative) Urine Nitrate Positive H (Negative) Urine Bilirubin Negative (Negative) Urine Urobilinogen 0.2 (<2.0) mg/dL Leukocyte Esterase Rfl Negative (Negative) ZANE/UL Urine RBC 0-2 (0-2) /hpf Urine WBC 0-5 (0-3) /hpf Ur Squamous Epith Cells Occasional (Few) /hpf Urine Bacteria 4+ H /hpf Urine Casts 0-2 Urine Test Negative Urine Opiates Screen Negative (Negative) Urine Methadone Screen Negative (Negative) Ur Barbiturates Screen Negative (Negative) Ur Phencyclidine Scrn Negative (Negative) Ur Amphetamine Screen Negative (Negative) U Benzodiazepines Scrn Negative (Negative) Urine Cocaine Screen Negative (Negative) U Cannabinoids Screen Positive A (Negative) Imaging Data Attestation: I personally reviewed and interpreted this imaging study as follows: Radiologist's impression: CT abdomen/pelvis: No acute process Discharge Plan Discharge Clinical Impression: Cannabinoid hyperemesis syndrome UTI (urinary tract infection) Qualifiers: Urinary tract infection type: site unspecified Hematuria presence: without hematuria Qualified Code(s): N39.0 - Urinary tract infection, site not specified Patient Disposition: Home Condition: Stable Instructions: Antibiotic Form, Cyclic Vomiting Syndrome (ED) Additional Instructions: Take Zofran as prescribed. You should stop using cannabis as this is likely the cause of her symptoms. Follow-up with your PCP in the next week for re- evaluation. Return the ED for any new or worsening symptoms. Patient Language: [place] Prescriptions: New cephalexin 500 mg capsule 500 mg PO Q12H 7 Days Qty: 14 0RF ondansetron 4 mg tablet,disintegrating 4 mg PO Q8H PRN (Reason: nausea and vomiting) Qty: 14 0RF No Action insulin degludec [Tresiba FlexTouch U-200] 200 unit/mL (3 mL) insulin pen 18 unit subcut HS Qty: 9 0RF doxycycline monohydrate 100 mg capsule 100 mg PO BID Qty: 80 0RF fluconazole 200 mg tablet 200 mg PO DAILY Qty: 80 0RF Baqsimi 3 mg/actuation spray,non-aerosol 3 mg intranasal ONCE Qty: 2 0RF Rx Instructions: as a single dose hydrocodone-acetaminophen 5-325 mg Tablet 1 tablet PO Q4-6H PRN (Reason: Pain Rated 4-6) Qty: 20 0RF amoxicillin-pot clavulanate 875-125 mg tablet 1 tablet PO Q12H Qty: 14 0RF hydrocodone-acetaminophen 5-325 mg tablet 1 tablet PO Q8H PRN (Reason: pain) Qty: 14 0RF hydrocodone-acetaminophen 5-325 mg tablet 1 tablet PO Q8H PRN (Reason: pain) Qty: 14 0RF amoxicillin-pot clavulanate 875-125 mg tablet 1 tablet PO Q12H 7 Days Qty: 14 0RF Follow-up/Referrals: PHYSICIAN NOT ON STAFF,NONSTAFF [Primary Care Provider]
[2025-06-10] MEDS: ONDANSETRON INJ 4 MG/2 ML VIAL IV PUSH (20:43)
[2025-06-10 20:50] LABS: Hematocrit 34.6 % (37.0-47.0); Hemoglobin 10.8 g/dL (12.0-15.0); Immature Granulocyte Percent A 0.3 % (0-0.5); Lymphocytes Absolute Auto 0.91 K/mm3 (0.9-3.2); Mean Corpuscular HGB Conc 31.2 g/dl (32-36); Mean Corpuscular Hemoglobin 25.7 pg (26-34); Mean Corpuscular Volume 82.2 fl (80-100); Nucleated Red Blood Cells Absolute Auto 0.000 K/mm3 (0.0-0.012); Nucleated Red Blood Cells Perc 0.0 % (0.0-0.2); Platelet Count Result 364 k/mm3 (150-375); Red Blood Count 4.21 M/mm3 (4.2-5.4); White Blood Count 14.8 K/mm3 (4.5-10.0)
[2025-06-10] MEDS: KETOROLAC 30 MG/ML VIAL (*BKC) IV PUSH (20:54)
[2025-06-10 21:02] LABS: Alanine Aminotransferase 19 U/L (6-35); Albumin Level 4.9 g/dL (3.5-5.1); Alkaline Phosphatase 121 U/L (38-126); Anion Gap 11 mmol/L (4-12); Aspartate Amino Transferase 32 U/L (14-36); Bilirubin,Total 0.6 mg/dL (0.2-1.3); Blood Urea Nitrogen 15 mg/dL (7-17); Calcium 9.7 mg/dL (8.4-10.2); Carbon Dioxide 22 mmol/L (22-30); Chloride 106 mmol/L (98-107); Estimated CRCL calculation 43 ml/min; Estimated Glomerular Filt Rate 54; Glucose 320 mg/dL (65-110); Potassium 4.3 mmol/L (3.4-5.0); Sodium 139 mmol/L (137-145); Total Protein 9.0 g/dL (6.3-8.2)
[2025-06-10 21:08] LABS: Beta-Hydroxybutyrate/Acetoace. 1.11 mmol/L (0.02-0.27)
[2025-06-10 21:09] LABS: Add Urine Microscopic? YES; Appearance Urine Clear (Clear); Glucose Urine UA 3+ mg/dL (Negative); Leukocyte Esterase Ur Negative LEU/UL (Negative); Nitrate Urine Positive (Negative); Non Pathogenic Casts 0-2; Specific Grav Ur 1.026 (1.001-1.035)
[2025-06-10 21:13] LABS: Pregnancy On Board Control Positive
[2025-06-10] MEDS: METOCLOPRAMIDE HCL INJ 10 MG/2 ML VIAL IV PUSH (21:14)
[2025-06-10 21:17] LABS: Cannabinoid Screen Urine Positive (Negative)
[2025-06-10] MEDS: HALOPERIDOL LACTATE 5 MG/ML VIAL IV PUSH (22:25)
[2025-06-11] VITALS (9 sets, daily range): BP systolic 126–159; BP diastolic 69–98; PULSE 83–90; RESP 17–25
[2025-06-11] MEDS: SODIUM CHLORIDE 0.9% IV 1,000 ML 999 ML IV CONT (01:23)
== END 2025-06-11 02:34 | disposition home or self-care (01) ==
PROVIDERS: Emergency Provider Student in an Organized Health Care Education/Training Program
DX: R11.10 Vomiting, unspecified (principal); F12.920 Cannabis use, unspecified with intoxication, uncomplicated; N39.0 Urinary tract infection, site not specified; E11.9 Type 2 diabetes mellitus without complications; Z87.891 Personal history of nicotine dependence
CPT/HCPCS: 36415; 74019; 74177; 80053; 80307; 81001; 81025; 82010; 82948; 85025; 87086; 87186; 96361; 96374; 96375; 99284; J1630; J1885; J2405; J2765; J7030; Q9967